=== PATIENT | male | born 1960 | race Caucasian/White ===

== ENCOUNTER 2022-07-30 11:59 | Inpatient (IN) ==
--- NOTE | 2022-07-30 12:24 | ED Triage Note ---
Date of Service July 30, 2022 History of Present Illness This patient was briefly evaluated while in triage. An abbreviated physical exam was performed. This patient is a 62-year-old Male who presents to the ED for evaluation of "well I've got a lot of fluid on my gut." Pt. referred by [facility]. He was experiencing abdominal pain, dyspnea on exertion x2 months. Abdomen is growing, making it harder to breathe. Physical Exam VITALS: Vitals are noted on the nurse's note and reviewed by myself. GENERAL: This is a 62 year old male, in no acute distress, nondiaphoretic, well- developed well-nourished. SKIN: No obvious rashes, edema, erythema HEAD: Normocephalic atraumatic. EYES: Conjunctivae without injection, sclerae without icterus. NECK: No JVD. LUNGS: No retractions or accessory muscle use. MUSCULOSKELETAL: Normal gait. NEURO: Patient was alert and oriented to person place and time. No focal neurological deficits. Initial orders for labs and / or imaging were placed and patient was placed in the waiting area until a bed is available. Please see further documentation for the full ED course.
[2022-07-30 14:34] LABS: Hematocrit (blood only) 36.6 % (42.0-52.0); Hemoglobin 12.1 g/dl (14.0-18.0); Mean Corpuscular Hemoglobin 28.8 pg (25.0-34.0); Mean Corpuscular Hgb Conc 33.1 g/dL (32.0-36.0); Mean Corpuscular Volume 87.1 fL (80.0-100.0); Mean Platelet Volume 9.6 fL (9.4-12.4); Platelet Count 531 K/uL (130-400); RDW Coefficient of Variation 12.9 % (11.5-14.5); RDW Standard Deviation 40.7 fL (36.4-46.3); White Blood Count 22.14 K/ul (4.8-10.8)
[2022-07-30 14:44] LABS: Prothrombin Time 10.9 Seconds (9.0-12.0)
[2022-07-30 14:48] LABS: Albumin Level 3.1 gm/dl (3.4-5.0); Bilirubin,Total 0.6 mg/dl (0.2-1.0); Calcium 8.5 mg/dl (8.6-10.3)
[2022-07-30 14:55] LABS: Albumin Globulin Ratio 0.8 (0.9-2); BUN Creatinine Ratio 27.8 (10-20); Creatinine Clr Calc Pharmacy 67.1 ml/min; Est GFR (African American) 95.2 ml/min; Est GFR (Non-African American) 82.2 ml/min; Globulin 3.8 gm/dl (2.5-4.0); Total Protein 6.9 gm/dl (6.0-8.3)
[2022-07-30 14:57] LABS: Basophils # (auto) 0.02 K/uL (0-0.2); Basophils % (auto) 0.1 %; Immature Granulocytes # (auto) 0.09 K/uL (0.01-0.20); Immature Granulocytes % (auto) 0.4 %; Lymphocytes # (auto) 0.73 K/uL (1.2-3.4); Lymphocytes % (auto) 3.3 %; Monocytes # (auto) 1.35 K/uL (0.11-0.59); Monocytes % (auto) 6.1 %; Neutrophils # (auto) 19.95 K/uL (1.40-6.50); Neutrophils % (auto) 90.1 %
[2022-07-30 14:58] LABS: Troponin I High Sensitivity 31.3 pg/ml (0-20)
--- NOTE | 2022-07-30 15:22 | Electrocardiogram Report ---
Test Reason : Blood Pressure : / mmHG Vent. Rate : 108 BPM Atrial Rate : 108 BPM P-R Int : 162 ms QRS Dur : 092 ms QT Int : 338 ms P-R-T Axes : 042 033 051 degrees QTc Int : 452 ms Sinus tachycardia Cannot rule out Anterior infarct , age undetermined Abnormal ECG No previous ECGs available Confirmed by Rodriguez De La Cruz ([id number]) on 07/30/2022 3:22:39 PM Referred By: Confirmed By:Rodriguez De La Cruz
[2022-07-30] MEDS ORDERED: OPTIRAY 350 100ml IV ONE (15:49)
--- NOTE | 2022-07-30 16:10 | CT Scan Report ---
ABDOMEN AND PELVIS CT WITH IV CONTRAST CT DOSE: 501.04 mGy.cm HISTORY: Acute generalized abdominal pain with soft tissue edema. Abdominal pain, edema TECHNIQUE: Multiaxial CT images of the abdomen and pelvis were performed following the IV administrat ion of 88 cc of Optiray, A dose lowering technique was utilized adhering to the principles of ALARA. COMPARISON STUDY: Chest radiograph of same day FINDINGS: Extensive innumerable pulmonary metastatic lesions throughout the imaged lung valentino measur ing up to approximately 2 cm with intralobular septal thickening suggestive of associated lymphangiti c carcinomatosis. Metastatic borderline enlarged cardiophrenic lymph nodes. The spleen, and adrenal glands are unremarkable. The pancreatic duct measures the upper limits of nor mal at 4 mm. No discrete pancreatic mass identified. There are several scattered hepatic metastasis m easuring up to 3.5 cm. Mild marginal nodularity of the liver may represent cirrhosis versus pseudocir rhosis. Patent portal vein. Unremarkable gallbladder. No hydronephrosis. Subcentimeter hypodense focu s of the interpolar left kidney is too small to characterize. Decompressed urinary bladder with wall thickening. Prostamegaly. Atherosclerosis of the aorta and branch vessels. Pathologic lymphadenopathy is noted within the periportal/pericaval distributions and retroperitoneum. Left aortic index lymph node measures 2.9 x 2.3 cm on image 185. Questioned filling defects within the left external iliac ve in on image 362. Mild adjacent inflammatory stranding. There is moderate fecal retention within the rectum. Mild colonic diverticulosis. Probable serosal im plants of the transverse colon. Moderate colonic fecal retention. There is a 4.2 x 2.0 x 5.0 cm focus of masslike thickening in the cecum and ileocecal valve with circumferential terminal ileal wall thi ckening. Upstream dilated loops of small bowel with air-fluid levels measure up to 4.2 cm. There is a large amount of abdominal pelvic ascites. Moderate peritoneal/omental carcinomatosis. The visualized appendix appears noninflamed. Moderate generalized body wall edema. Unremarkable soft tissues. No ac vidhi fracture or destructive bone lesion identified. IMPRESSION: 1. 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 There is narrowing of the ileocecal valve with result ant upstream small bowel obstruction. 2. Extensive pulmonary metastasis is noted in conjunction with metastatic lymphadenopathy of the ches t and abdomen along with hepatic, omental and peritoneal carcinomatosis. 3. Large volume of abdominal pelvic ascites. 4. Questioned filling defects within the left external iliac vein is likely secondary to mixing artif act. As a precautionary measure, correlation with lower extremity Doppler recommended to exclude a DV T. 5. Additional findings as above. ACT 112: Negative or not required by law. The above report was generated using voice recognition software. It may contain grammatical, syntax o r spelling errors. Electronically signed by: Gurdeep Ventura M.D. 07/30/2022 4:09 PM
--- NOTE | 2022-07-30 16:10 | XRay Report ---
XR chest 1V portable HISTORY: 62 years-old Male Abdominal pain, edema acute chest and abdominal pain COMPARISON: CT abdomen and pelvis of same day. TECHNIQUE: AP view of the chest FINDINGS: Extensive innumerable predominantly subcentimeter nodules throughout all lung valentino. No pneumothorax . Mild blunting of the costophrenic angles suggestive of atelectasis. Mild right hemidiaphragmatic el evation. The bones appear grossly intact. IMPRESSION: Extensive pulmonary metastasis. Please refer to the CT abdomen and pelvis of same day for additional findings. ACT 112: Negative or not required by law. The above report was generated using voice recognition software. It may contain grammatical, syntax o r spelling errors. Electronically signed by: Gurdeep Ventura M.D. 07/30/2022 4:09 PM
[2022-07-30 18:01] LABS: Partial Thromboplastin Ratio 0.9; Partial Thromboplastin Time 25.9 Seconds (21.0-31.0)
[2022-07-30 18:03] LABS: Magnesium 2.1 mg/dl (1.7-2.4)
[2022-07-30 18:08] LABS: Phosphorus 4.1 mg/dl (2.5-4.9)
[2022-07-30] MEDS ORDERED: PIPERACILLIN/TAZOBACTAM 4.5 GM/120 ML BAG IV ONE (18:15)
--- NOTE | 2022-07-30 18:39 | History & Physical Report ---
Date of Service July 30, 2022 Assessment & Plan (1) SBO (small bowel obstruction): Plan: Redd Puckett is a 62-year-old male with no known past medical history and no PCP who presented today referred from urgent care due to abdominal pain and swelling. Found to have metastatic colon cancer with subsequent SBO. SBO Narrowing of the ileocecal valve with resultant upstream small bowel obstruction secondary to soft tissue prominence within the cecum and ileocecal valve suggestive of primary mucosal colonic malignancy Case discussed my attending with general surgery who felt patient is appropriate for this facility at this time General surgery consult placed Patient has NG tube in place continue Maintain strict n.p.o. 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, liver, omentum, peritoneum (see CT results for details) Will consult oncology as patient is interested in discussing possible treatment options given his advanced disease Both myself and attending physician did discuss with the patient that his cancer seems to be very advanced and treatment options may be limited, unlikely to achieve cure Ascites Large volume of abdominopelvic ascites per CT Consider therapeutic paracentesis Filling defet - Filling defects within the left external iliac vein is likely secondary to mixing artifact - Pending Doppler of lower extremities Elevated troponin Likely type II demand DVT prophylaxis: Lovenox 40 mg SQ daily FEN/GI: N.p.o., NG tube in place Dispo: Admit to telemetry CODE STATUS: Full, discussed with patient (2) Colon cancer: (3) Pulmonary metastases: (4) Ascites: History of Present Illness Primary Care Provider: NO PCP Redd Puckett is a 62-year-old male with no known past medical history and no PCP who presented today referred from urgent care due to abdominal pain and swelling. Patient had presented mostly for a gradual buildup of fluid in his abdomen over the past few months. He did report abdominal pain and shortness of breath on exertion. The patient states he never had a regular doctor and had not had any preventative medical care. 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 There is narrowing of the ileocecal valve with resultant upstream small bowel obstruction. Extensive pulmonary metastasis is noted in conjunction with metastatic lymphadenopathy of the chest and abdomen along with hepatic, omental and peritoneal carcinomatosis. Large volume of abdominal pelvic ascites. Questioned filling defects within the left external iliac vein is likely secondary to mixing artifact. As a precautionary measure, correlation with lower extremity Doppler recommended to exclude a DVT. Lab work showed WBC of 12.14, Hgb 12.1, Plt count 531. Sodium level 131, BUN 27 creatinine 0.97, calcium 8.5, AST 53, ALT 48, alk phos 437, troponin 31.3. Procalcitonin 5.39, CEA 70.1. At this time he continues to report abdominal bloating, discomfort, and difficulty taking deep breaths. Can't specify when last BM was but not within past few days. Denies f/c, n/v, CP, palp, HARDING, dizziness. He is understandably concerned/distraught about his cancer diagnosis and is interested in discussing possible treatment options. Allergies Allergy/AdvReac Type Severity Reaction Status Date / Time No Known Allergies Allergy Unverified 07/30/22 19:24 Home Medications Medication Instructions Recorded Confirmed Type naproxen sodium 220 mg tablet 220 mg PO BID PRN Pain 07/30/22 07/30/22 History (Aleve) Past Med/Surg History Social History Smoking Status: Former smoker Feels Safe at Home: Yes Review of Systems Review of Systems: Per HPI Physical Exam Physical Exam: GENERAL: A&Ox3. NAD. HEENT: PERRL, EOMI. Moist mucous membranes. NECK: No JVD. No lymphadenopathy. CHEST/LUNGS: CTAB A/P. No crackles, wheezes, rales, rhonchi. HEART: RRR. No m/g/r. No carotid bruits. ABDOMEN: NT/ND, soft. BS+ x4 EXTREMITIES: No cyanosis, no clubbing, no edema SKIN: Warm and dry. No rashes or lesions. NEUROLOGIC: No FND. Results & Data Results & Data Vital Signs (Past 12 Hours) Vital Signs Temp Pulse Pulse Resp BP BP Pulse Ox 07/30/22 16:38 114 H 07/30/22 16:08 117 H 20 94 07/30/22 16:08 117 H 22 132/87 94 07/30/22 12:22 36.7 C 115 H 22 121/81 97 O2 Del Method 07/30/22 16:38 07/30/22 16:08 Room Air 07/30/22 16:08 Room Air 07/30/22 12:22 Room Air Code Status & VTE Plan VTE Prophylaxis Plan VTE Prophylaxis will be ordered: Yes Supervising Physician Co-Signing Physician Notes I personally saw and examined the patient. I verified all correa points and agree with resident physician Dr Charles PA-C with the following exceptions and/or additions: 62 year old male presents to the ER from [facility] [employer] with gradually worsening abdominal distension for the last 2 months. He has no PCP and no prior colonoscopies. CT concerning for small bowel obstruction at the ileocecal valve due to a mass however he reports no problems with bowel movements, no melena, hematochezia, nausea, vomiting, hematemesis. Also concerning for extensive metastatic spread of disease. I discussed case with surgery (Dr Domingo) on admission. O/E Alert and orientated x3, HS RRR no murmurs, Chest rhonchi b/l, using accessory muscles in mild respiratory distress, Abdo distended with normal BS, generalized mild tenderness without guarding or rebound tenderness A/P Metastatic suspected colon cancer - CEA 70.1, no prior colonoscopy, consult [facility] as likely mass will need to be removed to avoid SBO and can get a tissue sample then. Ascites - should probably be drained prior to surgery to avoid hypotension during surgery and make the surgery easier to perform. US paracentesis ordered with cytology and cultures which can be done in AM. Low suspicion of SBP. Small bowel obstruction - concerning on imaging but not from history, certainly high risk from this though, NG tube placed by general surgery but suspect output will be minimal given his symptoms. NPO, IV fluids. Abnormal CT - possible filling defects in left external iliac vein - will get US venous doppler b/l to further investigate for DVT Elevated high-sensitivity Troponin I - no chest pain or shortness of breath to suggest ACS, will discontinue further labs. Given metastatic cancer, SBO and ascites will cover empirically with IV antibiotics pending ascitic and blood cultures Resident Activity Tracking Resident Involvement: Resident Care Provided Care Provided: Adult Hospital Medicine
--- NOTE | 2022-07-30 20:01 | Surgery Consultation ---
Date of Consultation July 30, 2022 Assessment & Plan (1) SBO (small bowel obstruction): (2) Colon cancer: (3) Pulmonary metastases: (4) Ascites: Plan Patient is being admitted on the hospitalist service. We recommend proceeding as follows: Due to concern for small bowel obstruction would recommend continuing n.p.o. status and maintaining the patient with an NG tube to low continuous suction. Consideration be given to removing this NG tube if patient has improvement of his abdominal exam or improvement of his bowel function There is concern on imaging the patient has an underlying colorectal cancer which by imaging appears may be metastatic. Unfortunately the patient has not had any colonoscopy or tissue diagnosis. The primary service has consulted oncology for further recommendations. Would recommend providing antiemetics if any nausea or vomiting ensue Provide analgesics as needed Provide IV fluid for hydration The primary service has ordered a lower extremity venous Doppler due to concern noted on CT scan for potential DVT. Additional recommendations be forthcoming based on his clinical course as Supervising Physician Co-Signing Physician Notes This case was discussed with the surgical PA. I agree with this plan History of Present Illness Reason for Consultation: Small bowel obstruction with concern for colon cancer History of Present Illness This is a 62-year-old male who presents to the emergency department [facility] secondary to abdominal pressure and generalized abdominal discomfort along with increased abdominal girth. He notes that this has been going on for "a few months.". The patient says that he has never sought medical attention for this issue prior to today. Patient says that he has never undergone a colonoscopy. He has never had abdominal surgery. I asked patient about associated symptoms and he notes a decreased appetite along with an unspecified weight loss. He does report he has been straining to have a bowel movement with constipation issues which is out of the norm for him. He denies any melena or hematochezia. He also denies bright blood per rectum. In addition the patient notes that lately his stools have been decreased caliber. He denies any known family history of colon cancer Since arrival to the hospital the patient has had labs and imaging which I independently reviewed. Chest x-ray showed extensive masses concerning for pulmonary metastases. A CT scan of the abdomen pelvis showed the patient had a soft tissue prominence within the cecum near the ileocecal valve suggestive of a primary colonic malignancy. This causes narrowing of the ileocecal valve which resulted in upstream small bowel obstruction. Pulmonary metastases are noted along with metastatic lymphadenopathy of the chest and abdomen. There is also findings concerning for hepatic and omental as well as peritoneal carcinomatosis. There is a large volume of abdominal pelvic ascites. In addition there is concern the patient has a filling defect within the left iliac vein raising the possibility of a DVT. Labs include a CBC her white blood cell count is elevated 22.1. Hemoglobin and hematocrit 12.1 and 36.6. Platelet count is 531,000. Coagulation studies are normal. Chemistry profile shows sodium is 131 with a normal potassium. BUN has a slight elevation at 27. His creatinine is normal. The patient's magnesium and total bilirubin are normal. There is a slight elevation of the AST at 53. ALT is nonelevated alkaline phosphatase is elevated at 437. Lipase is nonelevated. A CEA level is markedly elevated at 70.1 a COVID test is noted be negative. At the time of my interview patient was resting comfortably in bed. He was in no distress. He has had an NG tube placed and notes that this has provided some alleviation of his abdominal discomfort As noted the patient denies any prior surgeries. He also denies any known medical problems but admits that he does not regularly see any medical providers. 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: No Beliefs That Will Affect Care: None Current Living Situation: Alone Feels Safe at Home: Yes Assistive Devices: None Review of Systems Constitutional: no fever and no chills Eyes: no eye pain Ear, Nose, Mouth, Throat: no ear pain Respiratory: no cough and no dyspnea Cardiovascular: no chest pain Gastrointestinal: as per Subjective / HPI Genitourinary: no dysuria Integumentary: no rash Neurologic: no localized weakness Physical Exam Constitutional: WD/WN, vitals as above Eyes: no conjunctival abnormality ENMT: Ears: no hearing impairment and no external ear abnormality Mouth: no oropharynx abnormality Neck: trachea midline Respiratory: normal respiratory effort; no respiratory distress and no labored breathing Cardiovascular: Rate/Rhythm: regular rate and regular rhythm Gastrointestinal (Abdomen): Abdomen is rotund and markedly distended. Is somewhat tympanic to percussion. There is palpable ascites. There is no rebound tenderness or guarding. There is no pain with palpation Musculoskeletal: No calf tender Skin: no rashes Neurologic: moves all extremities Psychiatric: A+Ox3, euthymic affect Results & Data Vital Signs (Past 12 Hours) Vital Signs Temp Pulse Pulse Resp BP BP Pulse Ox 07/30/22 16:38 114 H 07/30/22 16:08 117 H 20 94 07/30/22 16:08 117 H 22 132/87 94 07/30/22 12:22 36.7 C 115 H 22 121/81 97 O2 Del Method 07/30/22 16:38 07/30/22 16:08 Room Air 07/30/22 16:08 Room Air 07/30/22 12:22 Room Air PG Care Time/CCT Total # of Minutes Spent Total Time Spent with Patient: Total time spent is greater than 50% in coordination of care (as documented) at patient's floor/unit and/or counseling patient: Coding Level of Care Code 04640 IN/OBS CONSULT LVL 5,80M Diagnoses SBO (small bowel obstruction) K56.609 Colon cancer C18.9 Pulmonary metastases C78.00 Ascites R18.8
--- NOTE | 2022-07-30 21:06 | Billing Data ---
Date of Service July 30, 2022 Coding Level of Care Code 05485 INT INP/OBS CARE
[2022-07-30] MEDS ORDERED: ONDANSETRON INJ 2 MG/ML 2 ML VIAL IV PRN (21:10)
[2022-07-30] MEDS ORDERED: ACETAMINOPHEN 1,000 MG/100 ML VIAL IV PRN (21:10)
[2022-07-30] MEDS: ENOXAPARIN INJ 40 MG/0.4 ML SYR SQ SCH (22:08)
[2022-07-30] MEDS: LACTATED RINGER'S 1,000 ML IV SCH (22:09)
--- NOTE | 2022-07-30 23:38 | Ultrasound Report ---
Exam(s): US VENOUS BILATERAL LOWER EXTREMITIES EXAM: US Duplex Bilateral Lower Extremities Veins CLINICAL HISTORY: correlate with CT ?DVT. TECHNIQUE: Real-time duplex ultrasound scan of the bilateral lower extremity veins integrating B-mode two-dimensional vascular structure, Doppler spectral analysis, color flow Doppler imaging and compression. COMPARISON: No prior imaging is available at the time of image interpretation. FINDINGS: Right deep veins: The distal right external iliac vein is patent. No DVT in the right common femoral, femoral, proximal deep femoral or popliteal veins. The veins demonstrate normal color flow, are normally compressible, with normal phasic flow and/or augmentation response. The interrogated calf veins are patent. Right superficial veins: Unremarkable. No thrombus in the saphenofemoral junction. Left deep veins: The distal left external iliac vein is patent. No DVT in the left common femoral, femoral, proximal deep femoral or popliteal veins. The veins demonstrate normal color flow, are normally compressible, with normal phasic flow and/or augmentation response. The interrogated calf veins are patent. Left superficial veins: Unremarkable. No thrombus in the saphenofemoral junction. Soft tissues: No acute findings. No popliteal cyst. IMPRESSION: No evidence for deep vein thrombosis involving the bilateral lower extremities. Electronically signed by: Amado Mancera MD 07/30/22 23:37 PM
--- NOTE | 2022-07-31 00:56 | Emergency Department Note ---
Impression & Plan Pulmonary metastases, SBO (small bowel obstruction), Colon cancer, Abdominal ascites Admit to the [facility] ED Provider Note NAME: ZBIGNIEW COLON AGE: 62 SEX: M ARRIVES VIA: Walk-In INFORMANT: Patient ED PROVIDER(S): Tana Rosales DO CHIEF COMPLAINT: Abdominal pain PLAN: Disposition: Admit to the [facility] Condition: Guarded MEDICAL DECISION MAKING: This is a 62-year-old male patient who went to [facility] today complaining of worsening abdominal pain and distention. Patient was evaluated there and diagnosed with ascites. He was sent here to the emergency department for further evaluation. 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 There is also significant metastatic disease to the lungs. Patient has not followed up with a physician in quite some time. He does smoke. Laboratory studies reveal leukocytosis of 22,000, hemoglobin of 12, platelet count of 531, sodium 131, BUN of 27, and troponin of 31. An NG tube was placed and the case was discussed with general surgery. The pa dandre will be admitted by the [facility]. Triage Nursing notes reviewed and agree with them. Vital Signs: reviewed and remarkable for tachycardia Differential diagnosis: Ascites, cirrhosis, bowel obstruction, primary carcinoma ER treatment provided: Cardiac monitoring Twelve-lead EKG NG tube Supplemental oxygen Diagnostics interpreted by me: ECG: Sinus tachycardia at [address] segment elevation or signs of ischemia Cardiac Monitoring: Sinus tachycardia at 112 Laboratory studies: See below Imaging studies: As per radiology Portable chest x-ray: See report CT scan of the abdomen pelvis: See report HPI: 62/M arrives for evaluation of abdominal pain and distention. Patient has noticed over the past 1 month that his abdomen has increased in size and has become increasingly painful. It is quite difficult for him to take a deep breath. He denies any history of health problems but he does not seen a doctor. He does have a longstanding history of tobacco use. He quit smoking 3 weeks ago because he could not breathe. PAST MEDICAL HISTORY:None PAST SURGICAL HISTORY:None FAMILY HISTORY:See Below SOCIAL HISTORY:Patient quit smoking 3 weeks ago, he does work in [employer], he lives alone as his had in 2019. HOME MEDICATIONS:None ALLERGIES:None VITALS:See Below PHYSICAL EXAMINATION: HEENT: Head - normocephalic and atraumatic. Pupils are equal, round, and reactive to light. Extraocular eye muscles are intact, and sclera are anicteric. Nose - moist nasal mucosa without discharge. Mouth - moist buccal mucosa. Oropharynx is nonerythematous and there is no tonsillar exudate or edema noted. Neck: Supple; no cervical lymphadenopathy noted Heart: Tachycardic rate and regular rhythm. There is a normal S1 and S2 with no murmurs, clicks, or gallops appreciated. Lungs: Clear to auscultation bilaterally with no wheezes, rales, or rhonchi. Abdomen: Extremely distended with hyperactive bowel sounds. The abdomen was nontender. Extremities: No evidence of cyanosis, clubbing, or edema. There are easily pal pable peripheral pulses. Skin: Pale, warm and dry with good turgor and no rashes. ED COURSE: Times/Reassessments: 1630: Patient was evaluated in room A-9. A complete history and physical was performed. An IV lock was initiated and labs are drawn as above. Patient was originally evaluated in triage and had laboratory studies ordered and chest x-ray and CT scan ordered. Patient was placed on supplemental oxygen on my exam as he was hypoxic with conversation. An order was placed for continuous cardiac monitoring. The patient was in a sin us tachycardia at 112 I reviewed the results of the labs and CT scan with the patient. He had an NG tube placed. Discussed the case with general surgery and with the [facility]. Tana Rosales DO Past Med/Surg History Medical History (Updated 08/01/22 @ 10:45 by Mana Ritter DNP) Abdominal pain, generalized Advanced care planning/counseling discussion Cancer related pain Palliative care by specialist Social History Smoking Status: Former smoker Hx Alcohol Use: Yes Hx Substance Use: No Communication Ability: Effective Independent Contractor Required: No Beliefs That Will Affect Care: None Current Living Situation: Alone Feels Safe at Home: Yes Assistive Devices: None Allergies Allergies Allergy/AdvReac Type Severity Reaction Status Date / Time No Known Allergies Allergy Unverified 07/30/22 19:24 Home Meds Home Medications Medication Instructions Recorded Confirmed naproxen sodium 220 mg tablet 220 mg PO BID PRN Pain 07/30/22 07/30/22 (Alejosé miguel) Results & Data (ED) Vital Signs Vital Signs - 24 hr 07/30/22 12:22 07/30/22 16:08 07/30/22 16:08 Temperature 36.7 C Temperature Source Temporal Artery Scan Pulse Rate 115 H 117 H Pulse Rate [Apical] 117 H Pulse Rate from SpO2 Sensor Pulse Rhythm Regular Regular Respiratory Rate 22 22 20 Respiratory Effort / Characteristics Non-Labored Respiratory Depth Normal Normal Blood Pressure 121/81 Blood Pressure [Right Arm] 132/87 Blood Pressure Mean 94 Blood Pressure Mean [Right Arm] 102 Pulse Oximetry 97 94 94 Oxygen Delivery Method Room Air Room Air Room Air Sepsis Recent Fever Within 48 Hours No Sepsis New/Unexplained Change in Mental Status No Sepsis Action Taken by Nursing No Action Required 07/30/22 16:38 07/30/22 17:01 07/30/22 17:30 Temperature Temperature Source Pulse Rate 114 H 115 H 114 H Pulse Rate [Apical] Pulse Rate from SpO2 Sensor 113 H Pulse Rhythm Respiratory Rate 24 23 Respiratory Effort / Characteristics Respiratory Depth Blood Pressure Blood Pressure [Right Arm] Blood Pressure Mean Blood Pressure Mean [Right Arm] Pulse Oximetry 95 Oxygen Delivery Method Sepsis Recent Fever Within 48 Hours Sepsis New/Unexplained Change in Mental Status Sepsis Action Taken by Nursing 07/30/22 18:00 07/30/22 18:30 Temperature Temperature Source Pulse Rate 115 H 116 H Pulse Rate [Apical] Pulse Rate from SpO2 Sensor 115 H 113 H Pulse Rhythm Respiratory Rate 23 21 Respiratory Effort / Characteristics Respiratory Depth Blood Pressure Blood Pressure [Right Arm] Blood Pressure Mean Blood Pressure Mean [Right Arm] Pulse Oximetry 95 96 Oxygen Delivery Method Sepsis Recent Fever Within 48 Hours Sepsis New/Unexplained Change in Mental Status Sepsis Action Taken by Nursing Laboratory Data 07/30/22 14:15 07/30/22 14:15 Lab Results 07/30/22 07/30/22 07/30/22 Range/Units 14:15 14:15 14:15 WBC 22.14 H (4.8-10.8) K/ul RBC 4.20 L (4.70-6.10) M/uL Hgb 12.1 L (14.0-18.0) g/dl Hct 36.6 L (42.0-52.0) % MCV 87.1 (80.0-100.0) fL MCH 28.8 (25.0-34.0) pg MCHC 33.1 (32.0-36.0) g/dL RDW Std Deviation 40.7 (36.4-46.3) fL RDW Coeff of Andrew 12.9 (11.5-14.5) % Plt Count 531 H (130-400) K/uL MPV 9.6 (9.4-12.4) fL Immature Gran % (Auto) 0.4 % Neut % (Auto) 90.1 % Lymph % (Auto) 3.3 % Ferry % (Auto) 6.1 % Eos % (Auto) 0.0 % Baso % (Auto) 0.1 % Neut # (Auto) 19.95 H (1.40-6.50) K/uL Lymph # (Auto) 0.73 L (1.2-3.4) K/uL Ferry # (Auto) 1.35 H (0.11-0.59) K/uL Eos # (Auto) 0.00 (0-0.50) K/uL Baso # (Auto) 0.02 (0-0.2) K/uL Immature Gran # (Auto) 0.09 (0.01-0.20) K/uL PT 10.9 (9.0-12.0) Seconds INR 1.0 (0.9-1.1) APTT (21.0-31.0) Seconds PTT Ratio Sodium 131 L (136-145) mmol/L Potassium 5.0 (3.5-5.1) mmol/L Chloride 98 (98-107) mmol/L Carbon Dioxide 23 (21-32) mmol/L Anion Gap 10 (3-11) BUN 27 H (6-23) mg/dl Creatinine 0.97 (0.6-1.4) mg/dl Est Cr Clr Drug Dosing 67.1 ml/min Est GFR ( Amer) 95.2 ml/min Est GFR (Non-Af Amer) 82.2 ml/min BUN/Creatinine Ratio 27.8 H (10-20) Glucose 100 H (70-99(Fasting)) mg/dl Calcium 8.5 L (8.6-10.3) mg/dl Phosphorus (2.5-4.9) mg/dl Magnesium (1.7-2.4) mg/dl Total Bilirubin 0.6 (0.2-1.0) mg/dl AST 53 H (13-39) U/L ALT 48 (7-52) U/L Alkaline Phosphatase 437 H (34-104) U/L Troponin I High Sens 31.3 H (0-20) pg/ml B-Natriuretic Peptide (0-100) pg/ml Total Protein 6.9 (6.0-8.3) gm/dl Albumin 3.1 L (3.4-5.0) gm/dl Globulin 3.8 (2.5-4.0) gm/dl Albumin/Globulin Ratio 0.8 L (0.9-2) Lipase 15 (11-82) U/L Carcinoembryonic Ag (0-2.5) ng/ml Procalcitonin (0-0.5) ng/ml SARS-CoV-2, RNA, NAAT (NEGATIVE) Staphylococcus sp PCR (NotDetected) Staph aureus (PCR) (NotDetected) mecA/C & MREJ Resist Gene (NotDetected) mecA/C-Methicil Resis Gene (NotDetected) Staph epidermidis (PCR) (NotDetected) Bld Cult ID Panel PCR (NotDetected) 07/30/22 07/30/22 07/30/22 Range/Units 14:15 14:15 14:15 WBC (4.8-10.8) K/ul RBC (4.70-6.10) M/uL Hgb (14.0-18.0) g/dl Hct (42.0-52.0) % MCV (80.0-100.0) fL MCH (25.0-34.0) pg MCHC (32.0-36.0) g/dL RDW Std Deviation (36.4-46.3) fL RDW Coeff of Andrew (11.5-14.5) % Plt Count (130-400) K/uL MPV (9.4-12.4) fL Immature Gran % (Auto) % Neut % (Auto) % Lymph % (Auto) % Ferry % (Auto) % Eos % (Auto) % Baso % (Auto) % Neut # (Auto) (1.40-6.50) K/uL Lymph # (Auto) (1.2-3.4) K/uL Ferry # (Auto) (0.11-0.59) K/uL Eos # (Auto) (0-0.50) K/uL Baso # (Auto) (0-0.2) K/uL Immature Gran # (Auto) (0.01-0.20) K/uL PT (9.0-12.0) Seconds INR (0.9-1.1) APTT (21.0-31.0) Seconds PTT Ratio Sodium (136-145) mmol/L Potassium (3.5-5.1) mmol/L Chloride (98-107) mmol/L Carbon Dioxide (21-32) mmol/L Anion Gap (3-11) BUN (6-23) mg/dl Creatinine (0.6-1.4) mg/dl Est Cr Clr Drug Dosing ml/min Est GFR ( Amer) ml/min Est GFR (Non-Af Amer) ml/min BUN/Creatinine Ratio (10-20) Glucose (70-99(Fasting)) mg/dl Calcium (8.6-10.3) mg/dl Phosphorus 4.1 (2.5-4.9) mg/dl Magnesium 2.1 (1.7-2.4) mg/dl Total Bilirubin (0.2-1.0) mg/dl AST (13-39) U/L ALT (7-52) U/L Alkaline Phosphatase (34-104) U/L Troponin I High Sens (0-20) pg/ml B-Natriuretic Peptide 56 (0-100) pg/ml Total Protein (6.0-8.3) gm/dl Albumin (3.4-5.0) gm/dl Globulin (2.5-4.0) gm/dl Albumin/Globulin Ratio (0.9-2) Lipase (11-82) U/L Carcinoembryonic Ag (0-2.5) ng/ml Procalcitonin 5.39 H (0-0.5) ng/ml SARS-CoV-2, RNA, NAAT (NEGATIVE) Staphylococcus sp PCR (NotDetected) Staph aureus (PCR) (NotDetected) mecA/C & MREJ Resist Gene (NotDetected) mecA/C-Methicil Resis Gene (NotDetected) Staph epidermidis (PCR) (NotDetected) Bld Cult ID Panel PCR (NotDetected) 07/30/22 07/30/22 07/30/22 Range/Units 14:15 16:55 17:20 WBC (4.8-10.8) K/ul RBC (4.70-6.10) M/uL Hgb (14.0-18.0) g/dl Hct (42.0-52.0) % MCV (80.0-100.0) fL MCH (25.0-34.0) pg MCHC (32.0-36.0) g/dL RDW Std Deviation (36.4-46.3) fL RDW Coeff of Andrew (11.5-14.5) % Plt Count (130-400) K/uL MPV (9.4-12.4) fL Immature Gran % (Auto) % Neut % (Auto) % Lymph % (Auto) % Ferry % (Auto) % Eos % (Auto) % Baso % (Auto) % Neut # (Auto) (1.40-6.50) K/uL Lymph # (Auto) (1.2-3.4) K/uL Ferry # (Auto) (0.11-0.59) K/uL Eos # (Auto) (0-0.50) K/uL Baso # (Auto) (0-0.2) K/uL Immature Gran # (Auto) (0.01-0.20) K/uL PT (9.0-12.0) Seconds INR (0.9-1.1) APTT 25.9 (21.0-31.0) Seconds PTT Ratio 0.9 Sodium (136-145) mmol/L Potassium (3.5-5.1) mmol/L Chloride (98-107) mmol/L Carbon Dioxide (21-32) mmol/L Anion Gap (3-11) BUN (6-23) mg/dl Creatinine (0.6-1.4) mg/dl Est Cr Clr Drug Dosing ml/min Est GFR ( Amer) ml/min Est GFR (Non-Af Amer) ml/min BUN/Creatinine Ratio (10-20) Glucose (70-99(Fasting)) mg/dl Calcium (8.6-10.3) mg/dl Phosphorus (2.5-4.9) mg/dl Magnesium (1.7-2.4) mg/dl Total Bilirubin (0.2-1.0) mg/dl AST (13-39) U/L ALT (7-52) U/L Alkaline Phosphatase (34-104) U/L Troponin I High Sens (0-20) pg/ml B-Natriuretic Peptide (0-100) pg/ml Total Protein (6.0-8.3) gm/dl Albumin (3.4-5.0) gm/dl Globulin (2.5-4.0) gm/dl Albumin/Globulin Ratio (0.9-2) Lipase (11-82) U/L Carcinoembryonic Ag 70.1 H (0-2.5) ng/ml Procalcitonin (0-0.5) ng/ml SARS-CoV-2, RNA, NAAT NEGATIVE (NEGATIVE) Staphylococcus sp PCR (NotDetected) Staph aureus (PCR) (NotDetected) mecA/C & MREJ Resist Gene (NotDetected) mecA/C-Methicil Resis Gene (NotDetected) Staph epidermidis (PCR) (NotDetected) Bld Cult ID Panel PCR (NotDetected) 07/30/22 Range/Units 17:25 WBC (4.8-10.8) K/ul RBC (4.70-6.10) M/uL Hgb (14.0-18.0) g/dl Hct (42.0-52.0) % MCV (80.0-100.0) fL MCH (25.0-34.0) pg MCHC (32.0-36.0) g/dL RDW Std Deviation (36.4-46.3) fL RDW Coeff of Andrew (11.5-14.5) % Plt Count (130-400) K/uL MPV (9.4-12.4) fL Immature Gran % (Auto) % Neut % (Auto) % Lymph % (Auto) % Ferry % (Auto) % Eos % (Auto) % Baso % (Auto) % Neut # (Auto) (1.40-6.50) K/uL Lymph # (Auto) (1.2-3.4) K/uL Ferry # (Auto) (0.11-0.59) K/uL Eos # (Auto) (0-0.50) K/uL Baso # (Auto) (0-0.2) K/uL Immature Gran # (Auto) (0.01-0.20) K/uL PT (9.0-12.0) Seconds INR (0.9-1.1) APTT (21.0-31.0) Seconds PTT Ratio Sodium (136-145) mmol/L Potassium (3.5-5.1) mmol/L Chloride (98-107) mmol/L Carbon Dioxide (21-32) mmol/L Anion Gap (3-11) BUN (6-23) mg/dl Creatinine (0.6-1.4) mg/dl Est Cr Clr Drug Dosing ml/min Est GFR ( Amer) ml/min Est GFR (Non-Af Amer) ml/min BUN/Creatinine Ratio (10-20) Glucose (70-99(Fasting)) mg/dl Calcium (8.6-10.3) mg/dl Phosphorus (2.5-4.9) mg/dl Magnesium (1.7-2.4) mg/dl Total Bilirubin (0.2-1.0) mg/dl AST (13-39) U/L ALT (7-52) U/L Alkaline Phosphatase (34-104) U/L Troponin I High Sens (0-20) pg/ml B-Natriuretic Peptide (0-100) pg/ml Total Protein (6.0-8.3) gm/dl Albumin (3.4-5.0) gm/dl Globulin (2.5-4.0) gm/dl Albumin/Globulin Ratio (0.9-2) Lipase (11-82) U/L Carcinoembryonic Ag (0-2.5) ng/ml Procalcitonin (0-0.5) ng/ml SARS-CoV-2, RNA, NAAT (NEGATIVE) Staphylococcus sp PCR DETECTED A (NotDetected) Staph aureus (PCR) DETECTED A (NotDetected) mecA/C & MREJ Resist Gene MRSA Not Detected (NotDetected) mecA/C-Methicil Resis Gene Not Detected (NotDetected) Staph epidermidis (PCR) DETECTED A (NotDetected) Bld Cult ID Panel PCR See PCR Comment (NotDetected) Administered Medications Enoxaparin Sodium (Enoxaparin Inj 40 Mg/0.4 Ml Syr) 40 mg SQ Q24H DWAYNE Stop: 08/29/22 21:29 Last Admin: 07/31/22 21:40 Dose: 40 mg Documented By: Admin: 07/30/22 22:08 Dose: 40 mg Documented By: CRUZ Lactated Ringer's (Lr) 1,000 mls @ 80 mls/hr IV .[id number] [facility] Stop: 08/29/22 21:09 Last Admin: 08/01/22 10:53 Dose: 80 mls/hr Documented By: Infusion: 08/01/22 10:53 Dose: 80 mls/hr Documented By: Admin: 07/31/22 23:14 Dose: 80 mls/hr Documented By: Infusion: 07/31/22 23:07 Dose: 80 mls/hr Documented By: Admin: 07/31/22 10:37 Dose: 80 mls/hr Documented By: Infusion: 07/31/22 10:37 Dose: 80 mls/hr Documented By: Admin: 07/30/22 22:09 Dose: 80 mls/hr Documented By: CRUZ Piperacillin Sod/Tazobactam (Sod 4.5 gm/ Dextrose) 120 mls @ 30 mls/hr IV Q8H [facility]; Protocol Stop: 08/10/22 02:29 Last Admin: 08/01/22 10:52 Dose: 30 mls/hr Documented By: Infusion: 08/01/22 08:08 Dose: 0 mls/hr Documented By: Admin: 08/01/22 03:23 Dose: 30 mls/hr Documented By: Infusion: 07/31/22 21:27 Dose: 0 mls/hr Documented By: Admin: 07/31/22 17:32 Dose: 30 mls/hr Documented By: Infusion: 07/31/22 14:43 Dose: 0 mls/hr Documented By: Admin: 07/31/22 10:37 Dose: 30 mls/hr Documented By: Infusion: 07/31/22 06:22 Dose: 0 mls/hr Documented By: Infusion: 07/31/22 05:58 Dose: 0 mls/hr Documented By: Admin: 07/31/22 03:48 Dose: 30 mls/hr Documented By: MARK Discontinued Medications Piperacillin Sod/Tazobactam Sod (Zosyn) 4.5 gm in 120 mls @ 240 mls/hr IV NOW ONE Stop: 07/30/22 18:44 Last Infusion: 07/30/22 19:04 Dose: 0 mls/hr Documented By: Admin: 07/30/22 18:28 Dose: 240 mls/hr Documented By: CRUZ Ioversol (Optiray 350 100ml) 88 ml IV ONCE ONE Stop: 07/30/22 15:50 Last Admin: 07/30/22 15:50 Dose: 88 ml Documented By: DIEGO Ioversol (Optiray 350 100ml) 86 ml IV ONCE ONE Stop: 08/01/22 10:45 Last Admin: 08/01/22 10:45 Dose: 86 ml Documented By: IVA Imaging Data Radiologist's Impression: Chest X-Ray 07/30/22 12:27 XR chest 1V portable HISTORY: 62 years-old Male Abdominal pain, edema acute chest and abdominal pain COMPARISON: CT abdomen and pelvis of same day. TECHNIQUE: AP view of the chest FINDINGS: Extensive innumerable predominantly subcentimeter nodules throughout all lung valentino. No pneumothorax. Mild blunting of the costophrenic angles suggestive of atelectasis. Mild right hemidiaphragmatic elevation. The bones appear grossly intact. IMPRESSION: Extensive pulmonary metastasis. Please refer to the CT abdomen and pelvis of same day for additional findings. ACT 112: Negative or not required by law. The above report was generated using voice recognition software. It may contain grammatical, syntax or spelling errors. Electronically signed by: Gurdeep Ventura M.D. 07/30/2022 4:09 PM Abdomen/Pelvis CT 07/30/22 12:[address] WITH IV CONTRAST CT DOSE: 501.04 mGy.cm HISTORY: Acute generalized abdominal pain with soft tissue edema. Abdominal pain, edema TECHNIQUE: Multiaxial CT images of the abdomen and pelvis were performed following the IV administration of 88 cc of Optiray, A dose lowering technique was utilized adhering to the principles of ALARA. COMPARISON STUDY: Chest radiograph of same day FINDINGS: Extensive innumerable pulmonary metastatic lesions throughout the imaged lung valentino measuring up to approximately 2 cm with intralobular septal thickening suggestive of associated lymphangitic carcinomatosis. Metastatic borderline enlarged cardiophrenic lymph nodes. The spleen, and adrenal glands are unremarkable. The pancreatic duct measures the upper limits of normal at 4 mm. No discrete pancreatic mass identified. There are several scattered hepatic metastasis measuring up to 3.5 cm. Mild marginal nodularity of the liver may represent cirrhosis versus pseudocirrhosis. Patent portal vein. Unremarkable gallbladder. No hydronephrosis. Subcentimeter hypodense focus of the interpolar left kidney is too small to characterize. Decompressed urinary bladder with wall thickening. Prostamegaly. Atherosclerosis of the aorta and branch vessels. Pathologic lymphadenopathy is noted within the periportal/pericaval distributions and retroperitoneum. Left aortic index lymph node measures 2.9 x 2.3 cm on image 185. Questioned filling defects within the l eft external iliac vein on image 362. Mild adjacent inflammatory stranding. There is moderate fecal retention within the rectum. Mild colonic diverticulosis. Probable serosal implants of the transverse colon. Moderate colonic fecal retention. There is a 4.2 x 2.0 x 5.0 cm focus of masslike thickening in the cecum and ileocecal valve with circumferential terminal ileal wall thickening. Upstream dilated loops of small bowel with air-fluid levels measure up to 4.2 cm. There is a large amount of abdominal pelvic ascites. Moderate peritoneal/omental carcinomatosis. The visualized appendix appears noninflamed. Moderate generalized body wall edema. Unremarkable soft tissues. No acute fracture or destructive bone lesion identified. IMPRESSION: 1. Heterogeneous masslike area of soft tissue prominence within the cecum and ileocecal valve is suggestive of a primary mucosal colonic malignancy. There is narrowing of the ileocecal valve with resultant upstream small bowel obstruction. 2. Extensive pulmonary metastasis is noted in conjunction with metastatic lymphadenopathy of the chest and abdomen along with hepatic, omental and peritoneal carcinomatosis. 3. Large volume of abdominal pelvic ascites. 4. Questioned filling defects within the left external iliac vein is likely secondary to mixing artifact. As a precautionary measure, correlation with lower extremity Doppler recommended to exclude a DVT. 5. Additional findings as above. ACT 112: Negative or not required by law. The above report was generated using voice recognition software. It may contain grammatical, syntax or spelling errors. Electronically signed by: Gurdeep Ventura M.D. 07/30/2022 4:09 PM Venous Doppler Study 07/30/22 17:08 Exam(s): US VENOUS BILATERAL LOWER EXTREMITIES EXAM: US Duplex Bilateral Lower Extremities Veins CLINICAL HISTORY: correlate with CT ?DVT. TECHNIQUE: Real-time duplex ultrasound scan of the bilateral lower extremity veins integrating B-mode two-dimensional vascular structure, Doppler spectral analysis, color flow Doppler imaging and compression. COMPARISON: No prior imaging is available at the time of image interpretation. FINDINGS: Right deep veins: The distal right external iliac vein is patent. No DVT in the right common femoral, femoral, proximal deep femoral or popliteal veins. The veins demonstrate normal color flow, are normally compressible, with normal phasic flow and/or augmentation response. The interrogated calf veins are patent. Right superficial veins: Unremarkable. No thrombus in the saphenofemoral junction. Left deep veins: The distal left external iliac vein is patent. No DVT in the left common femoral, femoral, proximal deep femoral or popliteal veins. The veins demonstrate normal color flow, are normally compressible, with normal phasic flow and/or augmentation response. The interrogated calf veins are patent. Left superficial veins: Unremarkable. No thrombus in the saphenofemoral junction. Soft tissues: No acute findings. No popliteal cyst. IMPRESSION: No evidence for deep vein thrombosis involving the bilateral lower extremities. Electronically signed by: Amado Mancera MD 07/30/22 23:37 PM Discharge Plan Visit Data Chief Complaint: Abdominal Pain Stated Complaint: FLUID IN ABDOMEN ED Provider: Tana Rosales Discharge Problem: Pulmonary metastases, SBO (small bowel obstruction), Colon cancer, Abdominal ascites Patient Disposition: Admitted As Inpatient Discharge Instructions Interventions: ED Discharge Assessment Last Done: 07/30/22 21:11 Pulmonary metastases Qualifiers: Laterality: bilateral Qualified Code(s): C78.01 - Secondary malignant neoplasm of right lung Colon cancer Qualifiers: Colon location: unspecified part of colon Qualified Code(s): C18.9 - Malignant neoplasm of colon, unspecified Abdominal ascites Qualifiers: Ascites type: malignant Qualified Code(s): R18.0 - Malignant ascites
[2022-07-31] MEDS: PIPERACILLIN/TAZOBACTAM 4.5 GM in DEXTROSE 5% 100 ML IV SCH ×3 (03:48→17:32)
[2022-07-31 04:16] LABS: Appearance Urine Clear (Clear); Bacteria Urine Automated Negative (Negative); Bilirubin Urine Negative (Negative); Blood Urine Negative (Negative); Color Urine Dark Yellow; Glucose Urine UA Negative (Negative); Ketones Urine 1+ (Negative); Leukocyte Esterase Urine Negative (Negative); Nitrite Urine Negative (Negative); Protein Urine 1+ (Negative); RBC Urine Automated 0-4 /hpf (0-4); Specific Gravity Urine > 1.045 (1.000-1.030); Urobilinogen Urine Negative (Negative)
[2022-07-31 06:59] LABS: Basophils # (auto) 0.05 K/uL (0-0.2); Basophils % (auto) 0.2 %; Immature Granulocytes # (auto) 0.12 K/uL (0.01-0.20); Immature Granulocytes % (auto) 0.5 %; Lymphocytes # (auto) 0.73 K/uL (1.2-3.4); Lymphocytes % (auto) 3.3 %; Mean Corpuscular Hemoglobin 28.9 pg (25.0-34.0); Mean Corpuscular Hgb Conc 32.4 g/dL (32.0-36.0); Mean Corpuscular Volume 89.5 fL (80.0-100.0); Mean Platelet Volume 9.4 fL (9.4-12.4); Monocytes # (auto) 1.35 K/uL (0.11-0.59); Monocytes % (auto) 6.1 %; Neutrophils # (auto) 19.71 K/uL (1.40-6.50); Neutrophils % (auto) 89.9 %; Platelet Count 456 K/uL (130-400); RDW Coefficient of Variation 12.9 % (11.5-14.5); RDW Standard Deviation 42.2 fL (36.4-46.3); White Blood Count 21.96 K/ul (4.8-10.8)
[2022-07-31 07:55] LABS: Albumin Globulin Ratio 0.9 (0.9-2); Albumin Level 2.8 gm/dl (3.4-5.0); BUN Creatinine Ratio 31.3 (10-20); Bilirubin,Total 0.6 mg/dl (0.2-1.0); Calcium 8.2 mg/dl (8.6-10.3); Creatinine Clr Calc Pharmacy 77.8 ml/min; Est GFR (African American) 92.9 ml/min; Est GFR (Non-African American) 80.2 ml/min; Globulin 3.2 gm/dl (2.5-4.0); Magnesium 2.1 mg/dl (1.7-2.4); Potassium 4.2 mmol/L (3.5-5.1)
--- NOTE | 2022-07-31 08:12 | Oncology Consultation ---
Date of Consultation July 31, 2022 Assessment & Plan (1) Colonic mass: (2) Pulmonary metastases: (3) Lymphadenopathy: (4) Peritoneal carcinomatosis: (5) Ascites: Plan 62-year-old gentleman who presented with bowel obstruction and was found to have likely cecal mass with extensive pulmonary, peritoneal and lymph node metastasis highly suggestive of stage IV colon cancer. -Await results of diagnostic paracentesis. Hopefully have enough malignant cells to perform molecular testing -Consider CT chest to complete staging work-up in anticipation of systemic chemotherapy -Consider diverting ostomy if bowel obstruction does not improve with conservative management. Will defer to surgery on this -Treatment options would depend on final pathology. However, given patient's current performance status he would benefit from palliative care evaluation to discuss goals of care. Thank you for this consult. Oncology will continue following patient while in the hospital. Please feel free to call if you have any further questions History of Present Illness Reason for Consultation: Suspected colon cancer with metastasis Attending Physician: Ingrid Wolf MD History of Present Illness Very pleasant 62-year-old gentleman who was admitted to [facility] after presenting with worsening abdominal distention and abdominal pain. While in the ED, CT abdomen and pelvis was obtained which revealed masslike area of soft tissue prominence within the cecum and ileocecal valve is suggestive of a primary mucosal colonic malignancy, extensive pulmonary metastasis, metastatic lymphadenopathy of the chest and abdomen along with hepatic, omental and peritoneal carcinomatosis and large volume of abdominal pelvic ascites. Labs revealed CEA of 70.1.He underwent diagnostic/therapeutic paracentesis earlier today Endorses shortness of breath with exertion, abdominal distention/pain and weight loss. Denies hematochezia.He states that he has never had a colonoscopy. Denies family history of G.I malignancy Allergies Allergy/AdvReac Type Severity Reaction Status Date / Time No Known Allergies Allergy Unverified 07/30/22 19:24 Home Medications Medication Instructions Recorded Confirmed Type naproxen sodium 220 mg tablet 220 mg PO BID PRN Pain 07/30/22 07/30/22 History (Aleve) Patient History Social History Smoking Status: Former smoker Hx Alcohol Use: Yes Hx Substance Use: No Communication Ability: Effective Donor Services Specialist Required: No Beliefs That Will Affect Care: None Current Living Situation: Alone Feels Safe at Home: Yes Assistive Devices: None Review of Systems Review of Systems: All systems reviewed & are unremarkable except as noted in Subjective Physical Exam Constitutional: WD/WN, vitals as above + ill appearing, + cachectic and + lethargic Eyes: PERRL, conjunctivae normal, anicteric sclerae Cardiovascular: RRR, no murmur, no edema Gastrointestinal (Abdomen): Inspection/Auscultation: + abdomen distended Results & Data Vital Signs (Past 12 Hours) Vital Signs Temp Pulse Pulse Resp BP BP BP 07/31/22 07:41 104 H 07/31/22 07:33 36.2 C L 105 H 18 149/89 H 07/31/22 04:25 105 H 07/31/22 04:00 36.8 C 105 H 14 147/78 H 07/31/22 00:41 110 H 20 127/86 07/31/22 00:15 110 H 07/30/22 23:56 07/30/22 23:56 110 H 24 118/82 07/30/22 23:07 110 H 16 130/93 07/30/22 22:00 108 H 21 07/30/22 22:00 118/92 07/30/22 21:30 109 H 21 07/30/22 21:30 128/91 07/30/22 21:00 103 H 15 07/30/22 21:00 144/89 H 07/30/22 20:30 105 H 15 07/30/22 20:30 139/93 07/30/22 20:12 131/94 07/30/22 20:12 113 H 23 07/30/22 20:38 107 H Pulse Ox Pulse Ox O2 Del Method O2 Del Method 07/31/22 07:41 07/31/22 07:33 88 L Room Air 07/31/22 04:25 07/31/22 04:00 95 Room Air 07/31/22 00:41 93 Room Air 07/31/22 00:15 07/30/22 23:56 96 Room Air 07/30/22 23:56 96 Room Air 07/30/22 23:07 92 Room Air 07/30/22 22:00 92 07/30/22 22:00 07/30/22 21:30 95 07/30/22 21:30 07/30/22 21:00 92 07/30/22 21:00 07/30/22 20:30 95 07/30/22 20:30 07/30/22 20:12 07/30/22 20:12 96 07/30/22 20:38 (2) Pulmonary metastases Laterality: bilateral Qualified Code(s): C78.01 - Secondary malignant neoplasm of right lung; C78.02 - Secondary malignant neoplasm of left lung
[2022-07-31] MEDS: LACTATED RINGER'S 1,000 ML IV SCH ×2 (10:37→23:14)
[2022-07-31 12:34] LABS: Appearance Peritoneal Fluid Cloudy; Lymphocytes, Fluid 12 %; Mono,Macrophage,Mesothelial 83 %; Neutrophils, Fluid 5 %; RBC Peritoneal Fluid Auto < 2000 /uL; WBC Peritoneal Fluid Auto 305 /ul (0-300)
[2022-07-31 12:48] LABS: Troponin I High Sensitivity 28.9 pg/ml (0-20)
[2022-07-31 12:56] LABS: A calco-baum cmplx NotReported Not Detected (NotDetected); Bact fragilis Not Reported Not Detected (NotDetected); C auris Not Reported Not Detected (NotDetected); Calbicans Not Reported Not Detected (NotDetected); Candida glabrata Not Reported Not Detected (NotDetected); Candida krusei Not Reported Not Detected (NotDetected); Cneoformans/gatti Not Reported Not Detected (NotDetected); Cparapsilosis Not Reported Not Detected (NotDetected); Ctropicalis Not Reported Not Detected (NotDetected); E cloacae compx Not Reported Not Detected (NotDetected); Efaecalis Not Reported Not Detected (NotDetected); Efaecium Not Reported Not Detected (NotDetected); Enterobacterales Not Reported Not Detected (NotDetected); Escherichia coli Not Reported Not Detected (NotDetected); H influenzae Not Reported Not Detected (NotDetected); K aerogenes Not Reported Not Detected (NotDetected); Koxytoca Not Reported Not Detected (NotDetected); Kpneumoniae grp Not Reported Not Detected (NotDetected); Lmonocyt Not Reported Not Detected (NotDetected); N meningitidis Not Reported Not Detected (NotDetected); P aeruginosa Not Reported Not Detected (NotDetected); Proteus spp Not Reported Not Detected (NotDetected); Salmonella spp Not Reported Not Detected (NotDetected); Smarcescens Not Reported Not Detected (NotDetected); Staph lugdunensis Not Reported Not Detected (NotDetected); Staph spp. Not Reported DETECTED (NotDetected); Staphaureus Not Reported DETECTED (NotDetected); Staphepi Not Reported DETECTED (NotDetected); Staphylococcus spp. DETECTED (NotDetected); Stenmaltophilia Not Reported Not Detected (NotDetected); Strep agal(GrpB) Not Reported Not Detected (NotDetected); Strep pneum Not Reported Not Detected (NotDetected); Strep pyog (GrpA) Not Reported Not Detected (NotDetected); Strep spp Not Reported Not Detected (NotDetected); mecAC Resistant Gene Not Detected (NotDetected); mecAC+MREJ Resistant Gene MRSA Not Detected (NotDetected)
[2022-07-31 13:08] LABS: Staphylococcus epidermidis DETECTED (NotDetected)
--- NOTE | 2022-07-31 13:44 | Hospitalist Progress Note ---
Date of Service July 31, 2022 Assessment & Plan (1) SBO (small bowel obstruction): Plan: Redd Puckett is a 62-year-old male with no known past medical history and no PCP (has not seen or needed a doctor since childhood) who p/w abdominal pain and swelling. Found to have metastatic colon cancer with subsequent SBO. Narrowing of the ileocecal valve with resultant upstream small bowel obstruction secondary to soft tissue prominence within the cecum and ileocecal valve suggestive of primary mucosal colonic malignancy General surgery consult placed-will discuss plan to see if needs partial colectomy vs diverting ileostomy continue NG tube to LIS Maintain strict n.p.o. continue IV fluids, watch lytes continue Zosyn for now given leukocytosis, elevated procal, and bacteremia as below (which is likely skin contaminant) As needed antiemetics and analgesics -follow CBC, CMP, Magnesium, phos, procal in AM (2) Colon cancer: Plan: Metastatic colon cancer with suspected Secondary malignant neoplasm of liver and lungs, with carcinomatosis CEA elevated at 70 LFTs elevated from liver mets New diagnosis -- patient had never had screening colonoscopy performed Soft tissue prominence within the cecum and ileocecal valve 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, liver, omentum, p eritoneum (see CT results for details) Will consult oncology as patient is interested in discussing possible treatment options given his advanced disease-pending -if going to have surgery, may need port placed concurrently -will repeat BCxs to ensure sterility prior to port placement (3) Pulmonary metastases: Plan: with acute respiratory failure with hypoxia-POx 88% on RA, now requiring 2LNC likely from colon CA monitor for need for O2 (4) Ascites: Plan: 2/2 metastatic disease paracentesis performed Gram stain/cx and cytology pending (5) Demand ischemia of myocardium: Plan: trop mildly elevated at 31 and down to 28 this AM on repeat check ECG with old anterior infarct With LE edema on exam which is likely related to ascites and peritoneal carcinomatosis, however will check ECHO for EF and for WMAs especially as will likely need surgery continue tele monitoring (6) Bacteremia: Plan: 1/4 bottles with Staph epidermidis likely skin contaminant but given leukocytosis and possible need for port as above, will repeat BCxs and continue Zosyn for now (7) Hyponatremia: Plan: Na+ 133 (up from 131 on admission) Likely from dehydration, possible SIADH? Has been on LR IVFs now and is improving no urine studies checked on admission-check Ur Na and Osmol follow BMP (8) Peripheral edema: Plan: likely 2/2 abdominal mets Dopplers venous LEs bilat negative checking ECHO follow Plan DVT proph-Lovenox SQ Dispo-continued stay on tele Admission and Anticipated Discharge Date Admission Date: July 30, 2022 Subjective Pt denies further abd pain at this time. No nausea. NGT is uncomfortable. Tearful about diagnosis of likely metastatic CA. Tele with NSR-ST low 100s Review of Systems Review of Systems: All systems reviewed & are unremarkable except as noted in HPI & below no headaches, no CP, SOB, no urinary issues Physical Exam Constitutional: WD/WN, vitals as above Eyes: + anicteric sclerae Neck: trachea midline, no thyromegaly Respiratory: normal respiratory effort, lungs clear to auscultation Cardiovascular: Rate/Rhythm: regular rate and regular rhythm Heart Sounds: no murmur Extremities: + edema (1+ pitting edema legs bilat) Gastrointestinal (Abdomen): Inspection/Auscultation: + hypoactive bowel sounds; + abdomen abnormal to inspection (NGT in place) and abdomen not distended Percussion/Palpation: abdomen soft; abdomen nontender Musculoskeletal: Extremities: no cyanosis and no clubbing Skin: no rashes, warm and dry Neurologic: moves all extremities and awake; no focal motor deficits Psychiatric: A+Ox3, euthymic affect Results & Data Results & Data Vital Signs (Past 12 Hours) Vital Signs Temp Pulse Pulse Resp BP Pulse Ox O2 Del Method 07/31/22 11:45 36.4 C L 94 H 16 145/90 H 93 Nasal Cannula 07/31/22 10:31 36.4 C L 100 H 18 146/89 H 92 Nasal Cannula 07/31/22 10:01 Nasal Cannula 07/31/22 08:22 18 93 Nasal Cannula 07/31/22 07:41 104 H 07/31/22 07:33 36.2 C L 105 H 18 149/89 H 88 L Room Air 07/31/22 04:25 105 H 07/31/22 04:00 36.8 C 105 H 14 147/78 H 95 Room Air O2 Flow Rate 07/31/22 11:45 2 03/28/23 10:31 2 07/31/22 10:01 2 07/31/22 08:22 2 07/31/22 07:41 07/31/22 07:33 07/31/22 04:25 07/31/22 04:00 Laboratory Results CBC, CMP, CEA, trop reviewed Diagnostic Findings Dopplers LE bilat negative PG Care Time/CCT Total # of Minutes Spent Total Time Spent with Patient: Total time spent is greater than 50% in coordination of care (as documented) at patient's floor/unit and/or counseling patient: Coding Level of Care Code 23982 SUB INP/OBS CARE 3/50MIN Diagnoses SBO (small bowel obstruction) K56.609 Colon cancer C18.9 Colon location: unspecified part of colon Pulmonary metastases C78.01; C78.02 Laterality: bilateral Ascites R18.8 Demand ischemia of myocardium I24.8 Bacteremia R78.81 Hyponatremia E87.1 Peripheral edema R60.9 (2) Colon cancer Colon location: unspecified part of colon Qualified Code(s): C18.9 - Malignant neoplasm of colon, unspecified (3) Pulmonary metastases Laterality: bilateral Qualified Code(s): C78.01 - Secondary malignant neoplasm of right lung; C78.02 - Secondary malignant neoplasm of left lung
--- NOTE | 2022-07-31 14:39 | Ultrasound Report ---
Ultrasound-guided paracentesis INDICATION: Ascites fluid PROCEDURE: Procedure and risks were explained. Informed consent was obtained. A final timeout was com pleted. A pocket of ascites was identified in the left lower quadrant. The left lower quadrant was pr epped and draped in sterile fashion. 1% buffered lidocaine was utilized for skin anesthesia. Utilizing ultrasound guidance, 5 Polish safety centesis catheter was advanced into the pocket of asci rashel. Ultrasound images were obtained. A total of 6 L of cloudy yellow fluid was removed at the time o f the procedure, with 1 L sent to the lab for analysis. The catheter was removed and Band-Aid applied . The patient tolerated the procedure well. IMPRESSION: Ultrasound-guided paracentesis as detailed above. Performed, dictated, and signed by Amado Ghosh PA-C; to be co-signed by Dr. Gurdeep Ventura. Electronically signed by: Gurdeep Ventura M.D. 07/31/2022 3:00 PM
--- NOTE | 2022-07-31 16:02 | XCELERA ---
[id number]
--- NOTE | 2022-07-31 19:29 | Surgery Progress Note ---
Date of Service July 31, 2022 Assessment & Plan (1) Colonic mass: (2) Peritoneal carcinomatosis: (3) SBO (small bowel obstruction): Plan Obstruction due to ileocecal mass. Diffuse thoracic and abdominal mets with evidence of carcinomatosis in the abdomen and in the face of diffuse ascites. Not likely to relieve with conservative management if due to this mass. If this is the case and he remains obstructed, will not be able to prep for a colonoscopy for tissue. This patient may benefit from proximal diversion, will consider loop ileostomy with consideration to obtain tissue for diagnosis during that time. Troponin elevated and patient has had some abnormality on EKG. Recommend cardiac evaluation in preparation for a surgical procedure. Medical Oncology to evaluate and determine if this patient is healthy enough and a candidate for chemotherapy in consideration for port insertion. Admission and Anticipated Discharge Date Admission Date: July 30, 2022 Subjective Patient feels improved today s/p paracentesis where the patient says 6 jugs were filled. He still has some remaining ascites. He denies passing flatus. Says he had a bowel movement this am but did not pass any air. He denies nausea. Physical Exam Constitutional: + frail appearing, cooperative and comfortable; not in distress Appears cachectic, ill appearing, Respiratory: normal respiratory effort; no respiratory distress, no labored breathing and does not use accessory muscles Gastrointestinal (Abdomen): Inspection/Auscultation: + abdomen distended; no abdominal wall ecchymosis and no abdominal edema Percussion/Palpation: abdomen soft and + ascites; abdomen nontender, no guarding and abdomen not rigid Neurologic: moves all extremities and awake; not confused and not obtunded Results & Data Vital Signs (Past 12 Hours) Vital Signs Temp Pulse Pulse Resp BP Pulse Ox O2 Del Method 07/31/22 15:26 104 H 07/31/22 11:45 36.4 C L 94 H 16 145/90 H 93 Nasal Cannula 07/31/22 10:31 36.4 C L 100 H 18 146/89 H 92 Nasal Cannula 07/31/22 10:01 Nasal Cannula 07/31/22 08:22 18 93 Nasal Cannula 07/31/22 07:41 104 H 07/31/22 07:33 36.2 C L 105 H 18 149/89 H 88 L Room Air O2 Flow Rate 07/31/22 15:26 07/31/22 11:45 2 07/31/22 10:31 2 07/31/22 10:01 2 07/31/22 08:22 2 07/31/22 07:41 07/31/22 07:33 PG Care Time/CCT Total # of Minutes Spent Total Time Spent with Patient: Total time spent is greater than 50% in coordination of care (as documented) at patient's floor/unit and/or counseling patient: Coding Level of Care Code 63132 SUB INP/OBS CARE MIN Diagnoses Colonic mass K63.89 Peritoneal carcinomatosis C78.6 SBO (small bowel obstruction) K56.609
[2022-07-31] MEDS: ENOXAPARIN INJ 40 MG/0.4 ML SYR SQ SCH (21:40)
[2022-08-01] MEDS: PIPERACILLIN/TAZOBACTAM 4.5 GM in DEXTROSE 5% 100 ML IV SCH ×3 (03:23→17:59)
[2022-08-01 06:52] LABS: Hematocrit (blood only) 34.1 % (42.0-52.0); Hemoglobin 11.2 g/dl (14.0-18.0); Mean Corpuscular Hemoglobin 29.1 pg (25.0-34.0); Mean Corpuscular Hgb Conc 32.8 g/dL (32.0-36.0); Mean Corpuscular Volume 88.6 fL (80.0-100.0); Mean Platelet Volume 9.6 fL (9.4-12.4); Platelet Count 425 K/uL (130-400); RDW Coefficient of Variation 13.1 % (11.5-14.5); Red Blood Count 3.85 M/uL (4.70-6.10); White Blood Count 20.17 K/ul (4.8-10.8)
[2022-08-01 07:28] LABS: Basophils # (auto) 0.03 K/uL (0-0.2); Basophils % (auto) 0.1 %; Eosinophils # (auto) 0.01 K/uL (0-0.50); Immature Granulocytes # (auto) 0.14 K/uL (0.01-0.20); Immature Granulocytes % (auto) 0.7 %; Lymphocytes # (auto) 0.69 K/uL (1.2-3.4); Lymphocytes % (auto) 3.4 %; Monocytes # (auto) 1.15 K/uL (0.11-0.59); Monocytes % (auto) 5.7 %; Neutrophils # (auto) 18.15 K/uL (1.40-6.50); Neutrophils % (auto) 90.1 %
[2022-08-01 07:30] LABS: Albumin Globulin Ratio 0.9 (0.9-2); Albumin Level 2.5 gm/dl (3.4-5.0); BUN Creatinine Ratio 29.4 (10-20); Bilirubin,Total 0.5 mg/dl (0.2-1.0); Calcium 7.8 mg/dl (8.6-10.3); Creatinine Clr Calc Pharmacy 90.7 ml/min; Est GFR (African American) 106.7 ml/min; Est GFR (Non-African American) 92.1 ml/min; Globulin 2.9 gm/dl (2.5-4.0); Magnesium 2.1 mg/dl (1.7-2.4); Phosphorus 3.3 mg/dl (2.5-4.9); Potassium 3.9 mmol/L (3.5-5.1); Total Protein 5.4 gm/dl (6.0-8.3)
--- NOTE | 2022-08-01 10:27 | Palliative Care Consultation ---
Date of Consultation August 01, 2022 Assessment & Plan (1) Palliative care by specialist: Met with pt/family. Provided overview of Palliative Medicine, a subspecialty that provides specialized medical care for people living with a serious illness by offering a focus on quality of life. We spoke about the strong evidence supporting the initiation of Palliative Care into the management of this patient with advanced met lung cancer; palliative care, when provided alongside oncologic care, leads to improved QOL, fewer depressive symptoms, better prognosis understanding and longer median survival anabell when given the overall poor prognosis and QOL issues at hand. (Taina et al. (2010). Early palliative care for patients with metastatic sjs-kbxrl-scjz lung cancer. [place] J of Med 363(3), 733-742. Doi: [id number].) Palliative Medicine is often conflated with hospice: I advised patient/family that Palliative and hospice can be partners but we are not the same. It is important to understand the difference so that we may be informed, and not afraid. Palliative Medicine works to improve QOL through reduction of symptom burden/more control over their illness, for both the patient and family. Palliative medicine clinicians are board certified, specially-trained and another member of the patient's medical care team. We often provide an extra layer of support because our care is based on the needs of the patient, not the prognosis; as such, it's appropriate at any age/advancing stage of a serious illness and can be provided along with curative treatment. Palliative Medicine clinicians are also trained in advanced communication methodologies, to facilitate complex discussions about advanced illness planning, which are needed to help assure that the treatment choices match the patient's goals, aka delivering Goal Concordant care. Finally, we discussed that hospice is a visiting nurse service that focuses on care delivered at the very end of life for patients with terminal illness, with life expectancy less than 6 month. (2) Advanced care planning/counseling discussion: A face to face advance illness planning conversation was conducted x 60 min with Redd, to review goals and expectations, support shared decision-making, and engage in disease specific advance care planning. This type of advance care planning is sometimes referred to as 'preparedness planning. It is used to review the risks and benefits of offered therapy, elicit and deepen understanding of the underlying illness and therapeutic options, ensure adequate psychosocial support, address existential concerns and coping, and engage in end-of-life planning. Preparedness planning is not meant to replace informed consent discussions. Palliative medicine plays a role in the process of deepening a patients understanding of this specific medical intervention and ensuring this treatment aligns with their goals of care remains a central tenet of the planning conversation. We reviewed that all chronic/progressive disease has a declining trajectory over time where facets of patient self-identity and independence are lost. Every acute event leads to a further decline, resulting- many times, in a new baseline. Advised that the greatest priority is to determine what matters most to pt, then family and to develop a plan of care that is aligned with those priorities. He would like a broader family meeting once we have pathology and shares that he wishes to try chemo if offered and would like to try to live longer. He was dismayed to hear this is not a curable cancer and asked me several times if it was curable. We discussed he has a very advanced cancer and that would not be curable but perhaps cancer directed therapies may help slow it down, but this is largely dependent on what type of cancer this proves to be and what oncology feels are best options. I asked him about his goals at this stage and he shared he has adult dtr in her 40-50s whom he has had zero contact with for decades but he wants to make amends and has been able to obtain her mother's phone number, so he is preparing himself to call her mother [facility] (after work) and see if she would share their daughter's contact info. Redd also shared that his of 15 yr from cancer 3 years ago and he feels his life just "fell apart at the seams after that." He is very tearful and sobbing at times, so I asked field professional to come by [facility] for more support and counseling. Redd lives alone but has 4 siblings whom he feels will be emotional support but otherwise have their own busy lives and work etc so he is worried about how he would have some help at home if needed as well as worries about losing his job/having no income/would this make him homeless etc., - we reviewed that cancer clinic navigators can assist with this as well as home health nursing support. I also advised he contact his HR office to inquire about disability options and he replied that luckily a coworker/friend from work already did this on his behalf and is supposed to visit lev with some HR paperwork. We discussed code status and reviewed CPR survival: Only about 10% of patients who have htk-iu-dbeurnzl sudden cardiac arrest survive to hospital discharge, with many survivors having neurologic impairment. This rate is even lower among patients with serious coexisting conditions, ie chance of survival to hospital discharge for in-hospital CPR in older people is low to moderate (15%) and decreases with age, comorbidities, performance status and frailty: for pts > 70 yo, more than half of the patients who initially survived resuscitation in the hospital before hospital discharge. The pooled survival to discharge after in-hospital CPR was 18% for patients between 70 and 79 years old, 15% for patients between 80 and 89 years old and 11% for patients of 90 years and older. (Selwyn CHIN, Hilario LJ, Patrice F, et al. Trends in short- and long-term survival among yfz-qc-mzjekqql cardiac arrest patients alive at hospital arrival. Circulation 2014;130:6946-2472. AND Liane C, Luz T, Karen R, et al. Performance of clinical risk scores to predict mortality and neurological outcome in cardiac arrest patients. Resuscitation 2019;136:21-29.) He states he does not want to on machines or in any prolonged manner/he watched his suffer with her cancer and was with her until the end of her life. We discussed how this is in alignment with ode status of DNR/DNI aka allow a natural and he was in agreement-code status changed to DNR/DNI. Redd asked what could b done if he annot have chemo or if the caner is "fatal" and so I provided education about the hospice benefit: an interdisciplinary program offered by nurses, nurses aides, social workers, chaplains and a medical secretary receptionist for patients with a terminal condition and a life expectancy of less than 6 months. This is covered by Medicare at 100%/no out of pocket expense to patient and all meds/supplies needed by patient for the reason they are on hospice are paid for/covered by hospice. The goal is assure quality of life of the patient in their home setting (home, correction, inpatient hospice setting) by providing symptoms management, psychosocial and spiritual support. However, they cannot offer 24 hours care and if the family is unable to provide that care, they will have to consider personal care with out of pocket cost vs. correction placement. We discussed the goals of hospice as a patient service and the goals of care; we discussed EOL trajectories and transitions anabell the emotional impact of realizing mortality as a concrete reality from prior abstract considerations. Pt was reassured that no matter where they are along this trajectory, they are not alone - their medical team will remain by their side through their journey. Discussed the pros/cons of accepting help when especially weakened and distressed by pain-which would also help provide relief/decrease caregiver burden/strain. (3) Cancer related pain: He denies pain at this time and feels it has been signif improved with paracentesis. Late addendum: path confirms adeno ca colon (4) Abdominal pain, generalized: (5) Abdominal ascites: s/p paracentesis with total 6 L of cloudy yellow fluid removed, with 1 L sent to the lab for analysis. Ascites type: malignant Qualified Code(s): R18.0 - Malignant ascites (6) SBO (small bowel obstruction): awaiting diverting ileostomy (7) Colonic mass: (8) Pulmonary metastases: Laterality: bilateral Qualified Code(s): C78.01 - Secondary malignant neoplasm of right lung; C78.02 - Secondary malignant neoplasm of left lung Plan +adenoca colon Awaiting diverting ileostomy: suggest a detailed discussion with patient prior to surgery about what an ostomy is, how it needs to be cared for etc. He does not have a clear understanding of this and maybe surgery + wound/ostomy nurse can meet with him so he better comprehends the expected outcomes and management needs. He has a lower than average health literacy. He lives alone, does not have caregiver support and it is very high chance he won't be able to manage an ostomy and living with cancer all on his own . He is resistant to recommendations for placement given the other objectives and goals he has set for himself: getting finances straightened out, amends with dtr etc. Family meeting TBD after further input from oncology/review of options: he will need close cancer nurse navigator following ACP/GOC 60 min face to face discussion separate from clinical consult was done, as noted above, pt is now DNR/DNI I have updated primary team. Thank you for allowing us to participate in the ongoing care of this patient. Please don't hesitate to call or page with any additional concerns. Dr. Mana Ritter DNP Director, Palliative Care History of Present Illness Reason for Consultation: On 08/01/22 @ 08:57 Bobbi Díaz Wrote To PedritoRoselia Cristal Likely metastatic colon cancer. Goals of care Attending Physician: Ingrid Wolf MD History of Present Illness Redd Puckett is a 62yo male who does not have a PCP and does not routinely seek medical care and so he went to [facility] 07/30/22 with c/o worsening abdominal pain and distention, which he states was progressing over the past few months. At [facility], he was diagnosed with ascites and referred to [facility] ED for further evaluation. During ED eval, +significant abdominal distention and CT demonstrated primary ileocecal colon mass causing a bowel obstruction along with evidence of significant metastatic disease to the lungs. Redd is an active everyday smoker. He does not have a PCP. NGT placed This is felt to be a likely metastatic colon cancer, advanced stage. he has neve r had a screening colonoscopy. 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 This will not be a curable cancer. He has an SBO with narrowing of the ileocecal valve with resultant upstream small bowel obstruction secondary to soft tissue prominence within the cecum and ileocecal valve suggestive of primary mucosal colonic malignancy. NGT placed and surgery following, continues on IVF and Zosyn 4.5 g every 8 hours. He was seen by surgery 07/30/22: " Due to concern for small bowel obstruction would recommend continuing n.p.o. status and maintaining the patient with an NG tube to low continuous suction. Consideration be given to removing this NG tube if patient has improvement of his abdominal exam or improvement of his bowel function There is concern on imaging the patient has an underlying colorectal cancer which by imaging appears may be metastatic. Unfortunately the patient has not had any colonoscopy or tissue diagnosis. The primary service has consulted oncology for further recommendations. Would recommend providing antiemetics if any nausea or vomiting ensue Provide analgesics as needed Provide IV fluid for hydration The primary service has ordered a lower extremity venous Doppler due to concern noted on CT scan for potential DVT." in follow up 07/31/22, surgery team noted "Obstruction due to ileocecal mass. Diffuse thoracic and abdominal mets with evidence of carcinomatosis in the abdomen and in the face of diffuse ascites. Not likely to relieve with conservative management if due to this mass. If this is the case and he remains obstructed, will not be able to prep for a colonoscopy for tissue. This patient may benefit from proximal diversion, will consider loop ileostomy with consideration to obtain tissue for diagnosis during that time. Troponin elevated and patient has had some abnormality on EKG." Oncology recommends optimization of current situation then can re evaluate but no immediate plans for chemo/treatment options will depend on final pathology. Oncology recc palliative med consult to assist with cancer related pain and sx mgt as well as reviewing ACP/GOC. Allergies Allergy/AdvReac Type Severity Reaction Status Date / Time No Known Allergies Allergy Unverified 07/30/22 19:24 Home Medications Medication Instructions Recorded Confirmed Type naproxen sodium 220 mg tablet 220 mg PO BID PRN Pain 07/30/22 07/30/22 History (Aleve) Patient History Medical History (Updated 08/01/22 @ 10:45 by Mana Ritter, JEMAL) Abdominal pain, generalized Advanced care planning/counseling discussion Cancer related pain Palliative care by specialist Social History Smoking Status: Former smoker Hx Alcohol Use: Yes Hx Substance Use: No Communication Ability: Effective Access Nurse Required: No Beliefs That Will Affect Care: Spiritual Current Living Situation: Alone Feels Safe at Home: Yes Assistive Devices: None Review of Systems Review of Systems: All systems reviewed & are unremarkable except as noted in Subjective Physical Exam Physical Exam: Frail male, semi reclined in bed, tearful throughout this visit, at times sobbing. Bitemp wasting. PERRLA. EOMIs +NGT with dark brown to light brown drainage lungs diminished, few rhonchi, no stridor CV S1S2, no JVD, no murmur Abd distended, firm, mildly TTP, no guarding Generalized weakness BLE +1 edema/pitting AAOx3 Very tearful, crying, dejected mood Results & Data Vital Signs (Past 12 Hours) Vital Signs Temp Pulse Pulse Resp BP Pulse Ox Pulse Ox 08/01/22 08:40 08/01/22 08:03 100 H 08/01/22 07:14 36.3 C L 86 16 133/84 90 08/01/22 03:52 36.6 C 91 H 18 134/88 93 07/31/22 23:59 97 H 07/31/22 23:43 36.7 C 91 H 18 128/86 94 07/31/22 23:00 96 O2 Del Method O2 Del Method O2 Flow Rate 08/01/22 08:40 Nasal Cannula 2 08/01/22 08:03 08/01/22 07:14 Room Air 08/01/22 03:52 Nasal Cannula 2 07/31/22 23:59 07/31/22 23:43 Nasal Cannula 2 07/31/22 23:00 Room Air Laboratory Results Addendum: Pathology + adenoca colon CEA very high at 70.1 AST 53 / ALT wnl/Alk phos 437 WBC 22.1 COVID negative Diagnostic Findings KUB today: FINDINGS: Multiple dilated gas-filled loops of small bowel again noted consistent with the patient's small bowel obstruction. These measure up to 3.7 cm in diameter. This is similar to the prior study. Nasogastric tube terminates in the proximal stomach with the fenestrated line at the gastroesophageal junction. This should be advanced by approximately 5-10 cm. Pulmonary metastatic disease and ascites again noted. No renal calculi. No ureteral calculi. Calcifications in the deep pelvis likely represent phleboliths. No pneumoperitoneum or pneumatosis. IMPRESSION: 1. Persistent small bowel obstruction pattern. 2. The nasogastric tube should be advanced by approximately 5 to 10 cm. 3. Pulmonary metastatic disease and ascites again noted. Chest CT today: FINDINGS: Thyroid: Normal in size and heterogeneous in attenuation. Thoracic aorta: There is mild atherosclerotic calcification of the thoracic aorta, which is normal in caliber and demonstrates 4-vessel variant arch anatomy. No dissection is seen. There is less than 50% stenosis of the left subclavian artery below the thoracic outlet. Pulmonary vasculature: The pulmonary trunk is normal in caliber. There are no filling defects identified in the central pulmonary vessels to indicate pulmonary embolus. Note that this examination was not protocoled for evaluation of the pulmonary arteries. Heart: The heart is normal in size and without pericardial effusion. Lungs and pleural spaces: There are small pleural effusions with dependent consolidation. There is extensive/diffuse pulmonary metastatic disease. The majority of these nodules are subcentimeter. Conglomerate lesions are seen throughout the lung bases Mediastinum: There is mediastinal lymphadenopathy. A subcarinal node measures 1.5 cm short axis. Radha: There is bulky hilar adenopathy. Hilar lymph nodes measure up to 2 cm in short axis. Axillae: There is no axillary lymphadenopathy. Upper abdomen: An enteric tube is in place and terminates in the stomach. Again seen is evidence of multifocal hepatic metastatic disease. The largest lesion is seen in the left lobe and measures up to 4.8 cm. There is a moderate volume of upper abdominal ascites. There is bulky upper abdominal lymphadenopathy. Gastrohepatic nodes measure up to 1.6 cm. An aortocaval node measures 4.5 x 1.9 cm. Skeletal structures: The skeletal structures appear osteopenic. No lytic or blastic bony lesions are seen. IMPRESSION: 1. There is extensive/diffuse pulmonary metastatic disease. 2. Mediastinal and hilar lymphadenopathy is likely metastatic. 3. Small pleural effusions with dependent consolidation. 4. Again seen is bulky upper abdominal lymphadenopathy and hepatic metastatic disease. This is unchanged from yesterday's abdominal CT. 5. Upper abdominal ascites. 6. Additional findings above. Paracentesis 07/31/22: Utilizing ultrasound guidance, 5 [place] safety centesis catheter was advanced into the pocket of ascites. Ultrasound images were obtained. A total of 6 L of cloudy yellow fluid was removed at the time of the procedure, with 1 L sent to the lab for analysis. The catheter was removed and Band-Aid applied. The patient tolerated the procedure well. CT A/P showing heterogeneous masslike area of soft tissue prominence within the cecum and ileocecal valve is suggestive of a primary mucosal colonic malignancy. There is narrowing of the ileocecal valve with resultant upstream small bowel obstruction. Extensive pulmonary metastasis is noted in conjunction with metastatic lymphadenopathy of the chest and abdomen along with hepatic, omental and peritoneal carcinomatosis. Large volume of abdominal pelvic ascites. Questioned filling defects within the left external iliac vein is likely secondary to mixing artifact. Echo: LVEF 65-70%/WNL, no RWMA, mild concentric LVH, no valve pathology. PG Care Time/CCT Total # of Minutes Spent Total Time Spent: 120 Total Time Spent with Patient: Total time spent is greater than 50% in coordination of care (as documented) at patient's floor/unit and/or counseling patient: I spent 120 minutes overall addressing this very complex case: 20 in medical data review/discussion with referring provider(s) and/or preparation for the visit 45in direct interaction with the patent 60 additional min for face to face Advance Care Planning/Goals of Care discussions as detailed above in note (must be >16min) 15 in subsequent review and synthesis of assessment and plan 15 in communicating with other providers regarding the patient's case: field professional, primary team Prolonged Care Time Prolonged Care Time: Yes Advanced Care Planning 20088 Advanced Care Planning 30 Min [id number] Advanced Care Planning Additional 30 [place] [address] IN/OBS CONSULT LVL 5,80M Patient Type New History Comprehensive Exam Comprehensive Medical Decision Making High Complexity Diagnoses Palliative care by specialist Z51.5 Advanced care planning/counseling discussion Z71.89 Cancer related pain G89.3 Abdominal pain, generalized R10.84 Abdominal ascites R18.0 Ascites type: malignant SBO (small bowel obstruction) K56.609 Colonic mass K63.89 Pulmonary metastases C78.01; C78.02 Laterality: bilateral Additional Codes Advanced Care Planning - 82376 Advanced Care Planning 30 Min: 92202 Advanced Care Planning 30 Min ([id number]) Advanced Care Planning - 93759 Advanced Care Planning Additional 30 Min: 28546 Advanced Care Planning Additional 30 Min ([id number]) Prolonged Care Time - Prolonged Care Time: Yes ([id number])
[2022-08-01] MEDS ORDERED: OPTIRAY 350 100ml IV ONE (10:44)
[2022-08-01] MEDS: LACTATED RINGER'S 1,000 ML IV SCH (10:53)
--- NOTE | 2022-08-01 10:58 | XRay Report ---
KUB HISTORY: Small bowel obstruction. Follow-up. COMPARISON: Abdomen and pelvis CT 07/30/2022. FINDINGS: Multiple dilated gas-filled loops of small bowel again noted consistent with the patient's small bowel obstruction. These measure up to 3.7 cm in diameter. This is similar to the prior study. Nasogastric tube terminates in the proximal stomach with the fenestrated line at the gastroesophageal junction. This should be advanced by approximately 5-10 cm. Pulmonary metastatic disease and ascites again noted. No renal calculi. No ureteral calculi. Calcifications in the deep pelvis likely repres ent phleboliths. No pneumoperitoneum or pneumatosis. IMPRESSION: 1. Persistent small bowel obstruction pattern. 2. The nasogastric tube should be advanced by approximately 5 to 10 cm. 3. Pulmonary metastatic disease and ascites again noted. ACT 112: Negative or not required by law. Electronically signed by: Alex Boland M.D. 08/01/2022 10:57 AM
--- NOTE | 2022-08-01 12:12 | CT Scan Report ---
CT SCAN OF THE CHEST WITH IV CONTRAST CLINICAL HISTORY: Cancer staging. Colonic mass. COMPARISON STUDY: Chest x-ray dated 07/30/2022. Abdominal CT dated 07/30/2022. TECHNIQUE: Following the IV administration of 86 cc of Optiray 350, CT scan of the thorax was perform ed from the thoracic inlet to the upper abdomen. Images are reviewed in the axial, sagittal, and cookie nal planes. IV contrast was administered without complication. A dose lowering technique was utilize d adhering to the principles of ALARA. CT DOSE: 294.44 mGy.cm FINDINGS: Thyroid: Normal in size and heterogeneous in attenuation. Thoracic aorta: There is mild atherosclerotic calcification of the thoracic aorta, which is normal in caliber and demonstrates 4-vessel variant arch anatomy. No dissection is seen. There is less than 50 % stenosis of the left subclavian artery below the thoracic outlet. Pulmonary vasculature: The pulmonary trunk is normal in caliber. There are no filling defects identif ied in the central pulmonary vessels to indicate pulmonary embolus. Note that this examination was no t protocoled for evaluation of the pulmonary arteries. Heart: The heart is normal in size and without pericardial effusion. Lungs and pleural spaces: There are small pleural effusions with dependent consolidation. There is ex tensive/diffuse pulmonary metastatic disease. The majority of these nodules are subcentimeter. Conglo merate lesions are seen throughout the lung bases Mediastinum: There is mediastinal lymphadenopathy. A subcarinal node measures 1.5 cm short axis. Radha: There is bulky hilar adenopathy. Hilar lymph nodes measure up to 2 cm in short axis. Axillae: There is no axillary lymphadenopathy. Upper abdomen: An enteric tube is in place and terminates in the stomach. Again seen is evidence of m ultifocal hepatic metastatic disease. The largest lesion is seen in the left lobe and measures up to 4.8 cm. There is a moderate volume of upper abdominal ascites. There is bulky upper abdominal lymphad enopathy. Gastrohepatic nodes measure up to 1.6 cm. An aortocaval node measures 4.5 x 1.9 cm. Skeletal structures: The skeletal structures appear osteopenic. No lytic or blastic bony lesions are seen. IMPRESSION: 1. There is extensive/diffuse pulmonary metastatic disease. 2. Mediastinal and hilar lymphadenopathy is likely metastatic. 3. Small pleural effusions with dependent consolidation. 4. Again seen is bulky upper abdominal lymphadenopathy and hepatic metastatic disease. This is unchan ged from yesterday's abdominal CT. 5. Upper abdominal ascites. 6. Additional findings above. ACT 112: Negative or not required by law. Electronically signed by: Jeronimo Mandel M.D. 08/01/2022 12:11 PM
--- NOTE | 2022-08-01 16:56 | Hospitalist Progress Note ---
Date of Service August 01, 2022 Assessment & Plan (1) SBO (small bowel obstruction): Plan: Redd Puckett is a 62-year-old male with no known past medical history and no PCP (has not seen or needed a doctor since childhood) who p/w abdominal pain and swelling. Found to have metastatic colon cancer with subsequent SBO. Narrowing of the ileocecal valve with resultant upstream small bowel obstruction secondary to soft tissue prominence within the cecum and ileocecal valve suggestive of primary mucosal colonic malignancy -is passing some flatus and a BM on 08/01 but KUB shows persistent SBO General surgery consult placed-likely plan for diverting ileostomy tomorrow? Will d/w Surgery continue NG tube to LIS Maintain strict n.p.o. continue IV fluids, watch lytes continue Zosyn for now given leukocytosis, elevated procal, and bacteremia as below (which is likely skin contaminant) As needed antiemetics and analgesics -follow CBC, CMP, Magnesium, phos in AM Leukocytosis likely reactive to metastatic disease and less likely from infection (2) Colon cancer: Plan: Metastatic colon cancer with Secondary malignant neoplasm of liver and lungs, with carcinomatosis CEA elevated at 70 LFTs elevated from liver mets CT Chest with extensive metastatic pulm disease New diagnosis -- patient had never had screening colonoscopy performed Soft tissue prominence within the cecum and ileocecal valve 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, liver, omentum, peritoneum (see CT results for details) consult oncology appreciated-plan for port and palliative chemo most likely now that final path available - needs port placed concurrently-does have Staph epi and MSSA in 1/[address] after blood culture negative sandra 48 hrs -follow repeat BCxs to ensure sterility prior to port placement-NGTD -will need ostomy education (3) Pulmonary metastases: Plan: with acute respiratory failure with hypoxia-POx 88% on RA, now requiring 2LNC likely from colon CA monitor for need for O2 (4) Ascites: Plan: 2/2 metastatic disease paracentesis performed and 6L removed on admission Gram stain/cx no growth, cytology with adenocarcinoma of colon (5) Demand ischemia of myocardium: Plan: trop mildly elevated at 31 and down to 28 on repeat check ECG with old anterior infarct With LE edema on exam which is likely related to ascites and peritoneal carcinomatosis, checked ECHO for EF and for WMAs -normal continue tele monitoring-sinus tach (6) Bacteremia: Plan: 1/4 bottles with Staph epidermidis and MSSA likely skin contaminant but given leukocytosis and possible need for port as above, repeat BCxs performed and continue Zosyn for now (7) Hyponatremia: Plan: Na+ 131 on admission and now up to 139 after paracentesis and hydration Ur Na 23 and Ur Osmol 923 consistent with hypovolemia follow BMP continue LR while NPO (8) Peripheral edema: Plan: likely 2/2 abdominal mets Dopplers venous LEs bilat negative ECHO normal follow Plan DVT proph-Lovenox SQ but hold for surgery Dispo-continued stay on tele Admission and Anticipated Discharge Date Admission Date: July 30, 2022 Subjective Pt reports some flatus and had a BM today. No abd pain but still feels bloated. Tearful when discussing final path is colon adenocarcinoma. Discussed care with Palliative and Oncology Tele with ST 100s Physical Exam Constitutional: WD/WN, vitals as above Eyes: + anicteric sclerae Neck: trachea midline, no thyromegaly Respiratory: normal respiratory effort, lungs clear to auscultation Cardiovascular: Rate/Rhythm: regular rate and regular rhythm Heart Sounds: no murmur Extremities: + edema (1+ pitting edema legs bilat) Gastrointestinal (Abdomen): Inspection/Auscultation: + hypoactive bowel sounds; + abdomen abnormal to inspection (NGT in place) and abdomen not dis tended Percussion/Palpation: abdomen soft; abdomen nontender Musculoskeletal: Extremities: no cyanosis and no clubbing Skin: no rashes, warm and dry Neurologic: moves all extremities and awake; no focal motor deficits Psychiatric: Orientation: alert and oriented x 3 Affect: + depressed affect and + tearful affect Results & Data Results & Data Vital Signs (Past 12 Hours) Vital Signs Temp Pulse Pulse Resp BP Pulse Ox O2 Del Method 08/01/22 15:57 103 H 08/01/22 11:33 36.7 C 104 H 16 142/83 H 93 Room Air 08/01/22 08:40 Nasal Cannula 08/01/22 08:03 100 H 08/01/22 07:14 36.3 C L 86 16 133/84 90 Room Air O2 Flow Rate 08/01/22 15:57 08/01/22 11:33 08/01/22 08:40 2 08/01/22 08:03 08/01/22 07:14 Laboratory Results CBC,CMP, Blood cultures reviewed Ascites cytology path reviewed Diagnostic Findings KUB and CT CHest reviewed PG Care Time/CCT Total # of Minutes Spent Total Time Spent with Patient: Total time spent is greater than 50% in coordination of care (as documented) at patient's floor/unit and/or counseling patient: Coding Level of Care Code 88132 SUB INP/OBS CARE 3/50MIN Diagnoses SBO (small bowel obstruction) K56.609 Colon cancer C18.9 Colon location: unspecified part of colon Pulmonary metastases C78.01; C78.02 Laterality: bilateral Ascites R18.8 Demand ischemia of myocardium I24.8 Bacteremia R78.81 Hyponatremia E87.1 Peripheral edema R60.9 (2) Colon cancer Colon location: unspecified part of colon Qualified Code(s): C18.9 - Malignant neoplasm of colon, unspecified (3) Pulmonary metastases Laterality: bilateral Qualified Code(s): C78.01 - Secondary malignant neoplasm of right lung; C78.02 - Secondary malignant neoplasm of left lung
[2022-08-02] MEDS: PIPERACILLIN/TAZOBACTAM 4.5 GM in DEXTROSE 5% 100 ML IV SCH ×3 (01:35→20:15)
[2022-08-02] MEDS ORDERED: Nursing to Pharmacy Communication SCH (01:45)
[2022-08-02] MEDS: LACTATED RINGER'S 1,000 ML IV SCH ×2 (07:51→20:21)
--- NOTE | 2022-08-02 07:55 | XRay Report ---
XR KUB/Abdomen 1 view CLINICAL HISTORY: NG tube placement TECHNIQUE: 1 view of the abdomen was obtained. Comparison: Comparison is made to abdomen radiograph 08/01/2022 FINDINGS: Enteric tube tip and side-port lie below the diaphragm. Nodules are again partially seen. Degenerativ e changes are seen in the visualized skeleton. Multiple gas-distended loops of small bowel are seen c ompatible with obstruction. IMPRESSION: 1. Satisfactory position of enteric tube. 2. Redemonstration of innumerable pulmonary nodules. 3. Redemonstration of small bowel obstruction. ACT 112: Negative or not required by law. Electronically signed by: Robby Fernandez M.D. 08/02/2022 7:53 AM
[2022-08-02 08:01] LABS: Hematocrit (blood only) 35.6 % (42.0-52.0); Hemoglobin 11.5 g/dl (14.0-18.0); Mean Corpuscular Hemoglobin 28.9 pg (25.0-34.0); Mean Corpuscular Hgb Conc 32.3 g/dL (32.0-36.0); Mean Corpuscular Volume 89.4 fL (80.0-100.0); Mean Platelet Volume 9.5 fL (9.4-12.4); Platelet Count 417 K/uL (130-400); RDW Coefficient of Variation 13.2 % (11.5-14.5); RDW Standard Deviation 43.1 fL (36.4-46.3); Red Blood Count 3.98 M/uL (4.70-6.10); White Blood Count 22.12 K/ul (4.8-10.8)
[2022-08-02 08:23] LABS: Albumin Globulin Ratio 0.9 (0.9-2); Albumin Level 2.5 gm/dl (3.4-5.0); Basophils # (auto) 0.04 K/uL (0-0.2); Basophils % (auto) 0.2 %; Bilirubin,Total 0.5 mg/dl (0.2-1.0); Calcium 8.1 mg/dl (8.6-10.3); Creatinine Clr Calc Pharmacy 92.3 ml/min; Est GFR (African American) 108.3 ml/min; Est GFR (Non-African American) 93.5 ml/min; Globulin 2.9 gm/dl (2.5-4.0); Immature Granulocytes # (auto) 0.17 K/uL (0.01-0.20); Immature Granulocytes % (auto) 0.8 %; Lymphocytes # (auto) 0.59 K/uL (1.2-3.4); Lymphocytes % (auto) 2.7 %; Magnesium 2.2 mg/dl (1.7-2.4); Monocytes # (auto) 1.03 K/uL (0.11-0.59); Monocytes % (auto) 4.7 %; Neutrophils # (auto) 20.29 K/uL (1.40-6.50); Neutrophils % (auto) 91.6 %; Phosphorus 3.4 mg/dl (2.5-4.9); Potassium 3.6 mmol/L (3.5-5.1); Total Protein 5.4 gm/dl (6.0-8.3)
--- NOTE | 2022-08-02 09:04 | Anesthesiology Consultation ---
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 Surgery Operation Date: 08/02/22 11:30 Proposed Procedures p Possible Ileostomy - Reese Domingo DO Height/Weight Height: 5 ft 10 in Weight: 71.7 kg Allergies Allergy/AdvReac Type Severity Reaction Status Date / Time No Known Allergies Allergy Unverified 07/30/22 19:24 Medications Home Medications Medication Instructions Recorded Confirmed Last Taken naproxen sodium 220 mg tablet 220 mg PO BID PRN Pain 07/30/22 07/30/22 Unknown (Aleve) Active Medications Generic Name Dose Route Start Last Admin Trade Name Freq PRN Reason Stop Dose Admin Enoxaparin Sodium 40 mg 07/30/22 21:30 07/31/22 21:40 Enoxaparin Inj 40 Mg/0.4 Ml Syr SQ 08/29/22 21:29 40 mg Q24H DWAYNE Administration Lactated Ringer's 1,000 mls @ 80 mls/hr 07/30/22 21:10 08/02/22 07:51 Lr IV 08/29/22 21:09 80 mls/hr .[id number] DWAYNE Administration Piperacillin Sod/Tazobactam 120 mls @ 30 mls/hr 07/31/22 02:30 08/02/22 05:35 Sod 4.5 gm/ Dextrose IV 08/10/22 02:29 Infused Q8H DWAYNE Infusion Protocol Past Medical History Medical History Abdominal pain, generalized Advanced care planning/counseling discussion Cancer related pain Palliative care by specialist Social History Smoking Status: Former smoker Hx Alcohol Use: Yes Hx Substance Use: No Physical Exam Vital Signs Last Vital Signs Temp 97.7 F 08/02/22 08:48 Pulse 91 H 08/02/22 08:48 Resp 18 08/02/22 08:48 BP 119/77 08/02/22 08:48 Pulse Ox 91 08/02/22 08:48 O2 Del Method Nasal Cannula 08/02/22 08:48 O2 Flow Rate 2 08/02/22 03:43 Testing Laboratory Results 08/02/22 07:25 08/02/22 07:25 PT 10.9 Seconds (9.0-12.0) 07/30/22 14:15 INR 1.0 (0.9-1.1) 07/30/22 14:15 APTT 25.9 Seconds (21.0-31.0) 07/30/22 17:20 Urine Color Dark Yellow 07/31/22 00:00 Urine Appearance Clear (Clear) 07/31/22 00:00 Urine pH 5.0 (4.5-7.5) 07/31/22 00:00 Ur Specific [place] > 1.045 (1.000-1.030) H 07/31/22 00:00 Urine Protein 1+ (Negative) H 07/31/22 00:00 Urine Glucose (UA) Negative (Negative) 07/31/22 00:00 Urine Ketones 1+ (Negative) H 07/31/22 00:00 Urine Nitrite Negative (Negative) 07/31/22 00:00 Ur Leukocyte Esterase Negative (Negative) 07/31/22 00:00 Urine WBC (Auto) 1-5 /hpf (0-5) 07/31/22 00:00 Urine RBC (Auto) 0-4 /hpf (0-4) 07/31/22 00:00 U Hyaline Cast (Auto) 5-10 /lpf (0-5) H 07/31/22 00:00 U Epithel Cells (Auto) 10-20 /lpf (0-5) H 07/31/22 00:00 Urine Bacteria (Auto) Negative (Negative) 07/31/22 00:00 07/30/22 17:25 Aerobic Blood Culture - Preliminary Blood Staphylococcus aureus Anaerobic Blood Culture - Preliminary Gram positive cocci clusters 07/30/22 17:25 Aerobic Blood Culture - Preliminary Blood No growth in Aerobic bottle after 48 hours. Anaerobic Blood Culture - Preliminary No growth in Anaerobic bottle after 48 hours. 07/31/22 14:59 Aerobic Blood Culture - Preliminary Blood No growth in Aerobic bottle after 24 hours. Anaerobic Blood Culture - Preliminary No growth in Anaerobic bottle after 24 hours. 07/31/22 14:59 Aerobic Blood Culture - Preliminary Blood No growth in Aerobic bottle after 24 hours. Anaerobic Blood Culture - Preliminary No growth in Anaerobic bottle after 24 hours. 07/31/22 Unknown Gram Stain - Final Peritoneal Fluid Aerobic and Anaerobic Culture - Preliminary No growth to date. Electrocardiogram Date: 07/30/22 Sinus tachycardia, rate 108 bpm Cannot rule out Anterior infarct , age undetermined Abnormal ECG No previous ECGs available Confirmed by Rodriguez De La Cruz ([id number]) on 07/30/2022 3:22:39 PM Chest X-Ray Date: 07/30/22 FINDINGS: Extensive innumerable predominantly subcentimeter nodules throughout all lung valentino. No pneumothorax. Mild blunting of the costophrenic angles suggestive of atelectasis. Mild right hemidiaphragmatic elevation. The bones appear grossly intact. IMPRESSION: Extensive pulmonary metastasis. Please refer to the CT abdomen and pelvis of same day for additional findings. Echocardiogram Date: 07/31/22 LV systolic function is normal No regional wall motion abnormalities noted Mild concentric LVH EF 65-70% No significant valvular pathology
--- NOTE | 2022-08-02 09:39 | Hematology/Oncology Prog Note ---
Date of Service August 02, 2022 Assessment & Plan (1) Colon cancer: (2) Peritoneal carcinomatosis: (3) Pulmonary metastases: (4) Ascites: Plan Pleasant 62-year-old gentleman recently diagnosed with widely metastatic colon cancer. Cytology from recently drained ascitic fluid confirmed metastatic colon cancer. Neotype tumor analysis is pending at this time. He is scheduled for possible ileostomy and Mediport placement today. -I had an extensive discussion today with the patient, his 3 sisters and brother regarding his diagnosis of stage IV colon cancer. Discussed treatment options including IV chemotherapy consisting of FOLFOX in addition to monoclonal antibody depending on neotype molecular analysis. Also discussed option of supportive care. Patient indicated that he would like to receive systemic therapy. He will require Mediport for Chemotherapy which is being placed today. I will schedule him for follow-up at [facility] in about 1 to 2 weeks to start systemic therapy. Admission and Anticipated Discharge Date Admission Date: July 30, 2022 Subjective Denies any new complaints. Scheduled for possible ileostomy and mediport placement today. CT chest obtained yesterday revealed extensive/diffuse pulmonary metastatic disease as well as Mediastinal and hilar lymphadenopathy is likely metastatic. Cytology from ascitic fluid confirmed metastatic colon cancer Results & Data Vital Signs (Past 12 Hours) Vital Signs Temp Pulse Pulse Resp BP Pulse Ox O2 Del Method 08/02/22 08:48 36.5 C 91 H 18 119/77 91 Nasal Cannula 08/02/22 03:43 36.3 C L 106 H 18 131/88 90 Nasal Cannula 08/01/22 22:11 94 H 08/01/22 23:28 36.6 C 99 H 16 124/82 90 Nasal Cannula O2 Flow Rate 08/02/22 08:48 08/02/22 03:43 2 08/01/22 22:11 08/01/22 23:28 2 (1) Colon cancer Colon location: unspecified part of colon Qualified Code(s): C18.9 - Malignant neoplasm of colon, unspecified (3) Pulmonary metastases Laterality: bilateral Qualified Code(s): C78.01 - Secondary malignant neoplasm of right lung; C78.02 - Secondary malignant neoplasm of left lung
--- NOTE | 2022-08-02 13:16 | Communication Note ---
Date of Service: August 02, 2022 Palliative Med Brief Note patient for OR today Oncology met w/pt and family, reviewed path and reccs for possible chemo which will be PS dependent. Patient agreeable for chemo if eligible and would like to pursue a more aggressive plan of care. I was notified by teams that family wanted a meeting with me however they then subsequently met with surgery and oncology and wished to defer meeting me until tomorrow due to mutual time constraints and availability. Pt not seen/no rajanige submitted. Thank you for allowing us to participate in the ongoing care of this patient. Please don't hesitate to call or page with any additional concerns. Dr. Mana Ritter DNP Director, Palliative Care
--- NOTE | 2022-08-02 14:18 | Surgery Progress Note ---
Date of Service August 02, 2022 Assessment & Plan (1) SBO (small bowel obstruction): Plan: Patient seems now with a partial small bowel obstruction as he says he is passing flatus. Plan is for a diverting loop ileostomy today to avoid complete obstruction and give the patient an opportunity to improve his nutrition in anticipation for cancer treatment. Also plan for Medi port insertion today as the patient has had a consultation with medical oncology where they have agreed on CTX. The procedures will be performed by Dr. Ramon and myself. The details of these procedures have been explained to the patient including the risks and benefits. He expressed understanding of this explanation and all of his questions were answered. Consent was obtained. Admission and Anticipated Discharge Date Admission Date: July 30, 2022 Subjective Mr. Puckett was seen this am. He says he continues to pass flatus and had a bowel movement. He denies nausea/vomiting, NGT in place. Physical Exam Constitutional: + ill appearing and + cachectic; + not well nourished, no acute distress and + not appropriately hydrated Respiratory: no respiratory distress, no labored breathing and does not use accessory muscles Auscultation: no wheezes Gastrointestinal (Abdomen): Inspection/Auscultation: + abdomen distended Percussion/Palpation: abdomen soft; abdomen nontender, no guarding and abdomen not rigid NGT with dark tinged fluid. Still draining copious amounts Results & Data Vital Signs (Past 12 Hours) Vital Signs Temp Pulse Resp BP Pulse Ox O2 Del Method O2 Flow Rate 08/02/22 12:21 36.3 C L 105 H 18 117/79 90 Nasal Cannula 2 08/02/22 11:58 Nasal Cannula 2 08/02/22 08:48 36.5 C 91 H 18 119/77 91 Nasal Cannula 08/02/22 03:43 36.3 C L 106 H 18 131/88 90 Nasal Cannula 2 PG Care Time/CCT Total # of Minutes Spent Total Time Spent with Patient: Total time spent is greater than 50% in coordination of care (as documented) at patient's floor/unit and/or counseling patient: Coding Level of Care Code 47724 SUB INP/OBS CARE 2/35MIN Diagnoses SBO (small bowel obstruction) K56.609
--- NOTE | 2022-08-02 14:42 | Hospitalist Progress Note ---
Date of Service August 02, 2022 Assessment & Plan (1) SBO (small bowel obstruction): Plan: Redd Puckett is a 62-year-old male with no known past medical history and no PCP (has not seen or needed a doctor since childhood) who p/w abdominal pain and swelling. Found to have metastatic colon cancer with subsequent SBO. Narrowing of the ileocecal valve with resultant upstream small bowel obstruction secondary to soft tissue prominence within the cecum and ileocecal valve suggestive of primary mucosal colonic malignancy -is passing some flatus and a BM on 08/01 but KUB shows persistent SBO; NGT still with a lot of output General surgery consult placed- plan for diverting ileostomy 08/02 continue NG tube to LIS cont n.p.o. continue IV fluids, watch lytes and replace as needed continue Zosyn for now given leukocytosis, elevated procal, and bacteremia as below (which is likely skin contaminant), but can likely discontinue ZOsyn on 08/03 As needed antiemetics and analgesics -follow CBC, CMP, Magnesium, phos in AM -Leukocytosis likely reactive to metastatic disease and less likely from infection (2) Colon cancer: Plan: Metastatic colon cancer with Secondary malignant neoplasm of liver and lungs, with carcinomatosis CEA elevated at 70 LFTs elevated from liver mets CT Chest with extensive metastatic pulm disease Ascites cytology confirms adenocarcinoma of the colon and there is enough tissue to do the rest of the testing oncology needs New diagnosis -- patient had never had screening colonoscopy performed Soft tissue prominence within the cecum and ileocecal valve 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, liver, omentum, peritoneum (see CT results for details) consult oncology appreciated-plan for port and palliative chemo most likely now that final path available - needs port placed concurrently-does have Staph epi and MSSA in 1/4 BCxs which is a skin contaminant and repeat blood cultures negative over 48 hrs, no fevers or sepsis -will need ostomy education (3) Pulmonary metastases: Plan: with acute respiratory failure with hypoxia-POx 88% on RA, now requiring 2LNC CT CHest with innumerable mets likely from colon CA monitor for need for continued O2 (4) Ascites: Plan: 2/2 metastatic disease paracentesis performed and 6L removed on admission Gram stain/cx no growth, cytology with adenocarcinoma of colon (5) Demand ischemia of myocardium: Plan: trop mildly elevated at 31 and down to 28 on repeat check ECG with old anterior infarct With LE edema on exam which is likely related to ascites and peritoneal carcinomatosis, checked ECHO for EF and for WMAs -normal continue tele monitoring-sinus tach likely reactive to widely metastatic disease (6) Bacteremia: Plan: 1/4 bottles with Staph epidermidis and MSSA likely skin contaminant given 2 different organisms in same bottle, only 1/4 bottles, and repeat BCxs 1 day later are negative. He has no indwelling hardware or valvular disease Remains on ZOsyn for gut coverage given leukocytosis, however most likely can dc abx POD#1 after surgery Not a true bacteremia ok to place port with surgery today (7) Hyponatremia: Plan: Na+ 131 on admission and now up to 142 after paracentesis and hydration Ur Na 23 and Ur Osmol 923 consistent with hypovolemia follow BMP continue LR while NPO (8) Peripheral edema: Plan: likely 2/2 abdominal mets, hypoalbuminemia from cancer Dopplers venous LEs bilat negative ECHO normal follow Plan DVT proph-Lovenox SQ but hold for surgery Dispo-continued stay on tele, likely needs at least 2-3 days for post-op recovery. Pt plans to go home nad will need home health and close f/u with Oncology after discharge Care discussed with Palliative nd Surgery As per Palliative discussion with pt, he was made a DNR, however pt told Surgery he wanted to be a full code--> CODE STATUS CHANGED TO FULL again on 08/02 but there will be a Palliative meeting with pt and his siblings at 1000 on 08/03 Admission and Anticipated Discharge Date Admission Date: July 30, 2022 Subjective Pt denies pain in abdomen. Is awaiting surgery. He told the SUrgeon he wanted "everything done" as far as code status so he was changed back to a full code today before surgery. Tele with NSR and ST rates 90-110s Physical Exam Constitutional: WD/WN, vitals as above Eyes: + anicteric sclerae Neck: trachea midline, no thyromegaly Respiratory: normal respiratory effort, lungs clear to auscultation Cardiovascular: Rate/Rhythm: regular rate and regular rhythm Heart Sounds: no murmur Extremities: + edema (1-2+ pitting edema legs bilat) Gastrointestinal (Abdomen): Inspection/Auscultation: + hypoactive bowel sounds; + abdomen abnormal to inspection (NGT in place) and abdomen not distended Percussion/Palpation: abdomen soft; abdomen nontender Musculoskeletal: Extremities: no cyanosis and no clubbing Skin: no rashes, warm and dry Neurologic: moves all extremities and awake; no focal motor deficits Psychiatric: Orientation: alert and oriented x 3 Affect: + depressed affect Results & Data Results & Data Vital Signs (Past 12 Hours) Vital Signs Temp Pulse Resp BP Pulse Ox O2 Del Method O2 Flow Rate 08/02/22 12:21 36.3 C L 105 H 18 117/79 90 Nasal Cannula 2 08/02/22 11:58 Nasal Cannula 2 08/02/22 08:48 36.5 C 91 H 18 119/77 91 Nasal Cannula 08/02/22 03:43 36.3 C L 106 H 18 131/88 90 Nasal Cannula 2 Laboratory Results CBC,BMP,LFTs, BCxs reviewed PG Care Time/CCT Total # of Minutes Spent Total Time Spent with Patient: Total time spent is greater than 50% in coordination of care (as documented) at patient's floor/unit and/or counseling patient: Coding Level of Care Code 02754 SUB INP/OBS CARE 3/50MIN Diagnoses SBO (small bowel obstruction) K56.609 Colon cancer C18.9 Colon location: unspecified part of colon Pulmonary metastases C78.01; C78.02 Laterality: bilateral Ascites R18.8 Demand ischemia of myocardium I24.8 Bacteremia R78.81 Hyponatremia E87.1 Peripheral edema R60.9 (2) Colon cancer Colon location: unspecified part of colon Qualified Code(s): C18.9 - Malignant neoplasm of colon, unspecified (3) Pulmonary metastases Laterality: bilateral Qualified Code(s): C78.01 - Secondary malignant neoplasm of right lung; C78.02 - Secondary malignant neoplasm of left lung
[2022-08-02] MEDS ORDERED: fentaNYL citrate PF 100 MCG/2 ML VIAL IV PRN (14:59)
[2022-08-02] MEDS ORDERED: ePHEDrine sulfate 50 MG/ML AMP IV PRN (14:59)
[2022-08-02] MEDS ORDERED: ATROPINE SULFATE 0.1 MG/ML 10ML SYR IV PRN (14:59)
[2022-08-02] MEDS ORDERED: HYDROmorphone INJ 1 MG/ML SYRINGE IV PRN (14:59)
[2022-08-02] MEDS ORDERED: ONDANSETRON INJ 2 MG/ML 2 ML VIAL IV PRN (14:59)
[2022-08-02] MEDS ORDERED: LIDOCAINE 1% LOCAL 20 ML VIAL ONE (15:04)
[2022-08-02] MEDS ORDERED: HEPARIN 100 UNIT/ML 5ML FLUSH ONE (15:05)
[2022-08-02] MEDS ORDERED: DEXAMETHASONE SOD INJ 4 MG/ML VIAL ONE (15:16)
[2022-08-02] MEDS ORDERED: MIDAZOLAM HCL 1 MG/ML 2ML VIAL ONE (15:16)
[2022-08-02] MEDS ORDERED: GLYCOPYRROLATE 0.2 MG/ML VIAL ONE (15:16)
[2022-08-02] MEDS ORDERED: PROPOFOL IV EMULSION 10 MG/ML 20 ML VIAL IV ONE (15:16)
[2022-08-02] MEDS ORDERED: fentaNYL citrate PF 100 MCG/2 ML VIAL ONE ×2 (15:16→18:12)
[2022-08-02] MEDS ORDERED: ONDANSETRON INJ 2 MG/ML 2 ML VIAL ONE (15:16)
[2022-08-02] MEDS ORDERED: NEOSTIGMINE METHYLSULFATE 1 MG/ML 10ML VIAL ONE (15:16)
[2022-08-02] MEDS ORDERED: LIDOCAINE 2% MPF LOCAL 5 ML VIAL ONE (15:18)
[2022-08-02] MEDS ORDERED: ROCURONIUM BROMIDE 10 MG/ML 5 ML VIAL IV ONE (15:18)
[2022-08-02] MEDS ORDERED: SUCCINYLCHOLINE CHLORIDE 20 MG/ML 10 ML VIAL IV ONE (15:18)
[2022-08-02] MEDS ORDERED: BUPIVACAINE/EPINEPHRINE 0.5% MPF 1:200,000 30 ML VIAL ONE (15:50)
--- NOTE | 2022-08-02 15:52 | Surgery Consultation ---
Date of Consultation August 02, 2022 Assessment & Plan (1) Peritoneal carcinomatosis: Plan Discussed with the patient port placement including indications and possible complications such as pneumothorax and the patient would like to proceed accordingly The permit was signed History of Present Illness Attending Physician: Ingrid Wolf MD History of Present Illness Abdominal carcinomatosis ascites bowel obstruction recently diagnosed No previous abdominal surgery Not seen by physician for a while Today the patient is to undergo ileostomy to relieve what appears to be obstruction with colonic mass at the ileocecal valve this will be done by Dr. Alexey Guerrero I was asked to place a port in anticipation of chemotherapy Allergies Allergy/AdvReac Type Severity Reaction Status Date / Time No Known Allergies Allergy Unverified 07/30/22 19:24 Home Medications Medication Instructions Recorded Confirmed Type naproxen sodium 220 mg tablet 220 mg PO BID PRN Pain 07/30/22 07/30/22 History (Aleve) Patient History Medical History Abdominal pain, generalized Advanced care planning/counseling discussion Cancer related pain Palliative care by specialist Social History Smoking Status: Former smoker Hx Alcohol Use: Yes Hx Substance Use: No Communication Ability: Effective Clothespin Machine Operator Required: No Beliefs That Will Affect Care: Spiritual Current Living Situation: Alone Feels Safe at Home: Yes Assistive Devices: None Physical Exam Physical Exam: Patient alert coherent NG tube in place No cervical supraclavicular lymphadenopathy but significant wasting noted in the upper thoracic area The abdomen is distended nontender Results & Data Vital Signs (Past 12 Hours) Vital Signs Temp Pulse Resp BP BP Pulse Ox O2 Del Method 08/02/22 14:43 36.8 C 92 H 18 126/83 90 Nasal Cannula 08/02/22 12:21 36.3 C L 105 H 18 117/79 90 Nasal Cannula 08/02/22 11:58 Nasal Cannula 08/02/22 08:48 36.5 C 91 H 18 119/77 91 Nasal Cannula O2 Flow Rate 08/02/22 14:43 4 08/02/22 12:21 2 08/02/22 11:58 2 08/02/22 08:48 PG Care Time/CCT Total # of Minutes Spent Total Time Spent with Patient: Total time spent is greater than 50% in coordination of care (as documented) at patient's floor/unit and/or counseling patient: Coding Level of Care Code 44566 IN/OBS CONSULT LVL 2,35M Diagnoses Peritoneal carcinomatosis C78.6
[2022-08-02] MEDS ORDERED: ALBUMIN HUMAN 5% 12.5 GM/250 ML VIAL IV ONE (16:08)
[2022-08-02] MEDS ORDERED: SUGAMMADEX SODIUM 200 MG/2 ML VIAL IV ONE (18:57)
--- NOTE | 2022-08-02 19:21 | Post Operative Brief Note ---
PG Immediate Post Op with CF Date of Surgery August 02, 2022 Pre & Post Diagnosis Operation Date: 08/02/22 11:30 Pre-Op Diagnosis: Ileocecal mass, Peritoneal carcinomatosis, and small bowel obstruction Post-Op Diagnosis: Ileocecal mass, Peritoneal carcinomatosis, and small bowel obstruction I identified the patient and participated in the time-out.: Yes Procedure Operation Date: 08/02/22 11:30 Actual Procedures p Laparoscopic Loop Ilieostomy(Not Applicable) - Reese Domingo DO s Infusaport Insertion(Left) - Arie Ramon MD, FACS Surgeon Reese Domingo DO Audio Visual Facilities Engineer Dr. Ramon Estimated Blood Loss 10 Findings Consistent with Post-Op Diagnosis carcinomatosis, multiple seeding implants across the small bowel and liver. Obstruction involving small bowel immediate proxinal to the cecum. Copious ascites. Specimens Specimen Description: Culture 1. Urine for culture 2. Peritoneal fluid for culture Drains Wise Catheter
--- NOTE | 2022-08-02 19:46 | Operative Report ---
PG Post Operative Report Pre & Post Diagnosis Operation Date: 08/02/22 11:30 Pre-Op Diagnosis: Ileocecal mass, Peritoneal carcinomatosis, and small bowel obstruction Post-Op Diagnosis: Ileocecal mass, Peritoneal carcinomatosis, and small bowel obstruction I identified the patient and participated in the time-out.: Yes Procedure Operation Date: 08/02/22 11:30 Actual Procedures p Laparoscopic Loop Ilieostomy(Not Applicable) - Reese Domingo DO s Infusaport Insertion(Left) - Arie Ramon MD, FACS Surgeon Dr. Ceferino Ramon Cleaning Laborer Dr. Domingo Estimated Blood Loss 5 Findings Consistent with Post-Op Diagnosis Specimens None Anesthesia Type General Indications Newly diagnosed metastatic cancer Description of Procedure The patient was brought back to the operating room and placed on the operating room table in supine position. The anterior thorax and abdomen were prepped and draped in typical sterile fashion. A time out was conducted. An 18-gauge needle was used to access the left subclavian vein and a guidewire was inserted. The needle was removed. Using fluoroscopy the guidewire positioning was confirmed to be appropriately placed terminating in the inferior vena cava. An incision was made 3 cm inferior to the needle wire insertion site and local anesthetic was injected into the skin. An incision was made wide enough to accept the Medi-Port. Finger dissection was used to create a pocket for the port. Hemostasis was kept throughout this process using cautery. The subcutaneous tissue was dissected using a hemostat superiorly to connect the site for the port pocket to the wire insertion site. Once the wire was identified the wire was fed into the port pocket and wound site. The sheath dilator complex was inserted over the guidewire using Seldinger technique. Fluoroscopy was used to confirm sheath positioning. The sheath and dilator were removed. The catheter was then inserted into the sheath and fluoroscopy was again used to confirm the termination point of the catheter. The catheter was at 25 cm and the port was connected to the catheter and snugly locked in place with a locking cap. The port was inserted into the subcutaneous pocket, aspirated and flushed. The soft and subcutaneous tissues were closed around the port and proximal catheter. The port was aspirated and flushed again. A second layer of deep dermal sutures were placed. The area was cleaned with a saline soaked lap pad and dried. Steri strips were applied to the wound. A post operative CXR will be performed in recovery. I attest to the content of the Intraoperative Record and any orders documented therein. Any exceptions are noted below.
--- NOTE | 2022-08-02 19:54 | XRay Report ---
XR chest 1V portable HISTORY: post op port placement COMPARISON: Chest 07/10/2022. FINDINGS: Interval placement of a left subclavian Port-A-Cath which terminates in the expected locati on of the SVC. Nasogastric tube terminates in the stomach. No pneumothorax. Trace bilateral pleural e ffusions again noted. Extensive pulmonary metastatic disease again noted. IMPRESSION: 1. Interval placement of a left subclavian Port-A-Cath which terminates at the SVC. No pneumothorax. 2. Extensive pulmonary metastatic disease again noted. ACT 112: Negative or not required by law. Electronically signed by: Alex Boland M.D. 08/02/2022 7:52 PM
[2022-08-02] MEDS: MoRPHine SULFATE 4 MG/ML 1 ML CARP\\VIAL IV PRN (20:16)
--- NOTE | 2022-08-02 20:40 | Operative Report ---
PG Post Operative Report Pre & Post Diagnosis Operation Date: 08/02/22 11:30 Pre-Op Diagnosis: Ileocecal mass, Peritoneal carcinomatosis, and small bowel obstruction Post-Op Diagnosis: Ileocecal mass, Peritoneal carcinomatosis, and small bowel obstruction I identified the patient and participated in the time-out.: Yes Procedure Operation Date: 08/02/22 11:30 Actual Procedures p Laparoscopic Loop Ilieostomy(Not Applicable) - Reese Domingo DO s Infusaport Insertion(Left) - Arie Ramon MD, FACS Surgeon Reese Domingo DO Outside Maintenance Worker Dr. Ramon Estimated Blood Loss 10 Findings Consistent with Post-Op Diagnosis Specimens None Description of Procedure The patient was placed on the operating room table in supine position after a timeout was conducted and a left subclavian vein port insertion was performed, attention was turned to the abdomen to perform the loop ileostomy. A small stab incision was made just superficial to the umbilicus. A Veress needle was used to access the intra-abdominal space and CO2 insufflation was initiated to a goal pressure of 15 mmHg. A 5 mm trocar was inserted with direct visualization. Immediately upon visualizing the intra-abdominal space a copious amount of ascites was noted in the right upper quadrant as well as diffuse carcinomatosis covering the dilated small bowel and liver. A large metastatic implant was noted on the anterior surface of the liver. 2 additional 5 mm trocars were inserted at the left lower and left upper quadrant. Graspers were used to mobilize the small bowel. The cecum was identified there was a copious amount of ascites in the paracolic gutter. Ascitic fluid was aspirated and sent for culture. Additional fluid was aspirated to improve visualization. A small band was lysed connected small bowel to the pelvis but this did not appear to be obstructive. Once the cecum was revisualize the small bowel was again mobilized to identify the terminal ileum. The terminal ileum near the cecum was immobile and tethered. This was presumed to be the site of the mass and secondary desmoplastic reaction all causing the obstruction. The bowel was followed proximally and the nearest portion that was readily mobile was secured with a grasper. A circular area of skin was excised at the right lower quadrant and the subcutaneous tissue was dissected to the anterior sheath. A cruciate incision was made and the muscles were spread. The posterior sheath and peritoneum was entered. The portion of the small bowel that was chosen for the ileostomy was grasped with a Edwin clamp, the grasper was released and pulled through this wound. The laparoscope was re-inserted to double check the orientation of the small bowel to the ileostomy site. The bowel was not twisted. The laparoscope and trocars were removed, excess CO2 was evacuated. A bridge was placed and secured with 2-0 silk sutures. The ileostomy was matured in a Bebe fashion using chromic sutures. The small bowel was viable and healthy. The proximal and distal aspects of the ileostomy were digitized. Both directions were patent. An ostomy appliance was applied. The procedure tolerated the procedures well. He was awakened from anesthesia, and transferred to recovery in stable condition. A CXR will be done in recovery for port placement. I attest to the content of the Intraoperative Record and any orders documented therein. Any exceptions are noted below.
--- NOTE | 2022-08-02 20:46 | Anesthesiology Progress Note ---
Date of Service August 02, 2022 Anesthesia Post Procedure Vital Signs Vital Signs: Temp Pulse Pulse Resp BP BP Pulse Ox 08/02/22 19:40 98 H 18 131/92 93 08/02/22 19:30 97 H 18 126/93 93 08/02/22 19:20 101 H 17 138/100 95 08/02/22 19:14 36 C L 104 H 14 152/97 H 92 08/02/22 14:43 36.8 C 92 H 18 126/83 90 08/02/22 12:21 36.3 C L 105 H 18 117/79 90 08/02/22 11:58 08/02/22 08:48 36.5 C 91 H 18 119/77 91 08/02/22 03:43 36.3 C L 106 H 18 131/88 90 08/01/22 22:11 94 H 08/01/22 23:28 36.6 C 99 H 16 124/82 90 O2 Del Method O2 Flow Rate 08/02/22 19:40 Oxymask 5 08/02/22 19:30 Oxymask 8 08/02/22 19:20 Oxymask 10 08/02/22 19:14 Oxymask 10 08/02/22 14:43 Nasal Cannula 4 08/02/22 12:21 Nasal Cannula 2 08/02/22 11:58 Nasal Cannula 2 08/02/22 08:48 Nasal Cannula 08/02/22 03:43 Nasal Cannula 2 08/01/22 22:11 08/01/22 23:28 Nasal Cannula 2 Pain Intensity Abdomen: Pain Intensity: 4 Transfer of Care Handoff Completed per policy Notes Mental Status: alert / awake / arousable and participated in evaluation Patient Amnestic to Procedure: Yes Nausea / Vomiting: adequately controlled Pain: adequately controlled Airway Patency, RR, SpO2: stable & adequate BP & HR: stable & adequate Hydration State: stable & adequate Anesthetic Complications: no major complications apparent
[2022-08-03] MEDS: PIPERACILLIN/TAZOBACTAM 4.5 GM in DEXTROSE 5% 100 ML IV SCH ×3 (03:59→18:15)
[2022-08-03 04:58] LABS: Hematocrit (blood only) 36.3 % (42.0-52.0); Hemoglobin 11.5 g/dl (14.0-18.0); Mean Corpuscular Hemoglobin 29.1 pg (25.0-34.0); Mean Corpuscular Hgb Conc 31.7 g/dL (32.0-36.0); Mean Corpuscular Volume 91.9 fL (80.0-100.0); Mean Platelet Volume 9.7 fL (9.4-12.4); Platelet Count 362 K/uL (130-400); RDW Coefficient of Variation 13.4 % (11.5-14.5); RDW Standard Deviation 44.5 fL (36.4-46.3); Red Blood Count 3.95 M/uL (4.70-6.10); White Blood Count 23.03 K/ul (4.8-10.8)
[2022-08-03 05:12] LABS: Albumin Globulin Ratio 0.9 (0.9-2); Albumin Level 2.4 gm/dl (3.4-5.0); BUN Creatinine Ratio 23.7 (10-20); Bilirubin,Total 0.5 mg/dl (0.2-1.0); Calcium 7.9 mg/dl (8.6-10.3); Est GFR (African American) 95.2 ml/min; Est GFR (Non-African American) 82.2 ml/min; Globulin 2.7 gm/dl (2.5-4.0); Magnesium 2.2 mg/dl (1.7-2.4); Phosphorus 4.1 mg/dl (2.5-4.9); Potassium 3.8 mmol/L (3.5-5.1); Total Protein 5.1 gm/dl (6.0-8.3)
[2022-08-03] MEDS: MoRPHine SULFATE 2 MG/ML CARP IV PRN (05:25)
[2022-08-03 05:29] LABS: Basophils # (auto) 0.03 K/uL (0-0.2); Basophils % (auto) 0.1 %; Echinocytes 1+; Immature Granulocytes # (auto) 0.16 K/uL (0.01-0.20); Immature Granulocytes % (auto) 0.7 %; Lymphocytes # (auto) 0.69 K/uL (1.2-3.4); Monocytes # (auto) 0.92 K/uL (0.11-0.59); Neutrophils # (auto) 21.23 K/uL (1.40-6.50); Neutrophils % (auto) 92.2 %
[2022-08-03] MEDS: LACTATED RINGER'S 1,000 ML IV SCH ×2 (08:24→21:19)
--- NOTE | 2022-08-03 09:03 | Hospitalist Progress Note ---
Date of Service August 03, 2022 Assessment & Plan (1) SBO (small bowel obstruction): Plan: 62-year-old male with no known past medical history and no PCP (has not seen or needed a doctor since childhood) who p/w abdominal pain and swelling and was found to have metastatic colon cancer with subsequent SBO. Narrowing of the ileocecal valve with resultant upstream small bowel obstruction secondary to soft tissue prominence within the cecum and ileocecal valve suggestive of primary mucosal colonic malignancy General surgery consulted: s/p diverting ileostomy 08/02 Cont n.p.o. per surgery, eval daily for ability to tolerate PO intake Continue IV fluids, electrolytes normal no repletion needed today Continue Zosyn for now given leukocytosis, elevated procal, and bacteremia as below (which is likely skin contaminant), but can likely discontinue Zosyn on 08/04 As needed antiemetics and analgesics -Follow CBC, CMP, Magnesium, phos in AM -Leukocytosis likely reactive to metastatic disease and less likely from infection (2) Colon cancer: Plan: Metastatic colon cancer with Secondary malignant neoplasm of liver and lungs, with carcinomatosis CEA elevated at 70 LFTs elevated from liver mets CT Chest with extensive metastatic pulm disease Ascites cytology confirms adenocarcinoma of the colon, with full path pending and Oncology consulted, will see patient again tomorrow Cancer is new diagnosis -- patient had never had screening colonoscopy performed Soft tissue prominence within the cecum and ileocecal valve 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, liver, omentum, peritoneum Consult oncology appreciated-plan for port and palliative chemo most likely now that final path available Did have Staph epi and MSSA in 1/ BCxs which is a skin contaminant and repeat blood cultures negative over 48 hrs, no fevers or sepsis PT and OT when able to eval for dispo planning (3) Pulmonary metastases: Plan: With acute respiratory failure with hypoxia- pulse ox such that patient requiring supplemental O2 up to 5L Oxymask, wean as able CT Chest with innumerable mets from colon cancer, no other acute pathology noted monitor for need for continued O2, and if to return home will need two step (4) Ascites: Plan: 2/2 metastatic disease paracentesis performed and 6L removed on admission, no worsening of abdominal distention today Gram stain/cx no growth (no SBP), cytology with adenocarcinoma of colon (5) Demand ischemia of myocardium: Plan: Trop mildly elevated at 31 and down to 28 on repeat check, and 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 He has no indwelling hardware or valvular disease Remains on Zosyn for gut coverage given leukocytosis, however most likely can dc abx tomorrow (7) Hyponatremia: Plan: Na+ 131 on admission and now up to 146 with IV hydration, continue to monitor Ur Na 23 and Ur Osmol 923 earlier this admission consistent with hypovolemia continue LR while NPO as able with fluid monitoring (8) Peripheral edema: Plan: likely 2/2 abdominal mets, hypoalbuminemia from cancer Dopplers venous LEs bilat negative ECHO normal Plan DVT proph-Discuss with Gen Surg given recent surgeries x2, high risk given metastatic disease and low mobility Dispo-continued stay on tele, likely needs at least 2-3 days for post-op recovery. Pt plans to go home if possible will need home health and close f/u with Oncology after discharge Care discussed with Palliative and Surgery Code Status being considered by patient, discussed that due to his metastatic disease he would have poor prognosis if CPR were needed, and this was also discussed separately by [facility]. Will revisit topic with patient tomorrow Admission and Anticipated Discharge Date Admission Date: July 30, 2022 Subjective Patient without worsening symptoms overnight, no SOB on 5L Oxymask. Denies abd pain, nausea, chest pain. Very fearful about his metastatic cancer diagnosis and having a lot of difficulty with processing the emotions around that diagnosis. Review of Systems Review of Systems: All systems reviewed & are unremarkable except as noted in Subjective Physical Exam Physical Exam: awake/alert, no distress Constitutional: + thin Respiratory: normal respiratory effort, lungs clear to auscultation wearing oxymask 5L, lungs rhonchorous Cardiovascular: RRR, no murmur, no edema Chest (Breasts): Additional Comments: mediport incision healing well no surrounding erythema Gastrointestinal (Abdomen): normal bowel sounds, soft, nontender, no hepatosplenomegaly Inspection/Auscultation: + abdominal surgical incision (c/d/i); abdomen not distended ostomy beefy red, healthy appearing Skin: no rashes, warm and dry Psychiatric: A+Ox3, euthymic affect Results & Data Results & Data Vital Signs (Past 12 Hours) Vital Signs Temp Pulse Pulse Resp BP Pulse Ox Pulse Ox 08/03/22 08:00 36.6 C 99 H 20 107/75 91 08/02/22 22:45 86 08/03/22 03:00 36.4 C L 107 H 18 117/83 91 08/02/22 23:00 92 08/02/22 22:28 36.5 C 90 16 104/82 92 O2 Del Method O2 Del Method O2 Flow Rate O2 Flow Rate 08/03/22 08:00 Oxymask 5 08/02/22 22:45 08/03/22 03:00 Oxymask 4 08/02/22 23:00 Oxymask 5 08/02/22 22:28 Oxymask 4 PG Care Time/CCT Total # of Minutes Spent Total Time Spent with Patient: Total time spent is greater than 50% in coordination of care (as documented) at patient's floor/unit and/or counseling patient: Coding Level of Care Code 48788 SUB INP/OBS CARE 3/50MIN Diagnoses SBO (small bowel obstruction) K56.609 Colon cancer C18.9 Colon location: unspecified part of colon Pulmonary metastases C78.01; C78.02 Laterality: bilateral Ascites R18.8 Demand ischemia of myocardium I24.8 Bacteremia R78.81 Hyponatremia E87.1 Peripheral edema R60.9 (2) Colon cancer Colon location: unspecified part of colon Qualified Code(s): C18.9 - Malignant neoplasm of colon, unspecified (3) Pulmonary metastases Laterality: bilateral Qualified Code(s): C78.01 - Secondary malignant neoplasm of right lung; C78.02 - Secondary malignant neoplasm of left lung
--- NOTE | 2022-08-03 12:44 | Surgery Progress Note ---
I saw and examined this patient with the surgical PA. I agree with the plan. Start protein supplements with meals as well. May advance diet as tolerated. Follow up on cultures from intra-abdominal ascites obtained in the OR. Date of Service August 03, 2022 Assessment & Plan (1) Colonic mass: Plan: POD#1 mediport insertion and diverting loop ileostomy WBC 23 (22), Hbg 11.5 (11.5). On oxymask, HR 90-100s. BP stable On exam patient's abdomen is soft, not overly tender, with ileostomy present with liquid brown/red stool in bag, + gas NGT 370 cc noted in canister Will plan to d/c NGT and start clears today Recommend OOB as tolerates, continue to work on pulmonary toilet (2) SBO (small bowel obstruction): Admission and Anticipated Discharge Date Admission Date: July 30, 2022 Subjective Patient feeling fairly well today. Has not been out of bed much yet, but states his pain has been controlled. Denies nausea/vomiting. Physical Exam Physical Exam: awake/alert, no distress Respiratory: wearing oxymask Chest (Breasts): Additional Comments: mediport incision healing well Gastrointestinal (Abdomen): Inspection/Auscultation: + abdominal surgical incision (c/d/i); abdomen not distended ostomy viable with thin red-brown fluid in bag Results & Data Vital Signs (Past 12 Hours) Vital Signs Temp Pulse Resp BP Pulse Ox O2 Del Method O2 Del Method 08/03/22 12:25 36.6 C 101 H 16 114/75 90 Oxymask 08/03/22 08:00 Oxymask 08/03/22 08:00 Oxymask 08/03/22 08:00 36.6 C 99 H 20 107/75 91 Oxymask 08/03/22 03:00 36.4 C L 107 H 18 117/83 91 Oxymask O2 Flow Rate O2 Flow Rate 08/03/22 12:25 5 08/03/22 08:00 5 08/03/22 08:00 5 08/03/22 08:00 5 08/03/22 03:00 4 PG Care Time/CCT Total # of Minutes Spent Total Time Spent with Patient: Total time spent is greater than 50% in coordination of care (as documented) at patient's floor/unit and/or counseling patient: Coding Level of Care Code 27113 Post Operative Follow-Up Diagnoses Colonic mass K63.89 SBO (small bowel obstruction) K56.609
--- NOTE | 2022-08-03 16:10 | Palliative Care Progress Note ---
Date of Service August 03, 2022 Assessment & Plan (1) Palliative care by specialist: Plan: Met with pt/family. Provided overview of Palliative Medicine, a subspecialty that provides specialized medical care for people living with a serious illness by offering a focus on quality of life. Palliative Medicine is often conflated with hospice: I advised patient/family that Palliative and hospice can be partners but we are not the same. It is important to understand the difference so that we may be informed, and not afraid. Palliative Medicine works to improve QOL through reduction of symptom burden/more control over their illness, for both the patient and family. Palliative medicine clinicians are board certified, specially-trained and another member of the patient's medical care team. We often provide an extra layer of support because our care is based on the needs of the patient, not the prognosis; as such, it's appropriate at any age/advancing stage of a serious illness and can be provided along with curative treatment. Palliative Medicine clinicians are also trained in advanced communication methodologies, to facilitate complex discussions about advanced illness planning, which are needed to help assure that the treatment choices match the patient's goals, aka delivering Goal Concordant care. We also reviewed there is strong evidence supporting the initiation of Palliative Care into the management of this patient with advanced met lung cancer; palliative care, when provided alongside oncologic care, leads to improved QOL, fewer depressive symptoms, better prognosis understanding and longer median survival anabell when given the overall poor prognosis and QOL issues at hand. (Taina et al. (2010). Early palliative care for patients with metastatic yho-rlogh-bszj lung cancer. [place] J of Med 3638), [phone]. Doi: 10.1056/[id number].) (2) Advanced care planning/counseling discussion: Plan: a 60 min face to face ACP discussion was held with pt and family at the bedside separate from the clinical progress visit. We reviewed that advance illness planning conversations are conducted to review goals and expectations, support shared decision-making, and engage in disease specific advance care planning. This type of advance care planning is sometimes referred to as 'preparedness planning. It is used to review the risks and benefits of offered therapy, elicit and deepen understanding of the underlying illness and therapeutic options, ensure adequate psychosocial support, address existential concerns and coping, and engage in end-of-life planning. Preparedness planning is not meant to replace informed consent discussions. Palliative medicine plays a role in the process of deepening a patients understanding of this specific medical intervention and ensuring this treatment aligns with their goals of care remains a central tenet of the planning conversation. At pt request, I provided an overview of his medical issues with attention to the fact that this is a widely metastatic colon cancer and the cytology from recently drained ascitic fluid confirmed metastatic colon cancer. He would like to have chemo therapy and even though he has been told it is not a curable caner by all specialty providers, he continues to hope it will "go away and I'll be ok again." His family is supportive and express willingness to help as much as they can, one sister offered to have pt come live with her and her (they live in a 3 bedroom trailer home near [facility]) so that he would have help with care and not be alone. The family is honest about needing help with transporting him to appointments because they would not be able to commit to this inspector timers due to their work schedules as well as the costs. We reviewed cancer clinic navigators can assist with this issue and pt then expressed concerns about his personal finances, health insurance "getting canceled because I'm not working" and how he does not think he has disability. His friend was not able to bring the HR forms to him Weds due to car issues. His family encouraged him to call HR and have forms mailed to the house so they can bring to pt. Patient states he was able to reach his long lost daughter and they had a conversation. He isn't sure where things will go from here but feels better having made the connection. His family share that they had been out of touch with patient for nearly a decade because he distanced himself from them during his marriage. They note 'no hard feeling, we are here now and we are family.' We revisited code status and spoke about CPR survival: Only about 10% of patients who have cwu-wz-aaklzfna sudden cardiac arrest survive to hospital discharge, with many survivors having neurologic impairment. This rate is even lower among patients with serious coexisting conditions, ie chance of survival to hospital discharge for in-hospital CPR in older people is low to moderate (15%) and decreases with age, comorbidities, performance status and frailty: for pts > 70 yo, more than half of the patients who initially survived resuscitation in the hospital before hospital discharge. The pooled survival to discharge after in-hospital CPR was 18% for patients between 70 and 79 years old, 15% for patients between 80 and 89 years old and 11% for patients of 90 years and older. (Selwyn CHIN, Hilario LJ, Patrice F, et al. Trends in short- and long-term survival among znz-js-egxltusx cardiac arrest patients alive at hospital arrival. Circulation 2014;130:3913-5676. AND Liane C, Luz T, Karne R, et al. Performance of clinical risk scores to predict mortality and neurological outcome in cardiac arrest patients. Resuscitation 2019;136:21-29.) We spoke about how with pt existing issues, smoking related lung disease, declining PS and frailty against the landscape of widely met colon ca, CPR will not offer a meaningful/life improving benefit and he would not recover to a new baseline ABOVE his existing one but rather would be a new, lower baseline if he managed to survive the CPR event. The likelihood is that if he had CPR it would be due to cancer related complications and these are not reversible, fixable or curable issues. When asked "where do you see yourself at the end of your life?" pt replied he wants to be home, with family and friends. He does not want to in hospital or on machines but then he says "but I want to do everything i can to get rid of this cancer, they can do whatever they need to do to get me cured, get me better." Gently advised this is not curable. gently advised a lower baseline would likely lead to a situation where cancer directed options may not be feasible. I encouraged him NOT to make a decision today but to spend some time thinking about all of this information and speak further with, and as, a family. Additional questions re disposition planning, DME supplies and home health support were answered. patient is very focused on starting chemo and did not wish to explore any discussion about what if chemo is not well tolerated or he becomes sicker/develops serious complications. He was able to clearly indicate preference if he is dying or at the end of life/no more can be done, then he wants to be home. (3) Cancer related pain: (4) SBO (small bowel obstruction): Plan: s/p Loop Ilieostomy, on right (5) Colon cancer: (6) Abdominal pain, generalized: (7) Colonic mass: (8) Peritoneal carcinomatosis: (9) Pulmonary metastases: Plan Family discussions/ACP as noted above. No change to pain med I am off 08/06/[address] Major will be covering for urgent needs. Thank you for allowing us to participate in the ongoing care of this patient. Please don't hesitate to call or page with any additional concerns. Dr. Mana Ritter DNP Director, Palliative Care Admission and Anticipated Discharge Date Admission Date: July 30, 2022 Subjective s/p ostomy and new mediport asking when he can eat or drink anxious about cancer treatment, repeatedly asks if it will cure him denies n/v NGT remains some surgical site pain but overall does not ask for pain meds breathing stable: no SOD, cough no fevers, sweats or chills His brother, sister in law and sister are visiting Review of Systems Review of Systems: All systems reviewed & are unremarkable except as noted in Subjective Physical Exam Physical Exam: Frail male, semi reclined in bed, intermittently tearful Bitemp wasting. PERRLA. EOMIs +NGT with dark brown to light brown drainage lungs diminished, few rhonchi, no stridor, +left mediport CV S1S2, no JVD, no murmur Abd distended, + right ostomy, mildly TTP, no guarding Generalized weakness BLE +1 edema/pitting AAOx3 Results & Data Vital Signs (Past 12 Hours) Vital Signs Temp Pulse Resp BP Pulse Ox O2 Del Method O2 Del Method 08/03/22 15:31 36.7 C 94 H 18 115/79 90 Oxymask 08/03/22 12:25 36.6 C 101 H 16 114/75 90 Oxymask 08/03/22 08:00 Oxymask 08/03/22 08:00 Oxymask 08/03/22 08:00 36.6 C 99 H 20 107/75 91 Oxymask O2 Flow Rate O2 Flow Rate 08/03/22 15:31 5 08/03/22 12:25 5 08/03/22 08:00 5 08/03/22 08:00 5 08/03/22 08:00 5 Laboratory Results reviewed Diagnostic Findings reviewed PG Care Time/CCT Total # of Minutes Spent Total Time Spent: 100 Total Time Spent with Patient: Total time spent is greater than 50% in coordination of care (as documented) at patient's floor/unit and/or counseling patient: I spent 100 minutes overall addressing this case: 10 in medical data review/discussion with referring provider(s) and/or preparation for the visit 20 in direct interaction with the patient 60 Advance Care Planning/Goals of Care discussions as detailed above in note (must be >16min) 5 in subsequent review and synthesis of assessment and plan 5 in communicating with other providers regarding the patient's case: [] Prolonged Care Time Prolonged Care Time: Yes Advanced Care Planning 22675 Advanced Care Planning 30 Min [id number] Advanced Care Planning Additional 30 Min C[place] [address] SUB INP/OBS CARE 3/50MIN Patient Type Established History Comprehensive Exam Comprehensive Medical Decision Making High Complexity Diagnoses Palliative care by specialist Z51.5 Advanced care planning/counseling discussion Z71.89 Cancer related pain G89.3 SBO (small bowel obstruction) K56.609 Colon cancer C18.9 Colon location: unspecified part of colon Abdominal pain, generalized R10.84 Colonic mass K63.89 Peritoneal carcinomatosis C78.6 Pulmonary metastases C78.01; C78.02 Laterality: bilateral Additional Codes Advanced Care Planning - 33229 Advanced Care Planning 30 Min: 56862 Advanced Care Planning 30 Min ([id number]) Advanced Care Planning - 62914 Advanced Care Planning Additional 30 Min: 25978 Advanced Care Planning Additional 30 Min ([id number]) Prolonged Care Time - Prolonged Care Time: Yes ([id number]) (5) Colon cancer Colon location: unspecified part of colon Qualified Code(s): C18.9 - Malignant neoplasm of colon, unspecified (9) Pulmonary metastases Laterality: bilateral Qualified Code(s): C78.01 - Secondary malignant neoplasm of right lung; C78.02 - Secondary malignant neoplasm of left lung
[2022-08-03] MEDS: MoRPHine SULFATE 4 MG/ML 1 ML CARP\\VIAL IV PRN (18:15)
[2022-08-04] MEDS: PIPERACILLIN/TAZOBACTAM 4.5 GM in DEXTROSE 5% 100 ML IV SCH ×3 (03:21→18:09)
[2022-08-04 06:33] LABS: Hematocrit (blood only) 33.7 % (42.0-52.0); Hemoglobin 10.8 g/dl (14.0-18.0); Mean Corpuscular Hemoglobin 29.1 pg (25.0-34.0); Mean Corpuscular Volume 90.8 fL (80.0-100.0); Mean Platelet Volume 9.9 fL (9.4-12.4); Platelet Count 336 K/uL (130-400); RDW Coefficient of Variation 13.3 % (11.5-14.5); RDW Standard Deviation 43.6 fL (36.4-46.3); Red Blood Count 3.71 M/uL (4.70-6.10); White Blood Count 24.67 K/ul (4.8-10.8)
[2022-08-04 06:50] LABS: Albumin Globulin Ratio 0.9 (0.9-2); Albumin Level 2.1 gm/dl (3.4-5.0); BUN Creatinine Ratio 24.1 (10-20); Bilirubin,Total 0.6 mg/dl (0.2-1.0); Calcium 7.5 mg/dl (8.6-10.3); Creatinine Clr Calc Pharmacy 92.8 ml/min; Est GFR (African American) 107.8 ml/min; Globulin 2.4 gm/dl (2.5-4.0); Magnesium 2.1 mg/dl (1.7-2.4); Potassium 3.4 mmol/L (3.5-5.1); Total Protein 4.5 gm/dl (6.0-8.3)
--- NOTE | 2022-08-04 07:14 | Hematology/Oncology Prog Note ---
Date of Service August 04, 2022 Assessment & Plan (1) Colon cancer: (2) Lymphadenopathy: (3) Peritoneal carcinomatosis: Plan 62-year-old gentleman with widely metastatic colon cancer for which he is s/p diverting ileostomy and Mediport placement on 08/02/2022. -Would recommend obtaining CTA chest to rule out PE/infection given increasing supplemental O2 requirement, recent surgery and malignancy -Revisited treatment options with patient including supportive care/hospice or systemic therapy with IV FOLFOX possibly in combination with monoclonal antibody depending on EARNESTINE/BRAF mutation analysis. Patient absolutely wants to receive systemic therapy. He has been set up for Outpatient follow-up appointment with me on 08/09/2022. Admission and Anticipated Discharge Date Admission Date: July 30, 2022 Subjective Complains of pain around site of urinary catheter which was removed this morning. Now requiring 6 L/min supplemental O2 Review of Systems Review of Systems: All systems reviewed & are unremarkable except as noted in Subjective Results & Data Vital Signs (Past 12 Hours) Vital Signs Temp Pulse Pulse Resp BP Pulse Ox O2 Del Method 08/04/22 03:46 36.3 C L 94 H 18 118/80 90 Oxymask 08/03/22 22:03 93 H 08/03/22 23:34 36.5 C 95 H 18 128/83 91 Oxymask 08/03/22 21:15 Oxymask 08/03/22 19:50 36.7 C 102 H 20 108/68 91 Oxymask O2 Flow Rate 08/04/22 03:46 6 08/03/22 22:03 08/03/22 23:34 5 08/03/22 21:15 5 08/03/22 19:50 5 (1) Colon cancer Colon location: unspecified part of colon Qualified Code(s): C18.9 - Malignant neoplasm of colon, unspecified
[2022-08-04 07:16] LABS: Basophils # (auto) 0.04 K/uL (0-0.2); Basophils % (auto) 0.2 %; Eosinophils # (auto) 0.04 K/uL (0-0.50); Eosinophils % (auto) 0.2 %; Immature Granulocytes # (auto) 0.19 K/uL (0.01-0.20); Immature Granulocytes % (auto) 0.8 %; Lymphocytes # (auto) 0.81 K/uL (1.2-3.4); Lymphocytes % (auto) 3.3 %; Monocytes # (auto) 0.72 K/uL (0.11-0.59); Monocytes % (auto) 2.9 %; Neutrophils # (auto) 22.87 K/uL (1.40-6.50); Neutrophils % (auto) 92.6 %; RBC Morphology Unremarkable
--- NOTE | 2022-08-04 07:25 | Hospitalist Progress Note ---
Date of Service August 04, 2022 Assessment & Plan (1) SBO (small bowel obstruction): Plan: 62-year-old male with no known past medical history and no PCP (has not seen or needed a doctor since childhood) who p/w abdominal pain and swelling and was found to have metastatic colon cancer with subsequent SBO. Narrowing of the ileocecal valve with resultant upstream small bowel obstruction secondary to soft tissue prominence within the cecum and ileocecal valve suggestive of primary mucosal colonic malignancy General surgery consulted: s/p diverting ileostomy 08/02, healing well Escalate diet as tolerated, currently on full liquids K 3.4, replete with K Riders and start KCl PO supplement. 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 Díaz, appreciate her recs this admission) Did have Staph epi and MSSA in 05/09 BCxs which is a skin contaminant and repeat blood cultures negative over 48 hrs, no fevers or sepsis PT and OT evaluations ordered for dispo planning; patient will be staying with his sister (3) Pulmonary metastases: Plan: With acute respiratory failure with hypoxia- pulse ox such that patient requiring supplemental O2 up to 6L oxymask this AM CT Chest with innumerable mets from colon cancer, CTA Chest 08/04 without evidence of PNA or PE Will need two step to determine oxygen needs prior to return home, if that continues to be plan Suspect given patient did not endorse SOB at SpO2 77% this AM that he has been hypoxic for longer than just this admission at times, but will likely need oxygen on discharge Mets are suspected cause of hypoxia (4) Ascites: Plan: 2/2 metastatic disease paracentesis performed and 6L removed on admission, no worsening of abdominal distention today Gram stain/cx no growth (no SBP), cytology with adenocarcinoma of colon (5) Demand ischemia of myocardium: Plan: Trop mildly elevated at 31 and down to 28 on repeat check, and 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 He has no indwelling hardware or valvular disease Remains on Zosyn for gut coverage given leukocytosis, however most likely can dc abx tomorrow (7) Hyponatremia: Plan: Na+ 131 on admission and now up to 140 with IV hydration, can d/c IV fluids Ur Na 23 and Ur Osmol 923 earlier this admission consistent with hypovolemia (8) Peripheral edema: Plan: likely 2/2 abdominal mets, hypoalbuminemia from cancer Dopplers venous LEs bilat negative ECHO normal Plan DVT proph- Lovenox DVT ppx to begin tomorrow AM Dispo- Tele, continued eval of respiratory status, PT and OT for dispo planning Care discussed with Palliative and Heme/Onc Patient remains FULL CODE at this time Admission and Anticipated Discharge Date Admission Date: July 30, 2022 Subjective Patient without acute events overnight. During my interview patient did not have oxygen on while eating lunch, did not feel SOB however had pulse ox of 77% on room air, quickly improved on 5L Oxymask. Denies increased abdominal discomfort or distention, chest pain. Review of Systems Review of Systems: All systems reviewed & are unremarkable except as noted in Subjective Physical Exam Physical Exam: awake/alert, no distress Constitutional: + thin Respiratory: normal respiratory effort, lungs clear to auscultation wearing oxymask 5L, lungs rhonchorous Cardiovascular: RRR, no murmur, no edema Chest (Breasts): Additional Comments: mediport incision healing well no surrounding erythema Gastrointestinal (Abdomen): normal bowel sounds, soft, nontender, no hepatosplenomegaly Inspection/Auscultation: + abdominal surgical incision (c/d/i); abdomen not distended ostomy beefy red, healthy appearing Skin: no rashes, warm and dry Psychiatric: A+Ox3, euthymic affect Results & Data Results & Data Vital Signs (Past 12 Hours) Vital Signs Temp Pulse Pulse Resp BP Pulse Ox O2 Del Method 08/04/22 03:46 36.3 C L 94 H 18 118/80 90 Oxymask 08/03/22 22:03 93 H 08/03/22 23:34 36.5 C 95 H 18 128/83 91 Oxymask 08/03/22 21:15 Oxymask 08/03/22 19:50 36.7 C 102 H 20 108/68 91 Oxymask O2 Flow Rate 08/04/22 03:46 6 08/03/22 22:03 08/03/22 23:34 5 08/03/22 21:15 5 08/03/22 19:50 5 PG Care Time/CCT Total # of Minutes Spent Total Time Spent with Patient: Total time spent is greater than 50% in coordination of care (as documented) at patient's floor/unit and/or counseling patient: Coding Level of Care Code 45119 SUB INP/OBS CARE 3/50MIN Diagnoses SBO (small bowel obstruction) K56.609 Colon cancer C18.9 Colon location: unspecified part of colon Pulmonary metastases C78.01; C78.02 Laterality: bilateral Ascites R18.8 Demand ischemia of myocardium I24.8 Bacteremia R78.81 Hyponatremia E87.1 Peripheral edema R60.9 (2) Colon cancer Colon location: unspecified part of colon Qualified Code(s): C18.9 - Malignant neoplasm of colon, unspecified (3) Pulmonary metastases Laterality: bilateral Qualified Code(s): C78.01 - Secondary malignant neoplasm of right lung; C78.02 - Secondary malignant neoplasm of left lung
--- NOTE | 2022-08-04 08:23 | Surgery Progress Note ---
Date of Service August 04, 2022 Assessment & Plan (1) Ileostomy in place: Plan: Doing well postoperatively. Ileostomy functioning. Tolerating clears. He would like to try little more so we will advance him to full liquids. Continue to increase activity as tolerated. Admission and Anticipated Discharge Date Admission Date: July 30, 2022 Subjective Patient seen. Feeling well overall. He has no nausea and is tolerating clear liquid diet. Physical Exam Physical Exam: Alert. No acute distress. Ileostomy looks good with good output. Results & Data Vital Signs (Past 12 Hours) Vital Signs Temp Pulse Pulse Resp BP Pulse Ox O2 Del Method 08/04/22 03:46 36.3 C L 94 H 18 118/80 90 Oxymask 08/03/22 22:03 93 H 08/03/22 23:34 36.5 C 95 H 18 128/83 91 Oxymask 08/03/22 21:15 Oxymask O2 Flow Rate 08/04/22 03:46 6 08/03/22 22:03 08/03/22 23:34 5 08/03/22 21:15 5 PG Care Time/CCT Total # of Minutes Spent Total Time Spent with Patient: Total time spent is greater than 50% in coordination of care (as documented) at patient's floor/unit and/or counseling patient: Coding Level of Care Code 84778 Post Operative Follow-Up Diagnoses Ileostomy in place Z93.2
[2022-08-04] MEDS ORDERED: OPTIRAY 320 500ml IV ONE (10:38)
--- NOTE | 2022-08-04 11:22 | CT Scan Report ---
CT angio chest PE protocol CLINICAL HISTORY: PE TECHNIQUE: Multidetector row helical CT of the chest was performed with angiographic protocol. Phillips l and sagittal reformations were obtained. Coronal and sagittal MIPS were obtained from the axial mari a set and were submitted for review. Automated dose lowering techniques and/or adjustment according to patient size were utilized for this exam. CT DOSE: 337.77 mGy.cm Comparison: Comparison is made to CT chest 08/01/[address] abdomen pelvis 07/30/2022 FINDINGS: Lungs and pleura: Innumerable pulmonary nodules are again seen throughout the lungs. Small bilateral pleural effusions are seen with underlying atelectasis. Heart and pericardium: Heart size is normal. No pericardial effusion. Vessels: No evidence of pulmonary embolism. Mediastinum and gisele: Mediastinal and bilateral hilar lymphadenopathy again noted. Chest wall and lower neck: Unremarkable. Abdomen: Unremarkable. Bones: Partially visualized hepatic masses and ascites. Lymphadenopathy is seen in the upper abdomen. IMPRESSION: 1. No pulmonary embolus is seen. 2. Small bilateral pleural effusions with associated atelectasis. 3. Innumerable pulmonary nodules and lymphadenopathy in the mediastinum or gisele. 4. Partially visualized liver masses and ascites along with abdominal lymphadenopathy as seen on candida or CT abdomen pelvis. ACT 112: Negative or not required by law. Electronically signed by: Robby Fernandez M.D. 08/04/2022 11:20 AM
[2022-08-04] MEDS: LACTATED RINGER'S 1,000 ML IV SCH (13:02)
[2022-08-04] MEDS ORDERED: POLYETHYLENE (MIRALAX) 17 GM PACK PO PRN (21:38)
[2022-08-04] MEDS: POTASSIUM CHLORIDE / WTR 10 MEQ/100 ML PLCT IV SCH (22:55)
[2022-08-05] MEDS: POTASSIUM CHLORIDE / WTR 10 MEQ/100 ML PLCT IV SCH ×3 (00:11→02:22)
[2022-08-05 06:11] LABS: Hematocrit (blood only) 32.8 % (42.0-52.0); Hemoglobin 10.7 g/dl (14.0-18.0); Mean Corpuscular Hemoglobin 29.1 pg (25.0-34.0); Mean Corpuscular Hgb Conc 32.6 g/dL (32.0-36.0); Mean Corpuscular Volume 89.1 fL (80.0-100.0); Mean Platelet Volume 10.1 fL (9.4-12.4); Platelet Count 295 K/uL (130-400); RDW Coefficient of Variation 12.8 % (11.5-14.5); RDW Standard Deviation 41.4 fL (36.4-46.3); Red Blood Count 3.68 M/uL (4.70-6.10); White Blood Count 23.87 K/ul (4.8-10.8)
[2022-08-05 06:17] LABS: Albumin Globulin Ratio 0.8 (0.9-2); Albumin Level 2.1 gm/dl (3.4-5.0); BUN Creatinine Ratio 22.9 (10-20); Bilirubin,Total 0.4 mg/dl (0.2-1.0); Calcium 7.3 mg/dl (8.6-10.3); Creatinine Clr Calc Pharmacy 110.1 ml/min; Est GFR (African American) 115.6 ml/min; Est GFR (Non-African American) 99.7 ml/min; Globulin 2.5 gm/dl (2.5-4.0); Magnesium 1.9 mg/dl (1.7-2.4); Potassium 3.7 mmol/L (3.5-5.1); Total Protein 4.6 gm/dl (6.0-8.3)
[2022-08-05 06:43] LABS: Basophils # (auto) 0.03 K/uL (0-0.2); Basophils % (auto) 0.1 %; Eosinophils # (auto) 0.05 K/uL (0-0.50); Eosinophils % (auto) 0.2 %; Immature Granulocytes # (auto) 0.19 K/uL (0.01-0.20); Immature Granulocytes % (auto) 0.8 %; Lymphocytes # (auto) 0.94 K/uL (1.2-3.4); Lymphocytes % (auto) 3.9 %; Monocytes # (auto) 0.79 K/uL (0.11-0.59); Monocytes % (auto) 3.3 %; Neutrophils # (auto) 21.87 K/uL (1.40-6.50); Neutrophils % (auto) 91.7 %
--- NOTE | 2022-08-05 08:41 | Hospitalist Progress Note ---
Date of Service August 05, 2022 Assessment & Plan (1) SBO (small bowel obstruction): Plan: 62-year-old male with no known past medical history and no PCP (has not seen or needed a doctor since childhood) who p/w abdominal pain and swelling and was found to have metastatic colon cancer with subsequent SBO. Narrowing of the ileocecal valve with resultant upstream small bowel obstruction secondary to soft tissue prominence within the cecum and ileocecal valve suggestive of primary mucosal colonic malignancy General surgery consulted: s/p diverting ileostomy 08/02, healing well and will need outpatient follow-up Escalated to low fiber diet today, tolerating well so far K 3.7, continue KCl elixir Zosyn discontinued 08/04 as no clear source of localizable infection, WBC count elevation suspected reactive stress response from metastatic cancer As needed antiemetics and analgesics (2) Colon cancer: Plan: Metastatic colon cancer with secondary malignant neoplasm of liver and lungs, with carcinomatosis CEA elevated at 70 LFTs elevated from liver mets CT Chest with extensive metastatic pulm disease Soft tissue prominence within the cecum and ileocecal valve 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 Díaz, appreciate her recs this admission) Did have Staph epi and MSSA in 05/09 BCxs which is a skin contaminant and repeat blood cultures negative over 48 hrs, no fevers or sepsis PT and OT evaluations ordered for dispo planning, and did fairly well today requiring 6 L with ambulation; patient will be staying with his sister (3) Pulmonary metastases: Plan: With acute respiratory failure with hypoxia-tolerating 5 L at rest well CT Chest with innumerable mets from colon cancer, CTA Chest 08/04 without evidence of PNA or PE Mets are suspected cause of hypoxia, multifactorial with suspected underlying undiagnosed COPD given for decades smoking history, patient quit 1 week ago and does not intend to resume smoking We will start ICS/LABA/LAMA while admitted, to continue on discharge with follow-up pulmonary function testing Two-step tomorrow morning (4) Ascites: Plan: 2/2 metastatic disease paracentesis performed and 6L removed on admission, no worsening of abdominal distention today, continue serial exams Gram stain/cx no growth (no SBP), cytology with adenocarcinoma of colon (5) Demand ischemia of myocardium: Plan: Trop mildly elevated at 31 and down to 28 on repeat check, and ECG with old anterior infarct With LE edema on exam which is likely related to ascites and peritoneal carcinomatosis, checked ECHO normal EF, no WMA continue tele monitoring-sinus tach at times is likely reactive to widely metastatic disease (6) Bacteremia: Plan: 1/4 bottles with Staph epidermidis and MSSA Skin contaminant given 2 different organisms in same bottle, only 1/4 bottles, and repeat BCxs 1 day later are negative. He has no indwelling hardware or valvular disease Remains on Zosyn for gut coverage given leukocytosis, however most likely can dc abx tomorrow (7) Hyponatremia: Plan: Na+ 131 on admission and now up to 140 with IV hydration, can d/c IV fluids Ur Na 23 and Ur Osmol 923 earlier this admission consistent with hypovolemia (8) Peripheral edema: Plan: likely 2/2 abdominal mets, hypoalbuminemia from cancer Dopplers venous LEs bilat negative ECHO normal Plan DVT proph - Lovenox Discussed care plan with patient's sister, who patient will be staying with on discharge Patient remains FULL CODE at this time Admission and Anticipated Discharge Date Admission Date: July 30, 2022 Subjective No acute events overnight. Feeling well with regard to his breathing. Does not feel that his abdomen is more distended or tense today. Tolerated breakfast without issues. Review of Systems Review of Systems: All systems reviewed & are unremarkable except as noted in Subjective Physical Exam Physical Exam: awake/alert, no distress Constitutional: + thin Respiratory: normal respiratory effort, lungs clear to auscultation wearing oxymask 5L, lungs clear to auscultation Cardiovascular: RRR, no murmur, no edema Chest (Breasts): Additional Comments: mediport incision healing well no surrounding erythema Gastrointestinal (Abdomen): normal bowel sounds, soft, nontender, no hepatosplenomegaly Inspection/Auscultation: + abdomen distended (Mild) and + abdominal surgical incision (c/d/i) ostomy beefy red, healthy appearing Skin: no rashes, warm and dry Psychiatric: A+Ox3, euthymic affect Results & Data Results & Data Vital Signs (Past 12 Hours) Vital Signs Temp Pulse Pulse Resp BP Pulse Ox O2 Del Method 08/05/22 07:27 36.4 C L 90 19 104/74 92 Oxymask 08/05/22 02:45 36.6 C 82 18 116/76 90 Oxymask 08/04/22 23:07 87 08/04/22 23:04 36.5 C 87 18 104/70 90 Oxymask O2 Flow Rate 08/05/22 07:27 5 08/05/22 02:45 5 08/04/22 23:07 08/04/22 23:04 5 PG Care Time/CCT Total # of Minutes Spent Total Time Spent with Patient: Total time spent is greater than 50% in coordination of care (as documented) at patient's floor/unit and/or counseling patient: Coding Level of Care Code 34780 SUB INP/OBS CARE 3/50MIN Diagnoses SBO (small bowel obstruction) K56.609 Colon cancer C18.9 Colon location: unspecified part of colon Pulmonary metastases C78.01; C78.02 Laterality: bilateral Ascites R18.8 Demand ischemia of myocardium I24.8 Bacteremia R78.81 Hyponatremia E87.1 Peripheral edema R60.9 (2) Colon cancer Colon location: unspecified part of colon Qualified Code(s): C18.9 - Malignant neoplasm of colon, unspecified (3) Pulmonary metastases Laterality: bilateral Qualified Code(s): C78.01 - Secondary malignant neoplasm of right lung; C78.02 - Secondary malignant neoplasm of left lung
[2022-08-05] MEDS: ENOXAPARIN INJ 40 MG/0.4 ML SYR SQ SCH (08:52)
[2022-08-05] MEDS ORDERED: POTASSIUM CHLORIDE CRTAB 20 MEQ TABCR PO SCH (09:00)
--- NOTE | 2022-08-05 10:09 | Surgery Progress Note ---
Date of Service August 05, 2022 Assessment & Plan (1) Ileostomy in place: Plan: Continues to improve. We will advance him to a low residue diet. No acute postoperative issues. Admission and Anticipated Discharge Date Admission Date: July 30, 2022 Subjective Patient seen. Feeling okay. Is tolerating full liquid diet without difficulty. No nausea. Physical Exam Physical Exam: Alert. No acute distress Abdomen soft nontender. He has had good stool put out of his ileostomy all weekend Results & Data Vital Signs (Past 12 Hours) Vital Signs Temp Pulse Pulse Resp BP Pulse Ox O2 Del Method 08/05/22 07:27 36.4 C L 90 19 104/74 92 Oxymask 08/05/22 02:45 36.6 C 82 18 116/76 90 Oxymask 08/04/22 23:07 87 08/04/22 23:04 36.5 C 87 18 104/70 90 Oxymask O2 Flow Rate 08/05/22 07:27 5 08/05/22 02:45 5 08/04/22 23:07 08/04/22 23:04 5 PG Care Time/CCT Total # of Minutes Spent Total Time Spent with Patient: Total time spent is greater than 50% in coordination of care (as documented) at patient's floor/unit and/or counseling patient: Coding Level of Care Code 70291 Post Operative Follow-Up Diagnoses Ileostomy in place Z93.2
[2022-08-05] MEDS ORDERED: ALBUT/IPRATROP 3MG/0.5MG NEB 3 ML VIAL INH PRN (15:29)
[2022-08-05] MEDS: UMECLIDINIUM/VILANTEROL 62.5/25MCG 7 PUFFS/INHALER INH SCH (16:53)
[2022-08-06 06:45] LABS: Hematocrit (blood only) 32.7 % (42.0-52.0); Hemoglobin 10.6 g/dl (14.0-18.0); Mean Corpuscular Hgb Conc 32.4 g/dL (32.0-36.0); Mean Corpuscular Volume 89.3 fL (80.0-100.0); Mean Platelet Volume 10.4 fL (9.4-12.4); Platelet Count 284 K/uL (130-400); RDW Coefficient of Variation 13.1 % (11.5-14.5); RDW Standard Deviation 42.8 fL (36.4-46.3); Red Blood Count 3.66 M/uL (4.70-6.10); White Blood Count 22.31 K/ul (4.8-10.8)
[2022-08-06 06:57] LABS: Albumin Globulin Ratio 0.9 (0.9-2); Albumin Level 2.2 gm/dl (3.4-5.0); Bilirubin,Total 0.4 mg/dl (0.2-1.0); Calcium 7.3 mg/dl (8.6-10.3); Creatinine Clr Calc Pharmacy 128.4 ml/min; Est GFR (African American) 123.2 ml/min; Est GFR (Non-African American) 106.3 ml/min; Globulin 2.5 gm/dl (2.5-4.0); Magnesium 1.8 mg/dl (1.7-2.4); Potassium 3.4 mmol/L (3.5-5.1); Total Protein 4.7 gm/dl (6.0-8.3)
[2022-08-06 07:20] LABS: Basophils # (auto) 0.03 K/uL (0-0.2); Basophils % (auto) 0.1 %; Eosinophils # (auto) 0.03 K/uL (0-0.50); Eosinophils % (auto) 0.1 %; Immature Granulocytes # (auto) 0.19 K/uL (0.01-0.20); Immature Granulocytes % (auto) 0.9 %; Lymphocytes # (auto) 0.73 K/uL (1.2-3.4); Lymphocytes % (auto) 3.3 %; Monocytes # (auto) 0.88 K/uL (0.11-0.59); Monocytes % (auto) 3.9 %; Neutrophils # (auto) 20.45 K/uL (1.40-6.50); Neutrophils % (auto) 91.7 %
[2022-08-06] MEDS: UMECLIDINIUM/VILANTEROL 62.5/25MCG 7 PUFFS/INHALER INH SCH (08:23)
[2022-08-06] MEDS: ENOXAPARIN INJ 40 MG/0.4 ML SYR SQ SCH (08:23)
[2022-08-06] MEDS: FLUTICASONE FUROATE 200MCG 14 PUFFS/INHALER INH SCH (08:23)
[2022-08-06] MEDS: POTASSIUM CHLORIDE 20 MEQ/15 ML UDC PO SCH (08:35)
[2022-08-06] MEDS ORDERED: UMECLIDINIUM/VILANTEROL 62.5/25MCG 7 PUFFS/INHALER INH SCH (09:00)
[2022-08-06] MEDS ORDERED: POTASSIUM CHLORIDE 20 MEQ/15 ML UDC PO SCH (09:00)
--- NOTE | 2022-08-06 10:05 | Hospitalist Progress Note ---
Date of Service August 06, 2022 Assessment & Plan (1) SBO (small bowel obstruction): Plan: 62-year-old male with no known past medical history and no PCP (has not seen a doctor since childhood) who p/w abdominal pain and swelling and was found to have metastatic colon cancer with subsequent SBO. Narrowing of the ileocecal valve with resultant upstream small bowel obstruction secondary to soft tissue prominence within the cecum and ileocecal valve suggestive of primary mucosal colonic malignancy General surgery consulted: s/p diverting ileostomy 08/02, healing well and will need outpatient follow-up (2 weeks post-op) Tolerating low fiber diet without issues K 3.4, continue KCl elixir Zosyn discontinued 08/04, WBC count elevation could be stress response from cancer however with MSSA + BCx for now need to assume true positive and treat As needed antiemetics and analgesics CM assisting with several needs including need for PCP, oxygen on discharge, IV Abx, and possibly facility discharge if unable to return home due to care needs (2) Colon cancer: Plan: Metastatic colon cancer with secondary malignant neoplasm of liver and lungs, with carcinomatosis CEA elevated at 70 LFTs elevated from liver mets CT Chest with extensive metastatic pulm disease Soft tissue prominence within the cecum and ileocecal valve 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 Díaz, appreciate her recs this admission) PT and OT evaluations ordered for dispo planning, and did fairly well requiring 2LNC with rest and activity today (3) Pulmonary metastases: Plan: With acute respiratory failure with hypoxia - tolerating supplemental oxygen CT Chest with innumerable mets from colon cancer, CTA Chest 08/04 without evidence of PNA or PE Mets are suspected cause of hypoxia, multifactorial with suspected underlying undiagnosed COPD given for decades smoking history, patient quit 1 week ago and does not intend to resume smoking Continue ICS/LABA/LAMA while admitted, to continue on discharge with follow-up pulmonary function testing Two-step prior to discharge if returning home (4) MSSA bacteremia: Plan: 07/30 05/09 BCx with Staph epidermidis and MSSA, vaguely possible it could be a contaminant, but I am concerned at this point given ongoing leukocytosis and had port placed for future chemo, that this is likely a true infection Fortunately repeat BCx 07/31 negative, will repeat again today 08/06 before starting cefazolin Echo on 07/31 without vegetation, continue to monitor, may need to repeat Patient is likely a poor candidate for home Abx, low health literacy, may require facility if requires IV Abx on discharge (5) Ascites: Plan: 2/2 metastatic disease Paracentesis performed and 6L removed on admission, no worsening of abdominal distention today, continue serial exams Gram stain/cx no growth (no SBP), cytology with adenocarcinoma of colon (6) Demand ischemia of myocardium: Plan: Trop mildly elevated at 31 and down to 28 on repeat check, and ECG with old anterior infarct With LE edema on exam which is likely related to ascites and peritoneal carcinomatosis, checked ECHO normal EF, no WMA Continue tele monitoring (7) Hyponatremia: Plan: Mild, Na 133 today, lowest was 131, with noted hypoalbuminemia, does not appear dry, no longer receiving IVF or IV diuresis Continue to monitor (8) Peripheral edema: Plan: Likely 2/2 abdominal mets, hypoalbuminemia from cancer Dopplers venous LEs bilat negative ECHO normal ROXI jacobs Plan DVT proph - Lovenox Discussed care plan with patient's sister, who patient will be staying with on discharge if he returns home Patient remains FULL CODE at this time Admission and Anticipated Discharge Date Admission Date: July 30, 2022 Subjective Patient without any acute events overnight, did walk with respiratory today and required 2 L continuous. No reports of fevers. No reports of worsening abdominal distention. Review of Systems Review of Systems: All systems reviewed & are unremarkable except as noted in Subjective Physical Exam Physical Exam: awake/alert, no distress Constitutional: + thin Respiratory: normal respiratory effort, lungs clear to auscultation wearing Oxymask 4L, lungs clear to auscultation Cardiovascular: RRR, no murmur, no edema Chest (Breasts): Additional Comments: mediport incision healing well no surrounding erythema Gastrointestinal (Abdomen): normal bowel sounds, soft, nontender, no hepatosplenomegaly Inspection/Auscultation: + abdomen distended (Mild) and + abdominal surgical incision (c/d/i) ostomy beefy red, healthy appearing Skin: no rashes, warm and dry Psychiatric: A+Ox3, euthymic affect Results & Data Results & Data Vital Signs (Past 12 Hours) Vital Signs Temp Pulse Pulse Pulse Pulse Pulse Pulse 08/06/22 09:19 102 H 120 H 117 H 107 H 08/06/22 07:26 36.4 C L 89 08/06/22 01:14 36.6 C 84 08/05/22 23:23 85 Resp Resp Resp Resp Resp BP Pulse Ox 08/06/22 09:19 22 26 H 22 22 08/06/22 07:26 20 104/73 93 08/06/22 01:14 18 112/71 90 08/05/22 23:23 Pulse Ox Pulse Ox Pulse Ox Pulse Ox O2 Del Method O2 Flow Rate O2 Flow Rate 08/06/22 09:19 90 90 91 86 L 2 08/06/22 07:26 Oxymask 5 08/06/22 01:14 Oxymask 5 08/05/22 23:23 O2 Flow Rate O2 Flow Rate 08/06/22 09:19 2 2 08/06/22 07:26 08/06/22 01:14 08/05/22 23:23 PG Care Time/CCT Total # of Minutes Spent Total Time Spent with Patient: Total time spent is greater than 50% in coordination of care (as documented) at patient's floor/unit and/or counseling patient: Coding Level of Care Code 86638 SUB INP/OBS CARE 3/50MIN Diagnoses SBO (small bowel obstruction) K56.609 Colon cancer C18.9 Colon location: unspecified part of colon Pulmonary metastases C78.01; C78.02 Laterality: bilateral MSSA bacteremia R78.81; B95.61 Ascites R18.8 Demand ischemia of myocardium I24.8 Hyponatremia E87.1 Peripheral edema R60.9 (2) Colon cancer Colon location: unspecified part of colon Qualified Code(s): C18.9 - Malignant neoplasm of colon, unspecified (3) Pulmonary metastases Laterality: bilateral Qualified Code(s): C78.01 - Secondary malignant neoplasm of right lung; C78.02 - Secondary malignant neoplasm of left lung
[2022-08-06] MEDS: ceFAZolin 2000MG 2,000 MG/15 ML SYR IV SCH ×2 (10:57→18:10)
--- NOTE | 2022-08-06 11:47 | Infectious Disease Consult ---
Date of Consultation August 06, 2022 Assessment & Plan (1) Colon cancer: 1.MSSA bacteremia 2. Leukocytosis 3. New diagnosis of Stage IV colon cancer 62 yo M without significant PMH was admitted to [facility] with abdominal distention and abdominal pain, found to have metastatic colon cancer. Infectious diseases consulted for bacteremia and ongoing leukocytosis. Patient was admitted on 07/30. He was found to have leukocytosis of 22, creatinine normal, alkphos 437, CEA 70, PCT 5.39. Blood cultures 07/30 grew MSSA and CoNS not lugdenensis. CT abdomen and pelvis showed masslike area of soft tissue prominence within the cecum and ileocecal valve is suggestive of a primary mucosal colonic malignancy, extensive pulmonary metastasis, metastatic lymphadenopathy of the chest and abdomen along with hepatic, omental and peritoneal carcinomatosis and large volume of abdominal pelvic ascites. He underwent paracentesis on 07/31 which revealed colonic metastatic adenocarcinoma . he was initially placed on IV zosyn. 2DE negative for vegetation on 07/30. Zosyn was discontinued on 08/04. Patient continues to have leukocytosis. ID consulted today for MSSA and leukocytosis evaluation (2) MSSA bacteremia: Plan -Repeat blood cultures today -Start Cefazolin 2G IV TID -I suspect we need to repeat 2DEcho -Leukocytosis could be secondary to malignancy however cannot rule out infectious cause at this time. I spoke Primary regarding my recommendations Thank you ID will follow Pallavi Bustos MD Infectious Diseases Consultation Information This patient recommendation is based on a telemedicine consult request which was completed asynchronously through chart review and information provided by the primary physician. The patient was not seen or examined today. The evaluation is consultative in nature and all patient care and treatment decisions can either be accepted or rejected by the patient's primary hospital-based treating physician using their own independent medical judgment for their patient. [employer]er contact information: Please call [facility] Call Center . (Phone Number For Physician Use Only) Time Spent Reviewing Chart: 31+ minutes History of Present Illness Reason for Consultation: MSSA bacteremia, leukocytosis Requesting Physician: Yenifer Mena DO Attending Physician: Yenifer Mena DO History of Present Illness 62 yo M without significant PMH was admitted to [facility] with abdominal distention and abdominal pain, found to have metastatic colon cancer. Infectious diseases consulted for bacteremia and ongoing leukocytosis. Patient was admitted on 07/30. He was found to have leukocytosis of 22, creatinine normal, alkphos 437, CEA 70, PCT 5.39. Blood cultures 07/30 grew MSSA and CoNS not lugdenensis. CT abdomen and pelvis showed masslike area of soft tissue prominence within the cecum and ileocecal valve is suggestive of a primary mucosal colonic malignancy, extensive pulmonary metastasis, metastatic lymphadenopathy of the chest and abdomen along with hepatic, omental and peritoneal carcinomatosis and large volume of abdominal pelvic ascites. He underwent paracentesis on 07/31 which revealed colonic metastatic adenocarcinoma . he was initially placed on IV zosyn. 2DE negative for vegetation on 07/30. Zosyn was discontinued on 08/04. Patient continues to have leukocytosis. ID consulted today for MSSA and leukocytosis evaluation Allergies Allergy/AdvReac Type Severity Reaction Status Date / Time No Known Allergies Allergy Unverified 07/30/22 19:24 Home Medications Medication Instructions Recorded Confirmed Type naproxen sodium 220 mg tablet 220 mg PO BID PRN Pain 07/30/22 07/30/22 History (Aleve) Patient History Medical History Abdominal pain, generalized Advanced care planning/counseling discussion Cancer related pain Palliative care by specialist Surgical History Ileostomy in place (08/02/22) p Laparoscopic Loop Ilieostomy(Not Applicable) - Reese Domingo DO s Infusaport Insertion(Left) - Arie Ramon MD, FACS Port-A-Cath in place (08/02/22) p Laparoscopic Loop Ilieostomy(Not Applicable) - Reese Domingo DO s Infusaport Insertion(Left) - Arie Ramon MD, FACS Social History Smoking Status: Former smoker Hx Alcohol Use: Yes Hx Substance Use: No Communication Ability: Effective Head Of Precision Targeting Required: No Beliefs That Will Affect Care: Spiritual Current Living Situation: Alone Feels Safe at Home: Yes Assistive Devices: None Results & Data Vital Signs (Past 12 Hours) Vital Signs Temp Pulse Pulse Pulse Pulse Pulse Resp 08/06/22 11:24 36.7 C 100 H 18 08/06/22 11:20 36.4 C L 111 H 19 08/06/22 08:00 08/06/22 09:19 102 H 120 H 117 H 107 H 08/06/22 07:26 36.4 C L 89 20 08/06/22 01:14 36.6 C 84 18 Resp Resp Resp Resp BP BP Pulse Ox 08/06/22 11:24 146/84 H 93 08/06/22 11:20 96/65 L 92 08/06/22 08:00 08/06/22 09:19 22 26 H 22 22 08/06/22 07:26 104/73 93 08/06/22 01:14 112/71 90 Pulse Ox Pulse Ox Pulse Ox Pulse Ox O2 Del Method O2 Flow Rate O2 Flow Rate 08/06/22 11:24 Nasal Cannula 4 08/06/22 11:20 Oxymask 2 08/06/22 08:00 Oxymask 4 08/06/22 09:19 90 90 91 86 L 2 08/06/22 07:26 Oxymask 5 08/06/22 01:14 Oxymask 5 O2 Flow Rate O2 Flow Rate 08/06/22 11:24 08/06/22 11:20 08/06/22 08:00 08/06/22 09:19 2 2 08/06/22 07:26 08/06/22 01:14 Laboratory Results Laboratory Results - last 48 hr 08/05/22 08/05/22 08/06/22 05:33 05:33 05:23 WBC 23.87 H 22.31 H RBC 3.68 L 3.66 L Hgb 10.7 L 10.6 L Hct 32.8 L 32.7 L MCV 89.1 89.3 MCH 29.1 29.0 MCHC 32.6 32.4 RDW Std Deviation 41.4 42.8 RDW Coeff of Andrew 12.8 13.1 Plt Count 295 284 MPV 10.1 10.4 Immature Gran % (Auto) 0.8 0.9 Neut % (Auto) 91.7 91.7 Lymph % (Auto) 3.9 3.3 Barbour % (Auto) 3.3 3.9 Eos % (Auto) 0.2 0.1 Baso % (Auto) 0.1 0.1 Neut # (Auto) 21.87 H 20.45 H Lymph # (Auto) 0.94 L 0.73 L Barbour # (Auto) 0.79 H 0.88 H Eos # (Auto) 0.05 0.03 Baso # (Auto) 0.03 0.03 Immature Gran # (Auto) 0.19 0.19 Sodium 134 L Potassium 3.7 Chloride 94 L Carbon Dioxide 36 H Anion Gap 4 BUN 16 Creatinine 0.70 Est Cr Clr Drug Dosing 110.1 Est GFR ( Amer) 115.6 Est GFR (Non-Af Amer) 99.7 BUN/Creatinine Ratio 22.9 H Glucose 128 H Calcium 7.3 L Magnesium 1.9 Total Bilirubin 0.4 AST 40 H ALT 25 Alkaline Phosphatase 245 H Total Protein 4.6 L Albumin 2.1 L Globulin 2.5 Albumin/Globulin Ratio 0.8 L 08/06/22 05:23 WBC RBC Hgb Hct MCV MCH MCHC RDW Std Deviation RDW Coeff of Andrew Plt Count MPV Immature Gran % (Auto) Neut % (Auto) Lymph % (Auto) Barbour % (Auto) Eos % (Auto) Baso % (Auto) Neut # (Auto) Lymph # (Auto) Barbour # (Auto) Eos # (Auto) Baso # (Auto) Immature Gran # (Auto) Sodium 133 L Potassium 3.4 L Chloride 95 L Carbon Dioxide 34 H Anion Gap 4 BUN 15 Creatinine 0.60 Est Cr Clr Drug Dosing 128.4 Est GFR ( Amer) 123.2 Est GFR (Non-Af Amer) 106.3 BUN/Creatinine Ratio 25.0 H Glucose 112 H Calcium 7.3 L Magnesium 1.8 Total Bilirubin 0.4 AST 47 H ALT 27 Alkaline Phosphatase 259 H Total Protein 4.7 L Albumin 2.2 L Globulin 2.5 Albumin/Globulin Ratio 0.9 Microbiology 08/02/22 17:57 Peritoneal Fluid Gram Stain - Final 08/02/22 17:57 Peritoneal Fluid Aerobic and Anaerobic Culture - Preliminary No growth to date. 07/31/22 14:59 Blood Aerobic Blood Culture - Final No growth in Aerobic bottle after 5 days. 07/31/22 14:59 Blood Anaerobic Blood Culture - Final No growth in Anaerobic bottle after 5 days. 07/31/22 14:59 Blood Aerobic Blood Culture - Final No growth in Aerobic bottle after 5 days. 07/31/22 14:59 Blood Anaerobic Blood Culture - Final No growth in Anaerobic bottle after 5 days. 07/31/22 Unknown Peritoneal Fluid Gram Stain - Final 07/31/22 Unknown Peritoneal Fluid Aerobic and Anaerobic Culture - Final No growth 07/30/22 17:25 Blood Aerobic Blood Culture - Final No growth in Aerobic bottle after 5 days. 07/30/22 17:25 Blood Anaerobic Blood Culture - Final No growth in Anaerobic bottle after 5 days. 08/02/22 17:00 Urine,Indwelling Cath Urine Culture - Final No growth - less than 1,000 colonies/mL. 07/30/22 17:25 Blood Aerobic Blood Culture - Final Staphylococcus aureus Coag neg staph not lugdunensis 07/30/22 17:25 Blood Anaerobic Blood Culture - Final Staphylococcus aureus Coag neg staph not lugdunensis Medications Administered Current Inpatient Medications Acetaminophen (Acetaminophen 325 Mg Tab) 650 mg PO Q4H PRN PRN Reason: Pain or Fever Stop: 09/03/22 21:37 Albuterol (Albut/Ipratrop 3mg/0.5mg Neb 3 Ml Vial) 3 ml INH Q6R PRN PRN Reason: SOB/wheezing Stop: 09/04/22 18:59 Enoxaparin Sodium (Enoxaparin Inj 40 Mg/0.4 Ml Syr) 40 mg SQ QAM [facility] Stop: 09/04/22 08:59 Last Admin: 08/06/22 08:23 Dose: 40 mg Fluticasone Furoate (Fluticasone Furoate 200mcg 14 Puffs/Inhaler) 1 puffs INH DAILY [facility] Stop: 09/05/22 08:59 Last Admin: 08/06/22 08:23 Dose: 1 puffs Cefazolin Sodium (Ancef 2000mg) 2,000 mg in 15 mls @ 3.75 mls/min IV Q8H [facility] Stop: 08/20/22 10:14 Last Admin: 08/06/22 10:57 Dose: 3.75 mls/min Morphine Sulfate (Morphine Sulfate 4 Mg/Ml 1 Ml Carp\Vial) 4 mg IV Q3H PRN PRN Reason: Pain (7,8,9,10) Stop: 08/13/22 21:09 Last Admin: 08/03/22 18:15 Dose: 4 mg Morphine Sulfate (Morphine Sulfate 2 Mg/Ml Carp) 2 mg IV Q3H PRN PRN Reason: Pain (4,5,6) & Pre PT Stop: 08/13/22 21:09 Last Admin: 08/03/22 05:25 Dose: 2 mg Ondansetron HCl (Ondansetron Inj 2 Mg/Ml 2 Ml Vial) 4 mg IV Q6H PRN PRN Reason: Nausea Stop: 08/29/22 21:09 Polyethylene Glycol (Polyethylene (Miralax) 17 Gm Pack) 17 gm PO DAILY PRN PRN Reason: Constipation Stop: 09/03/22 21:37 Potassium Chloride (Potassium Chloride 20 Meq/15 Ml Udc) 40 meq PO QAM [facility] Stop: 09/05/22 08:59 Last Admin: 08/06/22 08:35 Dose: 40 meq Umeclidinium/Vilanterol (Umeclidinium/Vilanterol 62.5/25mcg 7 Puffs/Inhaler) 1 puffs INH DAILY [facility] Stop: 09/04/22 16:14 Last Admin: 08/06/22 08:23 Dose: 1 puffs (1) Colon cancer Colon location: unspecified part of colon Qualified Code(s): C18.9 - Malignant neoplasm of colon, unspecified
--- NOTE | 2022-08-06 13:01 | Surgery Progress Note ---
This was discussed with the PA. I agree with the plan. Date of Service August 06, 2022 Assessment & Plan (1) Ileostomy in place: Plan: Patient s/p mediport placement and diverting loop ileostomy no abdominal complaints. all incisions c/d/i without evidence of infection he is tolerating a low fiber diet. ostomy is viable and functioning well WBC 22 which remains elevated...ID has been consulted and recommending obtain blood cultures. Pt afebrile continue low fiber diet. when medically stable for discharge f/u in clinic with Dr. Domingo in 2 weeks Admission and Anticipated Discharge Date Admission Date: July 30, 2022 Subjective Patient reports feeling fairly well overall. Tolerating a diet, no abdominal pain/n/v. Ileostomy functioning. Tells me he is walking the halls. Physical Exam Physical Exam: awake/alert, no distress Respiratory: on 4L supplemental O2 Chest (Breasts): Additional Comments: mediport incision c/d/i without signs of infection Gastrointestinal (Abdomen): Inspection/Auscultation: + abdomen distended (softly distended, unchanged) and + abdominal surgical incision (c/d/i with skin glue, no signs of infection) ostomy viable and functioning well Results & Data Vital Signs (Past 12 Hours) Vital Signs Temp Pulse Pulse Pulse Pulse Pulse Resp 08/06/22 11:24 36.7 C 100 H 18 08/06/22 11:20 36.4 C L 111 H 19 08/06/22 08:00 08/06/22 09:19 102 H 120 H 117 H 107 H 08/06/22 07:26 36.4 C L 89 20 08/06/22 01:14 36.6 C 84 18 Resp Resp Resp Resp BP BP Pulse Ox 08/06/22 11:24 146/84 H 93 08/06/22 11:20 96/65 L 92 08/06/22 08:00 08/06/22 09:19 22 26 H 22 22 08/06/22 07:26 104/73 93 08/06/22 01:14 112/71 90 Pulse Ox Pulse Ox Pulse Ox Pulse Ox O2 Del Method O2 Flow Rate O2 Flow Rate 08/06/22 11:24 Nasal Cannula 4 08/06/22 11:20 Oxymask 2 08/06/22 08:00 Oxymask 4 08/06/22 09:19 90 90 91 86 L 2 08/06/22 07:26 Oxymask 5 08/06/22 01:14 Oxymask 5 O2 Flow Rate O2 Flow Rate 08/06/22 11:24 08/06/22 11:20 08/06/22 08:00 08/06/22 09:19 2 2 08/06/22 07:26 08/06/22 01:14 PG Care Time/CCT Total # of Minutes Spent Total Time Spent with Patient: Total time spent is greater than 50% in coordination of care (as documented) at patient's floor/unit and/or counseling patient: Coding Level of Care Code 56018 Post Operative Follow-Up Diagnoses Ileostomy in place Z93.2
[2022-08-07] MEDS: ceFAZolin 2000MG 2,000 MG/15 ML SYR IV SCH ×3 (01:15→18:14)
[2022-08-07] MEDS: ACETAMINOPHEN 325 MG TAB PO PRN ×2 (04:16→21:04)
[2022-08-07 06:22] LABS: Hematocrit (blood only) 32.2 % (42.0-52.0); Hemoglobin 10.6 g/dl (14.0-18.0); Mean Corpuscular Hgb Conc 32.9 g/dL (32.0-36.0); Mean Corpuscular Volume 88.2 fL (80.0-100.0); Mean Platelet Volume 10.3 fL (9.4-12.4); Platelet Count 278 K/uL (130-400); RDW Coefficient of Variation 13.3 % (11.5-14.5); RDW Standard Deviation 42.7 fL (36.4-46.3); Red Blood Count 3.65 M/uL (4.70-6.10); White Blood Count 23.86 K/ul (4.8-10.8)
[2022-08-07 06:38] LABS: Albumin Globulin Ratio 0.8 (0.9-2); Albumin Level 2.3 gm/dl (3.4-5.0); BUN Creatinine Ratio 30.5 (10-20); Bilirubin,Total 0.3 mg/dl (0.2-1.0); Calcium 7.5 mg/dl (8.6-10.3); Creatinine Clr Calc Pharmacy 130.6 ml/min; Globulin 2.8 gm/dl (2.5-4.0); Magnesium 1.9 mg/dl (1.7-2.4); Potassium 3.9 mmol/L (3.5-5.1); Total Protein 5.1 gm/dl (6.0-8.3)
[2022-08-07 06:53] LABS: Basophils # (auto) 0.03 K/uL (0-0.2); Basophils % (auto) 0.1 %; Immature Granulocytes # (auto) 0.17 K/uL (0.01-0.20); Immature Granulocytes % (auto) 0.7 %; Lymphocytes # (auto) 0.65 K/uL (1.2-3.4); Lymphocytes % (auto) 2.7 %; Monocytes % (auto) 4.6 %; Neutrophils # (auto) 21.91 K/uL (1.40-6.50); Neutrophils % (auto) 91.9 %
--- NOTE | 2022-08-07 08:10 | Hospitalist Progress Note ---
Date of Service August 07, 2022 Assessment & Plan (1) SBO (small bowel obstruction): Plan: 62-year-old male with no known past medical history and no PCP (has not seen a doctor since childhood) who p/w abdominal pain and swelling and was found to have metastatic colon cancer with subsequent SBO. Narrowing of the ileocecal valve with resultant upstream small bowel obstruction secondary to soft tissue prominence within the cecum and ileocecal valve suggestive of primary mucosal colonic malignancy General surgery consulted: s/p diverting ileostomy 08/02, healing well and will need outpatient follow-up (2 weeks post-op) Tolerating low fiber diet without issues K 3.9, continue KCl elixir Zosyn discontinued 08/04, WBC count elevation could be stress response from cancer however with MSSA + BCx for now need to assume true positive and treat with cefazolin As needed antiemetics and analgesics CM assisting with several needs including need for PCP, oxygen on discharge, IV Abx, and lastly anticipate need for skilled rehab for IV antibiotics and therapy (2) Colon cancer: Plan: Metastatic colon cancer with secondary malignant neoplasm of liver and lungs, with carcinomatosis CEA elevated at 70 LFTs elevated from liver mets CT Chest with extensive metastatic pulm disease Soft tissue prominence within the cecum and ileocecal valve 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 Díaz, appreciate her recs this admission) PT and OT evaluations ordered for dispo planning, and did fairly well requiring 2LNC with rest and activity today (3) Pulmonary metastases: Plan: With acute respiratory failure with hypoxia - tolerating supplemental oxygen CT Chest with innumerable mets from colon cancer, CTA Chest 08/04 without evidence of PNA or PE Mets are suspected cause of hypoxia, multifactorial with suspected underlying undiagnosed COPD given for decades smoking history, patient quit 1 week ago and does not intend to resume smoking Continue ICS/LABA/LAMA while admitted, to continue on discharge with follow-up pulmonary function testing Two-step prior to discharge if returning home (4) MSSA bacteremia: Plan: 07/30 BCx with Staph epidermidis and MSSA, vaguely possible it could be a contaminant, but I am concerned at this point given ongoing leukocytosis and had port placed for future chemo, that this is likely a true infection Fortunately repeat BCx 07/31 negative, BCx 08/06 no growth to date Echo on 07/31 without vegetation, repeat 08/07 also no vegetation, may need JULIANE cardiology consulted Infectious disease consulted and appreciate recommendations, anticipate 4 weeks of IV antibiotics as long as no other source of infection is determined that wou ld change to this care plan Case management to assist given patient's low health literacy, multiple antibiotic infusions daily, lives alone, no primary care provider (5) Ascites: Plan: 2/2 metastatic disease Paracentesis performed and 6L removed on admission, abdomen does appear more distended today and CTAP with large volume ascites, repeat paracentesis possibly tomorrow if able to arrange this Peritoneal fluid analysis on admission with elevated WBCs, Gram stain no growth, cytology positive for adenocarcinoma. Will repeat peritoneal differential and Gram stain given ongoing leukocytosis (6) Leukocytosis: Plan: Most suspicious that WBC count elevation is due to malignancy, however also treating for MSSA bacteremia as described above, may need JULIANE, and repeat CBC AP today with some nonspecific enteritis but no other findings Repeat peritoneal fluid analysis to be performed as described above (7) Demand ischemia of myocardium: Plan: Trop mildly elevated at 31 and down to 28 on repeat check, and ECG with old anterior infarct With LE edema on exam which is likely related to ascites and peritoneal carcinomatosis, checked ECHO normal EF, no WMA Continue tele monitoring (8) Hyponatremia: Plan: Mild, Na 133 today, lowest was 131, with noted hypoalbuminemia, does not appear dry, no longer receiving IVF or IV diuresis Continue to monitor (9) Peripheral edema: Plan: Likely 2/2 abdominal mets, hypoalbuminemia from cancer Dopplers venous LEs bilat negative ECHO without evidence of systolic or diastolic dysfunction ROXI jacobs Plan DVT proph -hold Lovenox for impending paracentesis, resume following Patient remains FULL CODE at this time Admission and Anticipated Discharge Date Admission Date: July 30, 2022 Subjective Patient without any acute events overnight, no shortness of breath on oxy mask, no complaints of chest pain or abdominal pain. No nausea or vomiting. Review of Systems Review of Systems: All systems reviewed & are unremarkable except as noted in Subjective Physical Exam Physical Exam: awake/alert, no distress Constitutional: + thin Respiratory: normal respiratory effort, lungs clear to auscultation wearing Oxymask 3L, lungs clear to auscultation Cardiovascular: RRR, no murmur, no edema Chest (Breasts): Additional Comments: mediport incision healing well no surrounding erythema Gastrointestinal (Abdomen): normal bowel sounds, soft, nontender, no hepatosplenomegaly Inspection/Auscultation: + abdomen distended (Moderate) and + abdominal surgical incision (c/d/i) ostomy beefy red, healthy appearing Skin: no rashes, warm and dry Psychiatric: A+Ox3, euthymic affect Results & Data Results & Data Vital Signs (Past 12 Hours) Vital Signs Temp Pulse Resp BP Pulse Ox O2 Del Method O2 Flow Rate 08/07/22 08:02 36.2 C L 71 18 117/73 91 Oxymask 4 08/07/22 03:00 36.5 C 101 H 21 103/73 93 Oxymask 4 08/06/22 22:00 36.6 C 16 102/71 90 Oxymask 2 08/06/22 21:00 Oxymask 2 PG Care Time/CCT Total # of Minutes Spent Total Time Spent with Patient: Total time spent is greater than 50% in coordination of care (as documented) at patient's floor/unit and/or counseling patient: Coding Level of Care Code 05714 SUB INP/OBS CARE 3/50MIN Diagnoses SBO (small bowel obstruction) K56.609 Colon cancer C18.9 Colon location: unspecified part of colon Pulmonary metastases C78.01; C78.02 Laterality: bilateral MSSA bacteremia R78.81; B95.61 Ascites R18.8 Leukocytosis D72.829 Demand ischemia of myocardium I24.8 Hyponatremia E87.1 Peripheral edema R60.9 (2) Colon cancer Colon location: unspecified part of colon Qualified Code(s): C18.9 - Malignant neoplasm of colon, unspecified (3) Pulmonary metastases Laterality: bilateral Qualified Code(s): C78.01 - Secondary malignant neoplasm of right lung; C78.02 - Secondary malignant neoplasm of left lung
[2022-08-07] MEDS: UMECLIDINIUM/VILANTEROL 62.5/25MCG 7 PUFFS/INHALER INH SCH (08:16)
[2022-08-07] MEDS: ENOXAPARIN INJ 40 MG/0.4 ML SYR SQ SCH (08:16)
[2022-08-07] MEDS: FLUTICASONE FUROATE 200MCG 14 PUFFS/INHALER INH SCH (08:16)
[2022-08-07] MEDS: POTASSIUM CHLORIDE 20 MEQ/15 ML UDC PO SCH (08:17)
--- NOTE | 2022-08-07 08:29 | Surgery Progress Note ---
Patient was seen with the surgical PA. Blood cultures are now revealing no growth. Agree with the plan. Date of Service August 07, 2022 Assessment & Plan (1) Ileostomy in place: Plan: Patient s/p mediport placement and diverting loop ileostomy no abdominal complaints. all incisions c/d/i without evidence of infection he is tolerating a low fiber diet. ostomy is viable and functioning well WBC 23 which remains elevated...ID has been consulted and recommending obtain blood cultures, they remain pending continue low fiber diet. when medically stable for discharge f/u in clinic with Dr. Domingo in 2 weeks Admission and Anticipated Discharge Date Admission Date: July 30, 2022 Subjective Patient feeling well. Offers no complaints. Tolerating a diet. No nausea/vomiting. + stool from ostomy Physical Exam Physical Exam: awake/alert, no distress Gastrointestinal (Abdomen): Inspection/Auscultation: + abdomen distended (softly distended, unchanged) Percussion/Palpation: abdomen soft; abdomen nontender ostomy viable and functioning Results & Data Vital Signs (Past 12 Hours) Vital Signs Temp Pulse Resp BP Pulse Ox O2 Del Method O2 Flow Rate 08/07/22 08:02 36.2 C L 71 18 117/73 91 Oxymask 4 08/07/22 03:00 36.5 C 101 H 21 103/73 93 Oxymask 4 08/06/22 22:00 36.6 C 16 102/71 90 Oxymask 2 08/06/22 21:00 Oxymask 2 PG Care Time/CCT Total # of Minutes Spent Total Time Spent with Patient: Total time spent is greater than 50% in coordination of care (as documented) at patient's floor/unit and/or counseling patient: Coding Level of Care Code 19155 Post Operative Follow-Up Diagnoses Ileostomy in place Z93.2
[2022-08-07] MEDS ORDERED: POTASSIUM CHLORIDE CRTAB 20 MEQ TABCR PO SCH (09:00)
[2022-08-07] MEDS: POTASSIUM CHLORIDE 10 MEQ TABCR PO SCH (09:12)
--- NOTE | 2022-08-07 14:33 | XCELERA ---
[id number] \\[id number]
[2022-08-07] MEDS ORDERED: OPTIRAY 350 100ml IV ONE (15:13)
--- NOTE | 2022-08-07 16:14 | CT Scan Report ---
ABDOMEN AND PELVIS CT WITH IV CONTRAST CT DOSE: 674.38 mGycm HISTORY: Acute generalized abdominal pain with leukocytosis reported malignancy ongoing leukocytosis malignancy eval for ?absess TECHNIQUE: Multiaxial CT images of the abdomen and pelvis were performed following the IV administrat ion of 85 cc of Optiray, A dose lowering technique was utilized adhering to the principles of ALARA. COMPARISON STUDY: CTA chest of same day, chest radiograph 08/02/2022, CT abdomen and pelvis 07/30/2022 FINDINGS: Extensive innumerable pulmonary metastatic lesions throughout the imaged lung valentino measur ing up to approximately 2 cm with intralobular septal thickening suggestive of associated lymphangiti c carcinomatosis. Development of small pleural effusions with mild dependent bibasilar consolidation. . Metastatic borderline enlarged cardiophrenic lymph nodes. The spleen, and adrenal glands are unremarkable. The pancreatic duct measures the upper limits of nor mal at 4 mm. No discrete pancreatic mass identified. There are several scattered hepatic metastasis m easuring up to approximately 4.6 cm, stable from prior. mild marginal nodularity of the liver may rep resent cirrhosis versus pseudocirrhosis. Patent portal vein. Unremarkable gallbladder. No hydronephro sis. Subcentimeter hypodense focus of the interpolar left kidney is too small to characterize. Decomp ressed urinary bladder with wall thickening. Prostamegaly. Atherosclerosis of the aorta and branch ve ssels. Pathologic lymphadenopathy is again noted within the periportal/pericaval distributions and re troperitoneum. Left aortic index lymph node measures 2.9 x 2.2 cm on image 260, stable. There is moderate fecal retention within the rectum. Mild colonic diverticulosis. Probable serosal im plants of the transverse colon. Moderate colonic fecal retention. There is a 4.2 x 2.0 x 5.0 cm focus of masslike thickening in the cecum and ileocecal valve with circumferential terminal ileal wall thi ckening. No bowel obstruction. Several loops of small bowel to lower demonstrate circumferential wall thickening within the abdomen and pelvis. Interval postoperative changes of right lower quadrant ile ostomy. There is a large amount of abdominal pelvic ascites. Moderate peritoneal/omental carcinomatos is. The visualized appendix appears noninflamed. Moderate generalized body wall edema. Unremarkable s oft tissues. No acute fracture or destructive bone lesion identified. IMPRESSION: 1. Interval right lower quadrant ileostomy with resolution of the previously noted small bowel obstru ction. 2. Mass within the cecum/ileocecal valve is again noted suggestive of primary colonic malignancy. 3. Extensive pulmonary metastasis is with metastatic lymphadenopathy of the chest and abdomen along w ith hepatic, omental and peritoneal carcinomatosis has not significantly changed compared to the stud y dated 07/30/2022. 4. Large volume of abdominal pelvic ascites. 5. Small pleural effusions with mild dependent bibasilar consolidation . 6. Several loops of small bowel demonstrate circumferential wall thickening . Correlate clinically to exclude a nonspecific enteritis. 7. Additional findings as above. ACT 112: Negative or not required by law. The above report was generated using voice recognition software. It may contain grammatical, syntax o r spelling errors. Electronically signed by: Gurdeep Ventura M.D. 08/07/2022 4:12 PM
--- NOTE | 2022-08-07 18:04 | Infectious Disease Progress Nt ---
Date of Service August 07, 2022 Assessment & Plan (1) Colon cancer: Plan: 1.MSSA bacteremia 2. Leukocytosis 3. New diagnosis of Stage IV colon cancer 62 yo M without significant PMH was admitted to [facility] with abdominal distention and abdominal pain, found to have metastatic colon cancer. Infectious diseases consulted for bacteremia and ongoing leukocytosis. Patient was admitted on 07/30. He was found to have leukocytosis of 22, creatinine normal, alkphos 437, CEA 70, PCT 5.39. Blood cultures 07/30 grew MSSA and CoNS not lugdenensis. CT abdomen and pelvis showed masslike area of soft tissue prominence within the cecum and ileocecal valve is suggestive of a pr imary mucosal colonic malignancy, extensive pulmonary metastasis, metastatic lymphadenopathy of the chest and abdomen along with hepatic, omental and peritoneal carcinomatosis and large volume of abdominal pelvic ascites. He underwent paracentesis on 07/31 which revealed colonic metastatic adenocarcinoma . he was initially placed on IV zosyn. 2DE negative for vegetation on 07/30. Zosyn was discontinued on 08/04. Cefazolin started on 08/06. Patient continues to have leukocytosis. ID consulted today for MSSA and leukocytosis evaluation Patient cleared his blood cultures on 07/31 but Abx stopped on 08/04. His port was placed on 08/02. It is very unlikely the bacteria seeded the port however given he was off antibiotics 48 hours it would not be impossible. I suspect his elevated WBC is d/t malignancy but would recommend CT AP and JULIANE to ensure this is not the bacteremia, especially since he is going to start chemotherapy on 08/09 per his report. (2) MSSA bacteremia: Plan -Repeat blood cultures from 08/06 -Start Cefazolin 2G IV TID -Leukocytosis could be secondary to malignancy however cannot rule out infectious cause at this time rec JULIANE and repeat CT AP -If JULIANE is negative and no infection found would recommend treatment x 4 weeks total from first negative blood culture, with repeat blood cultures in 3-5 days after to ensure no seeding of bacteremia. He may proceed to chemotherapy from ID standpoint. I spoke Primary regarding my recommendations Thank you ID will follow Pallavi Bustos MD Infectious Diseases Admission and Anticipated Discharge Date Admission Date: July 30, 2022 Subjective Subsequent visit was provided via telemedicine using two-way real-time interactive telecommunication between the patient and the telemedicine provider. For the duration of the visit, the provider was performing the assessment from a different facility than the patient. This includesuse of bluetooth stethoscope forauscultationperformed by the telepresenter that the telemedicine provider can hear if described in the physical exam. Flasher Adjuster contact information: Please call [facility] . (Phone Number For Physician Use Only) After establishing a telemedicine visit, patient was: Patient was verified with two unique identifiers, Patient/authorized rep acknowledged consent and understanding and Gave permission to continue telehealth session Time Spent with Patient: Subsequent => 35 min Patient has no complaints No back pain, fevers, abdominal pain Port L chest Physical Exam Physical Exam: NAD L Chest port c/d/i Results & Data Vital Signs (Past 12 Hours) Vital Signs Temp Pulse Resp BP Pulse Ox O2 Del Method O2 Flow Rate 08/07/22 15:42 36.8 C 108 H 18 103/73 91 Oxymask 3 08/07/22 12:03 36.4 C L 66 20 101/69 98 Oxymask 4 08/07/22 08:00 Nasal Cannula, Oxymask 4 08/07/22 08:02 36.2 C L 71 18 117/73 91 Oxymask 4 Laboratory Results Laboratory Results - last 48 hr 08/06/22 08/06/22 08/07/22 05:23 05:23 05:40 WBC 22.31 H 23.86 H RBC 3.66 L 3.65 L Hgb 10.6 L 10.6 L Hct 32.7 L 32.2 L MCV 89.3 88.2 MCH 29.0 29.0 MCHC 32.4 32.9 RDW Std Deviation 42.8 42.7 RDW Coeff of Andrew 13.1 13.3 Plt Count 284 278 MPV 10.4 10.3 Immature Gran % (Auto) 0.9 0.7 Neut % (Auto) 91.7 91.9 Lymph % (Auto) 3.3 2.7 Sac % (Auto) 3.9 4.6 Eos % (Auto) 0.1 0.0 Baso % (Auto) 0.1 0.1 Neut # (Auto) 20.45 H 21.91 H Lymph # (Auto) 0.73 L 0.65 L Sac # (Auto) 0.88 H 1.10 H Eos # (Auto) 0.03 0.00 Baso # (Auto) 0.03 0.03 Immature Gran # (Auto) 0.19 0.17 Sodium 133 L Potassium 3.4 L Chloride 95 L Carbon Dioxide 34 H Anion Gap 4 BUN 15 Creatinine 0.60 Est Cr Clr Drug Dosing 128.4 Est GFR ( Amer) 123.2 Est GFR (Non-Af Amer) 106.3 BUN/Creatinine Ratio 25.0 H Glucose 112 H Calcium 7.3 L Magnesium 1.8 Total Bilirubin 0.4 AST 47 H ALT 27 Alkaline Phosphatase 259 H Total Protein 4.7 L Albumin 2.2 L Globulin 2.5 Albumin/Globulin Ratio 0.9 08/07/22 05:40 WBC RBC Hgb Hct MCV MCH MCHC RDW Std Deviation RDW Coeff of Andrew Plt Count MPV Immature Gran % (Auto) Neut % (Auto) Lymph % (Auto) Sac % (Auto) Eos % (Auto) Baso % (Auto) Neut # (Auto) Lymph # (Auto) Sac # (Auto) Eos # (Auto) Baso # (Auto) Immature Gran # (Auto) Sodium 133 L Potassium 3.9 Chloride 97 L Carbon Dioxide 31 Anion Gap 5 BUN 18 Creatinine 0.59 L Est Cr Clr Drug Dosing 130.6 Est GFR ( Amer) 124.0 Est GFR (Non-Af Amer) 107.0 BUN/Creatinine Ratio 30.5 H Glucose 114 H Calcium 7.5 L Magnesium 1.9 Total Bilirubin 0.3 AST 50 H ALT 25 Alkaline Phosphatase 236 H Total Protein 5.1 L Albumin 2.3 L Globulin 2.8 Albumin/Globulin Ratio 0.8 L Microbiology 08/06/22 10:51 Blood Aerobic Blood Culture - Preliminary No growth in Aerobic bottle after 24 hours. 08/06/22 10:51 Blood Anaerobic Blood Culture - Preliminary No growth in Anaerobic bottle after 24 hours. 08/06/22 10:43 Blood Aerobic Blood Culture - Preliminary No growth in Aerobic bottle after 24 hours. 08/06/22 10:43 Blood Anaerobic Blood Culture - Preliminary No growth in Anaerobic bottle after 24 hours. 08/02/22 17:57 Peritoneal Fluid Gram Stain - Final 08/02/22 17:57 Peritoneal Fluid Aerobic and Anaerobic Culture - Final No growth 07/31/22 14:59 Blood Aerobic Blood Culture - Final No growth in Aerobic bottle after 5 days. 07/31/22 14:59 Blood Anaerobic Blood Culture - Final No growth in Anaerobic bottle after 5 days. 07/31/22 14:59 Blood Aerobic Blood Culture - Final No growth in Aerobic bottle after 5 days. 07/31/22 14:59 Blood Anaerobic Blood Culture - Final No growth in Anaerobic bottle after 5 days. 07/31/22 Unknown Peritoneal Fluid Gram Stain - Final 07/31/22 Unknown Peritoneal Fluid Aerobic and Anaerobic Culture - Final No growth 07/30/22 17:25 Blood Aerobic Blood Culture - Final No growth in Aerobic bottle after 5 days. 07/30/22 17:25 Blood Anaerobic Blood Culture - Final No growth in Anaerobic bottle after 5 days. 08/02/22 17:00 Urine,Indwelling Cath Urine Culture - Final No growth - less than 1,000 colonies/mL. 07/30/22 17:25 Blood Aerobic Blood Culture - Final Staphylococcus aureus Coag neg staph not lugdunensis 07/30/22 17:25 Blood Anaerobic Blood Culture - Final Staphylococcus aureus Coag neg staph not lugdunensis (1) Colon cancer Colon location: unspecified part of colon Qualified Code(s): C18.9 - Malignant neoplasm of colon, unspecified
[2022-08-08] MEDS: ceFAZolin 2000MG 2,000 MG/15 ML SYR IV SCH ×3 (02:30→18:16)
[2022-08-08 06:36] LABS: Hematocrit (blood only) 33.3 % (42.0-52.0); Hemoglobin 10.7 g/dl (14.0-18.0); Mean Corpuscular Hemoglobin 28.9 pg (25.0-34.0); Mean Corpuscular Hgb Conc 32.1 g/dL (32.0-36.0); Mean Platelet Volume 10.4 fL (9.4-12.4); Platelet Count 297 K/uL (130-400); RDW Coefficient of Variation 13.6 % (11.5-14.5); RDW Standard Deviation 44.1 fL (36.4-46.3)
[2022-08-08 06:49] LABS: Albumin Globulin Ratio 0.8 (0.9-2); Albumin Level 2.3 gm/dl (3.4-5.0); BUN Creatinine Ratio 25.4 (10-20); Bilirubin,Total 0.3 mg/dl (0.2-1.0); Calcium 7.6 mg/dl (8.6-10.3); Creatinine Clr Calc Pharmacy 122.3 ml/min; Est GFR (African American) 120.7 ml/min; Est GFR (Non-African American) 104.1 ml/min; Globulin 2.9 gm/dl (2.5-4.0); Potassium 4.1 mmol/L (3.5-5.1); Total Protein 5.2 gm/dl (6.0-8.3)
[2022-08-08 07:04] LABS: Basophils # (auto) 0.03 K/uL (0-0.2); Basophils % (auto) 0.1 %; Eosinophils # (auto) 0.05 K/uL (0-0.50); Eosinophils % (auto) 0.2 %; Immature Granulocytes # (auto) 0.18 K/uL (0.01-0.20); Immature Granulocytes % (auto) 0.8 %; Lymphocytes # (auto) 0.65 K/uL (1.2-3.4); Lymphocytes % (auto) 2.9 %; Monocytes # (auto) 1.22 K/uL (0.11-0.59); Monocytes % (auto) 5.4 %; Neutrophils # (auto) 20.37 K/uL (1.40-6.50); Neutrophils % (auto) 90.6 %
--- NOTE | 2022-08-08 07:07 | Hospitalist Progress Note ---
Date of Service August 08, 2022 Assessment & Plan (1) MSSA bacteremia: Plan: 07/30 05/09 BCx with Staph epidermidis and MSSA; I am concerned at this point given ongoing leukocytosis and had port placed for future chemo, that this is likely a true infection Fortunately repeat BCx 07/31 negative, BCx 08/06 no growth to date JULIANE on 08/08 without evidence of vegetation Infectious disease consulted and appreciate recommendations, anticipate 4 weeks of IV antibiotics as long as no other source of infection is determined that would change to this care plan, prescription provided to case management, will need ultrasound-guided IV prior to discharge Case management to assist given patient's low health literacy, multiple antibiotic infusions daily, lives alone, no primary care provider; plan for discharge to rehab facility once medically stable and bed available (2) SBO (small bowel obstruction): Plan: Narrowing of the ileocecal valve with resultant upstream small bowel obstruction secondary to soft tissue prominence within the cecum and ileocecal valve suggestive of primary mucosal colonic malignancy General surgery consulted: s/p diverting ileostomy 08/02, healing well and will need outpatient follow-up (2 weeks post-op) Tolerating low fiber diet without issues Continue KCl elixir for hypokalemia As needed antiemetics and analgesics (3) Colon cancer: Plan: Patient has not seen a doctor in his adult life, needs PCP, case management assisting Soft tissue prominence within the cecum and ileocecal valve 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, liver, omentum, peritoneum Cancer is new diagnosis -- patient had never had screening colonoscopy performed Metastatic colon cancer with secondary malignant neoplasm of liver and lungs, with carcinomatosis CEA elevated at 70 LFTs elevated from liver mets CT Chest with extensive metastatic pulm disease Ascites cytology confirms adenocarcinoma of the colon, with full path pending and Oncology consulted, to initiate treatment once antibiotics have completed for MSSA bacteremia Consult oncology appreciated- port placed by surgery this admission for palliative chemo when able PT and OT evaluations ongoing for dispo planning (4) Pulmonary metastases: Plan: With acute respiratory failure with hypoxia - tolerating supplemental oxygen CT Chest with innumerable mets from colon cancer, CTA Chest 08/04 without evidence of PNA or PE Mets are suspected cause of hypoxia, multifactorial with suspected underlying undiagnosed COPD given for decades smoking history, patient quit 1 week ago and does not intend to resume smoking Continue ICS/LABA/LAMA while admitted, to continue on discharge with follow-up pulmonary function testing Two-step prior to discharge if returning home, however more likely will go to rehab on discharge (5) Ascites: Plan: 2/2 metastatic disease Paracentesis performed and 6L removed on admission, repeat paracentesis 08/09 for large volume ascites on repeat CTAP Peritoneal fluid analysis on admission with elevated WBCs, Gram stain no growth, cytology positive for adenocarcinoma. Will repeat peritoneal differential and Gram stain given ongoing leukocytosis (6) Leukocytosis: Plan: Continues to have elevated WBC count, 22.50 on 08/08 Most suspicious that WBC count elevation is due to malignancy, however also treating for MSSA bacteremia as described above Repeat peritoneal fluid analysis to be performed as described above (7) Demand ischemia of myocardium: Plan: Trop mildly elevated at 31 and down to 28 on repeat check, and ECG with old anterior infarct With LE edema on exam which is likely related to ascites and peritoneal carcinomatosis, checked ECHO normal EF, no WMA Continue tele monitoring (8) Hyponatremia: Plan: Continue to monitor, sodium on 08/08 of 136 (9) Peripheral edema: Plan: Likely 2/2 abdominal mets, hypoalbuminemia from cancer Dopplers venous LEs bilat negative ECHO without evidence of systolic or diastolic dysfunction ROXI jacobs Plan DVT proph -hold Lovenox for impending paracentesis, resume following Patient remains FULL CODE at this time Admission and Anticipated Discharge Date Admission Date: July 30, 2022 Subjective Patient without any acute events overnight. Has had some secretions since having his JULIANE, no complaints of shortness of breath. Review of Systems Review of Systems: All systems reviewed & are unremarkable except as noted in Subjective Physical Exam Physical Exam: awake/alert, no distress Constitutional: + thin Respiratory: normal respiratory effort, lungs clear to auscultation wearing Oxymask 3L, lungs clear to auscultation Cardiovascular: RRR, no murmur, no edema Chest (Breasts): Additional Comments: mediport incision healing well no surrounding erythema Gastrointestinal (Abdomen): normal bowel sounds, soft, nontender, no hepatosplenomegaly Inspection/Auscultation: + abdomen distended (Moderate) and + abdominal surgical incision (c/d/i) ostomy beefy red, healthy appearing Fluid wave from ascites Skin: no rashes, warm and dry Psychiatric: A+Ox3, euthymic affect Results & Data Results & Data Vital Signs (Past 12 Hours) Vital Signs Temp Pulse Resp BP BP Pulse Ox Pulse Ox 08/08/22 00:00 98 08/08/22 00:00 36.4 C L 89 20 110/73 90 08/07/22 20:00 08/07/22 19:31 36.7 C 99 H 20 112/67 91 O2 Del Method O2 Del Method O2 Flow Rate O2 Flow Rate 08/08/22 00:00 Nasal Cannula 2 08/08/22 00:00 Oxymask 4 08/07/22 20:00 Nasal Cannula 2 08/07/22 19:31 Oxymask PG Care Time/CCT Total # of Minutes Spent Total Time Spent with Patient: Total time spent is greater than 50% in coordination of care (as documented) at patient's floor/unit and/or counseling patient: Coding Level of Care Code 99033 SUB INP/OBS CARE 3/50MIN Diagnoses MSSA bacteremia R78.81; B95.61 SBO (small bowel obstruction) K56.609 Colon cancer C18.9 Colon location: unspecified part of colon Pulmonary metastases C78.01; C78.02 Laterality: bilateral Ascites R18.8 Leukocytosis D72.829 Demand ischemia of myocardium I24.8 Hyponatremia E87.1 Peripheral edema R60.9 (3) Colon cancer Colon location: unspecified part of colon Qualified Code(s): C18.9 - Malignant neoplasm of colon, unspecified (4) Pulmonary metastases Laterality: bilateral Qualified Code(s): C78.01 - Secondary malignant neoplasm of right lung; C78.02 - Secondary malignant neoplasm of left lung
[2022-08-08] MEDS ORDERED: BENZOCAINE/TETRACAIN/BUTAM 50 APPLN/5 GM CAN EXT ONE (07:09)
--- NOTE | 2022-08-08 07:11 | Anesthesiology Consultation ---
Date of Service August 08, 2022 Assessment & Plan (1) Encounter for pre-operative examination: Chart Review Chart Review: Acceptable Risk for Surgery and Patient NOT seen in Pre Admission Testing Consults Requested none History Surgery Operation Date: 08/02/22 11:30 Proposed Procedures p Possible Ileostomy - DO america Iazguirre Infusaport Insertion - Arie Ramon MD, FACS Operation Date: 08/08/22 07:30 Proposed Procedures p Transesophageal Echo - Moisés Grant MD Height/Weight Height: 5 ft 10 in Weight: 83.2 kg Allergies Allergy/AdvReac Type Severity Reaction Status Date / Time No Known Allergies Allergy Unverified 07/30/22 19:24 Medications Home Medications Medication Instructions Recorded Confirmed Last Taken naproxen sodium 220 mg tablet 220 mg PO BID PRN Pain 07/30/22 07/30/22 Unknown (Aleve) Active Medications Generic Name Dose Route Start Last Admin Trade Name Freq PRN Reason Stop Dose Admin Acetaminophen 650 mg 08/04/22 21:38 08/07/22 21:04 Acetaminophen 325 Mg Tab PO 09/03/22 21:37 650 mg Q4H PRN Administration Pain or Fever Enoxaparin Sodium 40 mg 08/05/22 09:00 08/07/22 08:16 Enoxaparin Inj 40 Mg/0.4 Ml Syr SQ 09/04/22 08:59 40 mg QAM DWAYNE Administration Fluticasone Furoate 1 puffs 08/06/22 09:00 08/07/22 08:16 Fluticasone Furoate 200mcg 14 Puffs/Inhaler INH 09/05/22 08:59 1 puffs DAILY DWAYNE Administration Cefazolin Sodium 2,000 mg in 15 mls @ 3.75 mls/min 08/06/22 10:15 08/08/22 02:30 Ancef 2000mg IV 08/20/22 10:14 3.75 mls/min Q8H DWAYNE Administration Morphine Sulfate 4 mg 07/30/22 21:10 08/03/22 18:15 Morphine Sulfate 4 Mg/Ml 1 Ml Carp\Vial IV 08/13/22 21:09 4 mg Q3H PRN Administration Pain (7,8,9,10) Morphine Sulfate 2 mg 07/30/22 21:10 08/03/22 05:25 Morphine Sulfate 2 Mg/Ml Carp IV 08/13/22 21:09 2 mg Q3H PRN Administration Pain (4,5,6) & Pre PT Potassium Chloride 40 meq 08/07/22 09:00 08/07/22 09:12 Potassium Chloride 10 Meq Tabcr PO 09/06/22 08:59 40 meq DAILY DWAYNE Administration Umeclidinium/Vilanterol 1 puffs 08/05/22 16:15 08/07/22 08:16 Umeclidinium/Vilanterol 62.5/25mcg 7 Puffs/Inhaler INH 09/04/22 16:14 1 puffs DAILY DWAYNE Administration NPO Date Last Intake of Fluids: 07/26/22 Time Last Intake of Fluids: 00:00 Date Last Intake of Solids: 07/26/22 Time Last Intake of Solids: 00:00 Past Medical History Medical History (Updated 08/08/22 @ 07:11 by Gibran Warner MD) Abdominal pain, generalized Advanced care planning/counseling discussion Ascites Cancer related pain Palliative care by specialist Exercise / Class Metabolic Activity III < 4 Walking/Shop/Light housework Past Surgical History Surgical History Ileostomy in place (08/02/22) p Laparoscopic Loop Ilieostomy(Not Applicable) - Reese Domingo DO s Infusaport Insertion(Left) - Arie Ramon MD, FACS Port-A-Cath in place (08/02/22) p Laparoscopic Loop Ilieostomy(Not Applicable) - DO america Izaguirre Infusaport Insertion(Left) - Arie Ramon MD, FACS Past Anesthesia History No Hx of Anesthesia Complications and No Family Hx of Anesthesia Complications History of PONV No Hx of PONV and No Hx of Motion Sickness Social History Smoking Status: Former smoker Hx Alcohol Use: Yes Hx Substance Use: No Physical Exam Vital Signs Last Vital Signs Temp 36.4 C L 08/08/22 00:00 Pulse 89 08/08/22 00:00 Resp 20 08/08/22 00:00 BP 110/73 08/08/22 00:00 Pulse Ox 98 08/08/22 00:00 O2 Del Method Nasal Cannula 08/08/22 00:00 O2 Flow Rate 2 04/05/23 00:00 Testing Laboratory Results 08/08/22 05:58 08/08/22 05:58 PT 10.9 Seconds (9.0-12.0) 07/30/22 14:15 INR 1.0 (0.9-1.1) 07/30/22 14:15 APTT 25.9 Seconds (21.0-31.0) 07/30/22 17:20 Urine Color Dark Yellow 07/31/22 00:00 Urine Appearance Clear (Clear) 07/31/22 00:00 Urine pH 5.0 (4.5-7.5) 07/31/22 00:00 Ur Specific [place] > 1.045 (1.000-1.030) H 07/31/22 00:00 Urine Protein 1+ (Negative) H 07/31/22 00:00 Urine Glucose (UA) Negative (Negative) 07/31/22 00:00 Urine Ketones 1+ (Negative) H 07/31/22 00:00 Urine Nitrite Negative (Negative) 07/31/22 00:00 Ur Leukocyte Esterase Negative (Negative) 07/31/22 00:00 Urine WBC (Auto) 1-5 /hpf (0-5) 07/31/22 00:00 Urine RBC (Auto) 0-4 /hpf (0-4) 07/31/22 00:00 U Hyaline Cast (Auto) 5-10 /lpf (0-5) H 07/31/22 00:00 U Epithel Cells (Auto) 10-20 /lpf (0-5) H 07/31/22 00:00 Urine Bacteria (Auto) Negative (Negative) 07/31/22 00:00 08/06/22 10:51 Aerobic Blood Culture - Preliminary Blood No growth in Aerobic bottle after 24 hours. Anaerobic Blood Culture - Preliminary No growth in Anaerobic bottle after 24 hours. 08/06/22 10:43 Aerobic Blood Culture - Preliminary Blood No growth in Aerobic bottle after 24 hours. Anaerobic Blood Culture - Preliminary No growth in Anaerobic bottle after 24 hours. 08/02/22 17:57 Gram Stain - Final Peritoneal Fluid Aerobic and Anaerobic Culture - Final No growth 07/31/22 14:59 Aerobic Blood Culture - Final Blood No growth in Aerobic bottle after 5 days. Anaerobic Blood Culture - Final No growth in Anaerobic bottle after 5 days. 07/31/22 14:59 Aerobic Blood Culture - Final Blood No growth in Aerobic bottle after 5 days. Anaerobic Blood Culture - Final No growth in Anaerobic bottle after 5 days. 07/31/22 Unknown Gram Stain - Final Peritoneal Fluid Aerobic and Anaerobic Culture - Final No growth 07/30/22 17:25 Aerobic Blood Culture - Final Blood No growth in Aerobic bottle after 5 days. Anaerobic Blood Culture - Final No growth in Anaerobic bottle after 5 days. 08/02/22 17:00 Urine Culture - Final Urine,Indwelling Cath No growth - less than 1,000 colonies/mL. 07/30/22 17:25 Aerobic Blood Culture - Final Blood Staphylococcus aureus Coag neg staph not lugdunensis Anaerobic Blood Culture - Final Staphylococcus aureus Coag neg staph not lugdunensis Electrocardiogram Date: 07/30/22 Sinus tachycardia, rate 108 bpm Cannot rule out Anterior infarct , age undetermined Abnormal ECG No previous ECGs available Confirmed by Rodriguez De La Cruz ([id number]) on 07/30/2022 3:22:39 PM Chest X-Ray Date: 07/30/22 FINDINGS: Extensive innumerable predominantly subcentimeter nodules throughout all lung valentino. No pneumothorax. Mild blunting of the costophrenic angles suggestive of atelectasis. Mild right hemidiaphragmatic elevation. The bones appear grossly intact. IMPRESSION: Extensive pulmonary metastasis. Please refer to the CT abdomen and pelvis of same day for additional findings. Echocardiogram Date: 07/31/22 LV systolic function is normal No regional wall motion abnormalities noted Mild concentric LVH EF 65-70% No significant valvular pathology
[2022-08-08] MEDS ORDERED: ONDANSETRON INJ 2 MG/ML 2 ML VIAL ONE (08:05)
[2022-08-08] MEDS ORDERED: LIDOCAINE 2% MPF LOCAL 5 ML VIAL ONE (08:05)
[2022-08-08] MEDS ORDERED: PROPOFOL IV EMULSION 10 MG/ML 20 ML VIAL IV ONE (08:05)
--- NOTE | 2022-08-08 08:12 | Anesthesiology Progress Note ---
Date of Service August 08, 2022 Anesthesia Post Procedure Vital Signs Vital Signs: Temp Pulse Pulse Resp BP BP Pulse Ox 08/08/22 07:55 108 H 22 107/78 89 L 08/08/22 07:00 97 H 18 120/79 5 L 08/08/22 00:00 08/08/22 00:00 36.4 C L 89 20 110/73 90 08/07/22 20:00 08/07/22 19:31 36.7 C 99 H 20 112/67 91 08/07/22 15:42 36.8 C 108 H 18 103/73 91 08/07/22 12:03 36.4 C L 66 20 101/69 98 Pulse Ox O2 Del Method O2 Del Method O2 Flow Rate O2 Flow Rate 08/08/22 07:55 Oxymask 11 08/08/22 07:00 Oxymask 5 08/08/22 00:00 98 Nasal Cannula 2 08/08/22 00:00 Oxymask 4 08/07/22 20:00 Nasal Cannula 2 08/07/22 19:31 Oxymask 08/07/22 15:42 Oxymask 3 08/07/22 12:03 Oxymask 4 Pain Intensity Abdomen: Pain Intensity: 5 Transfer of Care Handoff Completed per policy Notes Mental Status: alert / awake / arousable and participated in evaluation Patient Amnestic to Procedure: Yes Nausea / Vomiting: adequately controlled Pain: adequately controlled Airway Patency, RR, SpO2: see Notes below BP & HR: stable & adequate Hydration State: stable & adequate Anesthetic Complications: no major complications apparent and Pt Satisfied with anesthetic care Notes: pt with increased oxygen requirement prior to procedure. will maintain on fm oxygen
--- NOTE | 2022-08-08 08:12 | Cardiology Consultation ---
Date of Consultation August 08, 2022 Assessment & Plan (1) MSSA bacteremia: After discussion of risks and benefits, patient underwent transesophageal echocardiogram which showed no evidence of valvular vegetation. All 4 valves were examined, port-a-cath tip was not visualized. Trace tricuspid regurgitation, no other valvular findings. History of Present Illness Reason for Consultation: eval for JULIANE need, MSSA bacteremia per ID recs Requesting Physician: Yenifer Mena DO Attending Physician: Yenifer Mena DO History of Present Illness 62-year-old man with no prior medical history who was admitted 07/30/2022 with abdominal pain and swelling found to have extensive metastatic colon cancer, blood cultures subsequently grew MSSA and CoNS not lugdenensis and was referred for transesophageal echocardiogram. Discussed in detail risks and benefits of transesophageal echocardiogram last evening, main benefit is to help exclude subacute bacterial endocarditis and thereby impact duration of antibiotic therapy; risks include damage to teeth, oropharynx, esophagus, risk of aspiration pneumonia, as well as the conscious sedation risks (managed by anesthesiology). Patient was in agreement and did undergo uneventful transesophageal echocardiogram this morning. Allergies Allergy/AdvReac Type Severity Reaction Status Date / Time No Known Allergies Allergy Unverified 07/30/22 19:24 Home Medications Medication Instructions Recorded Confirmed Type naproxen sodium 220 mg tablet 220 mg PO BID PRN Pain 07/30/22 07/30/22 History (Aleve) Patient History Medical History Abdominal pain, generalized Advanced care planning/counseling discussion Ascites Cancer related pain Palliative care by specialist Surgical History Ileostomy in place (08/02/22) p Laparoscopic Loop Ilieostomy(Not Applicable) - Reese Domingo DO s Infusaport Insertion(Left) - Arie Ramon MD, FACS Port-A-Cath in place (08/02/22) p Laparoscopic Loop Ilieostomy(Not Applicable) - Reese Domingo DO s Infusaport Insertion(Left) - Arie Ramon MD, FACS Social History Smoking Status: Former smoker Hx Alcohol Use: Yes Hx Substance Use: No Communication Ability: Effective Research And Development Director Required: No Beliefs That Will Affect Care: Spiritual Current Living Situation: Alone Feels Safe at Home: Yes Assistive Devices: None Physical Exam Physical Exam: No distress. Normotensive. Pulse 98 bpm and regular. Skin: no ecchymoses or generalized lesions. HEENT: unremarkable. Neck: no JVD or carotid bruits. Lungs: Moderately decreased breath sounds with diffuse rhonchi and scattered crackles. No accessory muscle use. Cardiac: Faint heart tones, regular rhythm, no murmur or gallop. Abdomen: Ascites. Extremities: no edema, pulses intact. Neurologic: normal affect and conversation, nonfocal. Results & Data Vital Signs (Past 12 Hours) Vital Signs Temp Pulse Pulse Resp BP BP Pulse Ox 08/08/22 07:00 97 H 18 120/79 5 L 08/08/22 00:00 08/08/22 00:00 97.5 F L 89 20 110/73 90 Pulse Ox O2 Del Method O2 Del Method O2 Flow Rate O2 Flow Rate 08/08/22 07:00 Oxymask 5 08/08/22 00:00 98 Nasal Cannula 2 08/08/22 00:00 Oxymask 4 Laboratory Results Normal electrolytes, BUN 16, creatinine 0.63. Diagnostic Findings Transthoracic echocardiogram 07/23/2022 showed EF 60-65% with normal wall motion, mildly dilated right ventricle, mild aortic root dilation (3.9 cm), mild tricuspid regurgitation. Transthoracic echocardiogram from 07/23/2022 showed normal LV systolic function with normal wall motion, no significant valvular pathology. PG Care Time/CCT Total # of Minutes Spent Total Time Spent with Patient: Total time spent is greater than 50% in coordination of care (as documented) at patient's floor/unit and/or counseling patient: Coding Level of Care Code 42850 IN/OBS CONSULT LVL 2,35M Diagnoses MSSA bacteremia R78.81; B95.61
--- NOTE | 2022-08-08 08:27 | XCELERA ---
[id number]
[2022-08-08] MEDS: UMECLIDINIUM/VILANTEROL 62.5/25MCG 7 PUFFS/INHALER INH SCH (09:51)
[2022-08-08] MEDS: FLUTICASONE FUROATE 200MCG 14 PUFFS/INHALER INH SCH (09:51)
--- NOTE | 2022-08-08 10:45 | Surgery Progress Note ---
Date of Service August 08, 2022 Assessment & Plan (1) Leukocytosis: (2) Ileostomy in place: (3) Ascites, malignant: Plan Patient is afebrile, leukocytosis remains. Patient continues to tolerate solid oral intake without nausea and the ileostomy continues to function well. Continue diet. Per medicine: Patient had a JULIANE today to rule out cardiac valvular vegetations as a source of leukocytosis Oxygen requirements increasing, plan is for paracentesis today to remove some ascites in hopes to improve this Will continue to follow. Admission and Anticipated Discharge Date Admission Date: July 30, 2022 Subjective Patient seen this am. O2 requirements increasing. Patient is unable to admit whether or not he feels more SOB or more abdominal distention. Just returning from JULIANE. Physical Exam Constitutional: WD/WN, vitals as above Respiratory: + uses accessory muscles; + abnormal respiratory effort, no respiratory distress and no labored breathing Chest (Breasts): Additional Comments: Port site at the left upper, anterior chest does not appear to be infected. The skin is not erythematous and there is no swelling, no drainage from the incision. Gastrointestinal (Abdomen): Inspection/Auscultation: + abdomen distended; + abdomen abnormal to inspection Percussion/Palpation: abdomen soft; no guarding Ileostomy is healthy and functioning. There is no leakage around the ostomy appliance. No ascites leaking from the laparoscopic incisions. The surgical incisions are all intact, without evidence for infection at any of the surgical sites. Results & Data Vital Signs (Past 12 Hours) Vital Signs Temp Pulse Pulse Resp BP BP Pulse Ox 08/08/22 09:01 104 H 22 110/78 92 08/08/22 08:45 101 H 22 102/68 90 08/08/22 08:30 101 H 22 114/78 90 08/08/22 08:16 103 H 22 112/89 90 08/08/22 07:55 108 H 22 107/78 89 L 08/08/22 07:00 97 H 18 120/79 5 L 08/08/22 00:00 08/08/22 00:00 36.4 C L 89 20 110/73 90 Pulse Ox O2 Del Method O2 Del Method O2 Flow Rate O2 Flow Rate 08/08/22 09:01 Oxymask 7 08/08/22 08:45 Oxymask 9 08/08/22 08:30 Oxymask 9 08/08/22 08:16 Oxymask 11 08/08/22 07:55 Oxymask 11 08/08/22 07:00 Oxymask 5 08/08/22 00:00 98 Nasal Cannula 2 08/08/22 00:00 Oxymask 4 PG Care Time/CCT Total # of Minutes Spent Total Time Spent with Patient: Total time spent is greater than 50% in coordination of care (as documented) at patient's floor/unit and/or counseling patient: Coding Level of Care Code 34324 SUB INP/OBS CARE 125MIN Diagnoses Leukocytosis D72.[address] Z93.2 Ascites, malignant R18.0
[2022-08-08] MEDS: POTASSIUM CHLORIDE 10 MEQ TABCR PO SCH (11:52)
--- NOTE | 2022-08-08 14:19 | Infectious Disease Progress Nt ---
Date of Service August 08, 2022 Assessment & Plan (1) Colon cancer: Plan: 1.MSSA bacteremia 2. Leukocytosis 3. New diagnosis of Stage IV colon cancer 62 yo M without significant PMH was admitted to [facility] with abdominal distention and abdominal pain, found to have metastatic colon cancer. Infectious diseases consulted for bacteremia and ongoing leukocytosis. Patient was admitted on 07/30. He was found to have leukocytosis of 22, creatinine normal, alkphos 437, CEA 70, PCT 5.39. Blood cultures 07/30 grew MSSA and CoNS not lugdenensis. CT abdomen and pelvis showed masslike area of soft tissue prominence within the cecum and ileocecal valve is suggestive of a pr imary mucosal colonic malignancy, extensive pulmonary metastasis, metastatic lymphadenopathy of the chest and abdomen along with hepatic, omental and peritoneal carcinomatosis and large volume of abdominal pelvic ascites. He underwent paracentesis on 07/31 which revealed colonic metastatic adenocarcinoma . he was initially placed on IV zosyn. 2DE negative for vegetation on 07/30. Zosyn was discontinued on 08/04. Cefazolin started on 08/06. Patient continues to have leukocytosis. ID consulted today for MSSA and leukocytosis evaluation Patient cleared his blood cultures on 07/31 but Abx stopped on 08/04. His port was placed on 08/02. It is very unlikely the bacteria seeded the port however given he was off antibiotics 48 hours it would not be impossible. I suspect his elevated WBC irepeat CT AP no infectious etiology and JULIANE is negative, (2) MSSA bacteremia: Plan -Repeat blood cultures from 08/06 are NGTD -CW Cefazolin 2G IV TID -Leukocytosis likely secondary is malignancy most likely but monitor closely -Since JULIANE is negative, would recommend treatment x 4 weeks total from first negative blood culture 07/31 through 08/28/22, with weekly CBCD and CMP to monitor and with repeat blood cultures in 3-5 days after completion of antibiotics to ensure no seeding of bacteremia. - He may proceed to chemotherapy from ID standpoint. I spoke Primary regarding my recommendations Pallavi Bustos MD Infectious Diseases Admission and Anticipated Discharge Date Admission Date: July 30, 2022 Subjective This patient recommendation is based on a telemedicine consult request which was completed asynchronously through chart review and information provided by the primary physician. The patient was not seen or examined today. The evaluation is consultative in nature and all patient care and treatment decisions can either be accepted or rejected by the patient's primary hospital-based treating physician using their own independent medical judgment for their patient. Time Spent Reviewing Chart: 21 - 30 minutes [address] AP no abscess or obvious infection, c/w malignancy Results & Data Vital Signs (Past 12 Hours) Vital Signs Temp Pulse Pulse Resp BP BP Pulse Ox 08/08/22 11:37 36.5 C 104 H 18 108/74 93 08/08/22 09:01 104 H 22 110/78 92 08/08/22 08:45 101 H 22 102/68 90 08/08/22 08:30 101 H 22 114/78 90 08/08/22 08:16 103 H 22 112/89 90 08/08/22 07:55 108 H 22 107/78 89 L 08/08/22 07:00 97 H 18 120/79 5 L O2 Del Method O2 Flow Rate 08/08/22 11:37 Oxymask 7 08/08/22 09:01 Oxymask 7 08/08/22 08:45 Oxymask 9 08/08/22 08:30 Oxymask 9 08/08/22 08:16 Oxymask 11 08/08/22 07:55 Oxymask 11 08/08/22 07:00 Oxymask 5 Laboratory Results Laboratory Results - last 48 hr 08/07/22 08/07/22 08/08/22 05:40 05:40 05:58 WBC 23.86 H 22.50 H RBC 3.65 L 3.70 L Hgb 10.6 L 10.7 L Hct 32.2 L 33.3 L MCV 88.2 90.0 MCH 29.0 28.9 MCHC 32.9 32.1 RDW Std Deviation 42.7 44.1 RDW Coeff of Andrew 13.3 13.6 Plt Count 278 297 MPV 10.3 10.4 Immature Gran % (Auto) 0.7 0.8 Neut % (Auto) 91.9 90.6 Lymph % (Auto) 2.7 2.9 [place] % (Auto) 4.6 5.4 Eos % (Auto) 0.0 0.2 Baso % (Auto) 0.1 0.1 Neut # (Auto) 21.91 H 20.37 H Lymph # (Auto) 0.65 L 0.65 L [place] # (Auto) 1.10 H 1.22 H Eos # (Auto) 0.00 0.05 Baso # (Auto) 0.03 0.03 Immature Gran # (Auto) 0.17 0.18 Sodium 133 L Potassium 3.9 Chloride 97 L Carbon Dioxide 31 Anion Gap 5 BUN 18 Creatinine 0.59 L Est Cr Clr Drug Dosing 130.6 Est GFR ( Amer) 124.0 Est GFR (Non-Af Amer) 107.0 BUN/Creatinine Ratio 30.5 H Glucose 114 H Calcium 7.5 L Magnesium 1.9 Total Bilirubin 0.3 AST 50 H ALT 25 Alkaline Phosphatase 236 H Total Protein 5.1 L Albumin 2.3 L Globulin 2.8 Albumin/Globulin Ratio 0.8 L 08/08/22 05:58 WBC RBC Hgb Hct MCV MCH MCHC RDW Std Deviation RDW Coeff of Andrew Plt Count MPV Immature Gran % (Auto) Neut % (Auto) Lymph % (Auto) [place] % (Auto) Eos % (Auto) Baso % (Auto) Neut # (Auto) Lymph # (Auto) [place] # (Auto) Eos # (Auto) Baso # (Auto) Immature Gran # (Auto) Sodium 136 Potassium 4.1 Chloride 101 Carbon Dioxide 30 Anion Gap 5 BUN 16 Creatinine 0.63 Est Cr Clr Drug Dosing 122.3 Est GFR ( Amer) 120.7 Est GFR (Non-Af Amer) 104.1 BUN/Creatinine Ratio 25.4 H Glucose 106 H Calcium 7.6 L Magnesium Total Bilirubin 0.3 AST 51 H ALT 23 Alkaline Phosphatase 295 H Total Protein 5.2 L Albumin 2.3 L Globulin 2.9 Albumin/Globulin Ratio 0.8 L Diagnostic Findings Abdomen/Pelvis CT 08/07/22 14:[address] WITH IV CONTRAST CT DOSE: 674.38 mGycm HISTORY: Acute generalized abdominal pain with leukocytosis reported malignancy ongoing leukocytosis malignancy eval for ?absess TECHNIQUE: Multiaxial CT images of the abdomen and pelvis were performed follo wing the IV administration of 85 cc of Optiray, A dose lowering technique was utilized adhering to the principles of ALARA. COMPARISON STUDY: CTA chest of same day, chest radiograph 08/02/2022, CT abdomen and pelvis 07/30/2022 FINDINGS: Extensive innumerable pulmonary metastatic lesions throughout the imaged lung valentino measuring up to approximately 2 cm with intralobular septal thickening suggestive of associated lymphangitic carcinomatosis. Development of small pleural effusions with mild dependent bibasilar consolidation.. Metastatic borderline enlarged cardiophrenic lymph nodes. The spleen, and adrenal glands are unremarkable. The pancreatic duct measures the upper limits of normal at 4 mm. No discrete pancreatic mass identified. There are several scattered hepatic metastasis measuring up to approximately 4.6 cm, stable from prior. mild marginal nodularity of the liver may represent cirrhosis versus pseudocirrhosis. Patent portal vein. Unremarkable gallbladder. No hydronephrosis. Subcentimeter hypodense focus of the interpolar left kidney is too small to characterize. Decompressed urinary bladder with wall thickening. Prostamegaly. Atherosclerosis of the aorta and branch vessels. Pathologic lymphadenopathy is again noted within the periportal/pericaval distributions and retroperitoneum. Left aortic index lymph node measures 2.9 x 2.2 cm on image 260, stable. There is moderate fecal retention within the rectum. Mild colonic diverticulosis. Probable serosal implants of the transverse colon. Moderate colonic fecal retention. There is a 4.2 x 2.0 x 5.0 cm focus of masslike thickening in the cecum and ileocecal valve with circumferential terminal ileal wall thickening. No bowel obstruction. Several loops of small bowel to lower demonstrate circumferential wall thickening within the abdomen and pelvis. Interval postoperative changes of right lower quadrant ileostomy. There is a large amount of abdominal pelvic ascites. Moderate peritoneal/omental carcinomatosis. The visualized appendix appears noninflamed. Moderate generalized body wall edema. Unremarkable soft tissues. No acute fracture or destructive bone lesion identified. IMPRESSION: 1. Interval right lower quadrant ileostomy with resolution of the previously noted small bowel obstruction. 2. Mass within the cecum/ileocecal valve is again noted suggestive of primary colonic malignancy. 3. Extensive pulmonary metastasis is with metastatic lymphadenopathy of the chest and abdomen along with hepatic, omental and peritoneal carcinomatosis has not significantly changed compared to the study dated 07/30/2022. 4. Large volume of abdominal pelvic ascites. 5. Small pleural effusions with mild dependent bibasilar consolidation . 6. Several loops of small bowel demonstrate circumferential wall thickening . Correlate clinically to exclude a nonspecific enteritis. 7. Additional findings as above. ACT 112: Negative or not required by law. The above report was generated using voice recognition software. It may contain grammatical, syntax or spelling errors. Electronically signed by: Gurdeep Ventura M.D. 08/07/2022 4:12 PM Medications Administered Current Inpatient Medications Acetaminophen (Acetaminophen 325 Mg Tab) 650 mg PO Q4H PRN PRN Reason: Pain or Fever Stop: 09/03/22 21:37 Last Admin: 08/07/22 21:04 Dose: 650 mg Albuterol (Albut/Ipratrop 3mg/0.5mg Neb 3 Ml Vial) 3 ml INH Q6R PRN PRN Reason: SOB/wheezing Stop: 09/04/22 18:59 Enoxaparin Sodium (Enoxaparin Inj 40 Mg/0.4 Ml Syr) 40 mg SQ QAM DWAYNE Stop: 09/04/22 08:59 Last Admin: 08/07/22 08:16 Dose: 40 mg Fluticasone Furoate (Fluticasone Furoate 200mcg 14 Puffs/Inhaler) 1 puffs INH DAILY DWAYNE Stop: 09/05/22 08:59 Last Admin: 08/08/22 09:51 Dose: 1 puffs Heparin Sodium (Porcine) (Heparin 100 Unit/Ml 5ml Flush) 5 ml FLUSH PRN PRN PRN Reason: Flush Stop: 09/05/22 23:47 Cefazolin Sodium (Ancef 2000mg) 2,000 mg in 15 mls @ 3.75 mls/min IV Q8H DWAYNE Stop: 08/20/22 10:14 Last Admin: 08/08/22 11:52 Dose: 3.75 mls/min Morphine Sulfate (Morphine Sulfate 4 Mg/Ml 1 Ml Carp\Vial) 4 mg IV Q3H PRN PRN Reason: Pain (7,8,9,10) Stop: 08/13/22 21:09 Last Admin: 08/03/22 18:15 Dose: 4 mg Morphine Sulfate (Morphine Sulfate 2 Mg/Ml Carp) 2 mg IV Q3H PRN PRN Reason: Pain (4,5,6) & Pre PT Stop: 08/13/22 21:09 Last Admin: 08/03/22 05:25 Dose: 2 mg Ondansetron HCl (Ondansetron Inj 2 Mg/Ml 2 Ml Vial) 4 mg IV Q6H PRN PRN Reason: Nausea Stop: 08/29/22 21:09 Polyethylene Glycol (Polyethylene (Miralax) 17 Gm Pack) 17 gm PO DAILY PRN PRN Reason: Constipation Stop: 09/03/22 21:37 Potassium Chloride (Potassium Chloride 10 Meq Tabcr) 40 meq PO DAILY DWAYNE Stop: 09/06/22 08:59 Last Admin: 08/08/22 11:52 Dose: 40 meq Umeclidinium/Vilanterol (Umeclidinium/Vilanterol 62.5/25mcg 7 Puffs/Inhaler) 1 puffs INH DAILY DWAYNE Stop: 09/04/22 16:14 Last Admin: 08/08/22 09:51 Dose: 1 puffs (1) Colon cancer Colon location: unspecified part of colon Qualified Code(s): C18.9 - Malignant neoplasm of colon, unspecified
[2022-08-09] MEDS: ceFAZolin 2000MG 2,000 MG/15 ML SYR IV SCH ×3 (02:23→18:35)
[2022-08-09 06:29] LABS: Basophils # (auto) 0.02 K/uL (0-0.2); Basophils % (auto) 0.1 %; Eosinophils # (auto) 0.01 K/uL (0-0.50); Eosinophils % (auto) 0.1 %; Hematocrit (blood only) 32.8 % (42.0-52.0); Hemoglobin 10.5 g/dl (14.0-18.0); Immature Granulocytes # (auto) 0.46 K/uL (0.01-0.20); Immature Granulocytes % (auto) 2.6 %; Lymphocytes # (auto) 0.73 K/uL (1.2-3.4); Lymphocytes % (auto) 4.1 %; Mean Corpuscular Hemoglobin 28.6 pg (25.0-34.0); Mean Corpuscular Volume 89.4 fL (80.0-100.0); Mean Platelet Volume 10.4 fL (9.4-12.4); Monocytes # (auto) 1.31 K/uL (0.11-0.59); Monocytes % (auto) 7.3 %; Neutrophils # (auto) 15.38 K/uL (1.40-6.50); Neutrophils % (auto) 85.8 %; Platelet Count 313 K/uL (130-400); RDW Coefficient of Variation 13.9 % (11.5-14.5); RDW Standard Deviation 43.8 fL (36.4-46.3); Red Blood Count 3.67 M/uL (4.70-6.10); White Blood Count 17.91 K/ul (4.8-10.8)
[2022-08-09 06:48] LABS: Albumin Globulin Ratio 0.8 (0.9-2); Albumin Level 2.3 gm/dl (3.4-5.0); BUN Creatinine Ratio 24.3 (10-20); Bilirubin,Total 0.4 mg/dl (0.2-1.0); Calcium 7.7 mg/dl (8.6-10.3); Creatinine Clr Calc Pharmacy 110.1 ml/min; Est GFR (African American) 115.6 ml/min; Est GFR (Non-African American) 99.7 ml/min; Magnesium 1.9 mg/dl (1.7-2.4); Potassium 4.4 mmol/L (3.5-5.1); Total Protein 5.3 gm/dl (6.0-8.3)
--- NOTE | 2022-08-09 08:02 | Surgery Progress Note ---
Patient seen this am. Continues to do well from a surgical standpoint. Will F/U results of paracentesis. Date of Service August 09, 2022 Assessment & Plan (1) Ileostomy in place: Plan: Patient s/p mediport placement and diverting loop ileostomy for stage 4 colon ca no abdominal complaints. all incisions c/d/i without evidence of infection he is tolerating a low fiber diet. ostomy is viable and functioning well he is scheduled to undergo paracentesis today, will see if this improves breathing and O2 sats WBC 17.. ID provided antibiotic recommendations. Recent blood cx ngtd and JULIANE yesterday negative for vegetations continue low fiber diet. when medically stable for discharge f/u in clinic with Dr. Domingo in 2 weeks Admission and Anticipated Discharge Date Admission Date: July 30, 2022 Subjective Patient somewhat tearful about still being here. Has been NPO for paracentesis today, however otherwise has been tolerating a diet. Denies abdominal pain/n/v. Ostomy functioning. Physical Exam Physical Exam: awake/alert Respiratory: on 4L oxymask Gastrointestinal (Abdomen): Inspection/Auscultation: + abdomen distended (softly distended) Percussion/Palpation: abdomen soft; abdomen nontender + ostomy viable and functioning with stool in bag Results & Data Vital Signs (Past 12 Hours) Vital Signs Temp Pulse Pulse Resp BP BP Pulse Ox 08/09/22 02:31 36.4 C L 89 16 124/80 91 08/09/22 00:00 08/08/22 23:11 36.5 C 83 20 100/64 93 08/08/22 22:34 93 H Pulse Ox O2 Del Method O2 Del Method O2 Flow Rate O2 Flow Rate 08/09/22 02:31 Oxymask 4 08/09/22 00:00 93 Oxymask 4 08/08/22 23:11 Oxymask 4 08/08/22 22:34 PG Care Time/CCT Total # of Minutes Spent Total Time Spent with Patient: Total time spent is greater than 50% in coordination of care (as documented) at patient's floor/unit and/or counseling patient: Coding Level of Care Code 43651 Post Operative Follow-Up Diagnoses Ileostomy in place Z93.2
[2022-08-09] MEDS: POTASSIUM CHLORIDE 10 MEQ TABCR PO SCH (08:41)
[2022-08-09] MEDS: UMECLIDINIUM/VILANTEROL 62.5/25MCG 7 PUFFS/INHALER INH SCH (08:41)
[2022-08-09] MEDS: FLUTICASONE FUROATE 200MCG 14 PUFFS/INHALER INH SCH (08:41)
--- NOTE | 2022-08-09 14:49 | Ultrasound Report ---
Ultrasound-guided paracentesis INDICATION: Ascites PROCEDURE: Procedure and risks were explained. Informed consent was obtained. A final timeout was com pleted. The left lower quadrant was prepped and draped in sterile fashion. 1% buffered lidocaine was utilized for skin anesthesia. Utilizing ultrasound guidance, a 5 [place] safety centesis catheter was advanced into the pocket of marion riddle. Ultrasound images were obtained. 4.8 L of cloudy yellow ascites fluid was removed, with 1 L se nt to the lab for analysis. The catheter was removed and Band-Aid applied. The patient tolerated the procedure well. Vital signs will be monitored prior to discharge. IMPRESSION: Ultrasound-guided paracentesis as detailed above. Performed, dictated, and signed by Amado Ghohs PA-C; to be co-signed by Dr. Alex Boland. Electronically signed by: Alex Boland M.D. 08/09/2022 2:54 PM
[2022-08-09 16:25] LABS: Appearance Peritoneal Fluid Cloudy; Color Peritoneal Fluid Yellow; RBC Peritoneal Fluid Auto 3000 /uL; WBC Peritoneal Fluid Auto 211 /ul (0-300)
[2022-08-09 17:04] LABS: Lymphocytes, Fluid 52 %; Mono,Macrophage,Mesothelial 33 %; Neutrophils, Fluid 6 %; Other Cells Peritoneal Fluid 9 %
--- NOTE | 2022-08-09 18:04 | Hospitalist Progress Note ---
Date of Service August 09, 2022 Assessment & Plan (1) MSSA bacteremia: Plan: 07/30 05/09 BCx with Staph epidermidis and MSSA; I am concerned at this point given ongoing leukocytosis and had port placed for future chemo, that this is likely a true infection Fortunately repeat BCx 07/31 negative, BCx 08/06 no growth to date JULIANE on 08/08 without evidence of vegetation Infectious disease consulted and appreciate recommendations, anticipate 4 weeks of IV antibiotics as long as no other source of infection is determined that would change to this care plan, prescription provided to case management, will need ultrasound-guided IV prior to discharge Case management to assist given patient's low health literacy, multiple antibiotic infusions daily, lives alone, no primary care provider; plan for discharge to rehab facility once medically stable and bed available (2) SBO (small bowel obstruction): Plan: Narrowing of the ileocecal valve with resultant upstream small bowel obstruction secondary to soft tissue prominence within the cecum and ileocecal valve suggestive of primary mucosal colonic malignancy General surgery consulted: s/p diverting ileostomy 08/02, healing well and will need outpatient follow-up (2 weeks post-op) Tolerating low fiber diet without issues Continue KCl elixir for hypokalemia As needed antiemetics and analgesics (3) Colon cancer: Plan: Patient has not seen a doctor in his adult life, needs PCP, case management assisting Soft tissue prominence within the cecum and ileocecal valve 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, liver, omentum, peritoneum Cancer is new diagnosis -- patient had never had screening colonoscopy performed Metastatic colon cancer with secondary malignant neoplasm of liver and lungs, with carcinomatosis CEA elevated at 70 LFTs elevated from liver mets CT Chest with extensive metastatic pulm disease Ascites cytology confirms adenocarcinoma of the colon, with full path pending and Oncology consulted, to initiate treatment once antibiotics have completed for MSSA bacteremia Consult oncology appreciated- port placed by surgery this admission for palliative chemo when able PT and OT evaluations ongoing for dispo planning (4) Pulmonary metastases: Plan: With acute respiratory failure with hypoxia - tolerating supplemental oxygen CT Chest with innumerable mets from colon cancer, CTA Chest 08/04 without evidence of PNA or PE Mets are suspected cause of hypoxia, multifactorial with suspected underlying undiagnosed COPD given for decades smoking history, patient quit 1 week ago and does not intend to resume smoking Continue ICS/LABA/LAMA while admitted, to continue on discharge with follow-up pulmonary function testing Two-step prior to discharge if returning home, however more likely will go to rehab on discharge (5) Ascites: Plan: 2/2 metastatic disease Paracentesis performed and 6L removed on admission, repeat paracentesis today 08/09 for large volume ascites on repeat CTAP Peritoneal fluid analysis on admission with elevated WBCs, Gram stain no growth, cytology positive for adenocarcinoma. 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 Review of Systems Review of Systems: All systems reviewed & are unremarkable except as noted in Subjective Physical Exam Physical Exam: General: Awake, conversant. Cachectic with bitemporal and intercostal muscle wasting Heart: S1, S2/regular rate and rhythm, no murmur rubs or gallops Lungs: Diminished breath sounds bilaterally. Normal effort Abdomen: Soft/nontender/distended with ascites. Extremities: No clubbing/cyanosis. 2+ pitting bilateral edema Behavior: Appropriate, cooperative Results & Data Results & Data Vital Signs (Past 12 Hours) Vital Signs Temp Pulse Pulse Resp BP Pulse Ox O2 Del Method 08/09/22 16:11 93 H 08/09/22 16:09 36.3 C L 96 H 18 116/82 91 Oxymask 08/09/22 12:06 36.5 C 88 19 117/76 92 Oxymask 08/09/22 08:26 36.6 C 92 H 18 107/70 91 Oxymask 08/09/22 06:21 81 08/09/22 07:55 Oxymask O2 Flow Rate 08/09/22 16:11 08/09/22 16:09 4 08/09/22 12:06 4 08/09/22 08:26 7 08/09/22 06:21 08/09/22 07:55 4 Laboratory Results Abnormal lab results 08/09/22 08/09/22 Range/Units 05:48 05:49 WBC 17.91 H (4.8-10.8) K/ul RBC 3.67 L (4.70-6.10) M/uL Hgb 10.5 L (14.0-18.0) g/dl Hct 32.8 L (42.0-52.0) % Neut # (Auto) 15.38 H (1.40-6.50) K/uL Lymph # (Auto) 0.73 L (1.2-3.4) K/uL [place] # (Auto) 1.31 H (0.11-0.59) K/uL Immature Gran # (Auto) 0.46 H (0.01-0.20) K/uL Sodium 134 L (136-145) mmol/L BUN/Creatinine Ratio 24.3 H (10-20) Glucose 108 H (70-99(Fasting)) mg/dl Calcium 7.7 L (8.6-10.3) mg/dl AST 46 H (13-39) U/L Alkaline Phosphatase 308 H (34-104) U/L Total Protein 5.3 L (6.0-8.3) gm/dl Albumin 2.3 L (3.4-5.0) gm/dl Albumin/Globulin Ratio 0.8 L (0.9-2) Diagnostic Findings Paracentesis Ultrasound 08/09/22 14:42 Ultrasound-guided paracentesis INDICATION: Ascites PROCEDURE: Procedure and risks were explained. Informed consent was obtained. A final timeout was completed. The left lower quadrant was prepped and draped in sterile fashion. 1% buffered lidocaine was utilized for skin anesthesia. Utilizing ultrasound guidance, a 5 Frisian safety centesis catheter was advanced into the pocket of ascites. Ultrasound images were obtained. 4.8 L of cloudy yellow ascites fluid was removed, with 1 L sent to the lab for analysis. The catheter was removed and Band-Aid applied. The patient tolerated the procedure well. Vital signs will be monitored prior to discharge. IMPRESSION: Ultrasound-guided paracentesis as detailed above. Performed, dictated, and signed by Amado Ghosh PA-C; to be co-signed by Dr. Alex Boland. Electronically signed by: Alex Boland M.D. 08/09/2022 2:54 PM PG Care Time/CCT Total # of Minutes Spent Total Time Spent with Patient: Total time spent is greater than 50% in coordination of care (as documented) at patient's floor/unit and/or counseling patient: Coding Level of Care Code 01298 SUB INP/OBS CARE 2/35MIN Diagnoses MSSA bacteremia R78.81; B95.61 SBO (small bowel obstruction) K56.609 Colon cancer C18.9 Colon location: unspecified part of colon Pulmonary metastases C78.01; C78.02 Laterality: bilateral Ascites R18.8 Leukocytosis D72.829 Demand ischemia of myocardium I24.8 Hyponatremia E87.1 Peripheral edema R60.9 (3) Colon cancer Colon location: unspecified part of colon Qualified Code(s): C18.9 - Malignant neoplasm of colon, unspecified (4) Pulmonary metastases Laterality: bilateral Qualified Code(s): C78.01 - Secondary malignant neoplasm of right lung; C78.02 - Secondary malignant neoplasm of left lung
[2022-08-09] MEDS: SODIUM CHLORIDE 0.9% 1000ML 1,000 ML IV SCH (18:37)
[2022-08-10] MEDS: ceFAZolin 2000MG 2,000 MG/15 ML SYR IV SCH ×3 (03:10→18:08)
[2022-08-10] MEDS: ACETAMINOPHEN 325 MG TAB PO PRN ×2 (04:49→19:41)
[2022-08-10] MEDS: SODIUM CHLORIDE 0.9% 1000ML 1,000 ML IV SCH (06:43)
[2022-08-10] MEDS: FLUTICASONE FUROATE 200MCG 14 PUFFS/INHALER INH SCH (08:35)
[2022-08-10] MEDS: UMECLIDINIUM/VILANTEROL 62.5/25MCG 7 PUFFS/INHALER INH SCH (08:35)
[2022-08-10] MEDS: POTASSIUM CHLORIDE 10 MEQ TABCR PO SCH (08:35)
--- NOTE | 2022-08-10 08:35 | Infectious Disease Progress Nt ---
Date of Service August 10, 2022 24 hours: Paracentesis Assessment & Plan (1) Colon cancer: Plan: 1.MSSA bacteremia 2. Leukocytosis 3. New diagnosis of Stage IV colon cancer 62 yo M without significant PMH was admitted to [facility] with abdominal distention and abdominal pain, found to have metastatic colon cancer. Infectious diseases consulted for bacteremia and ongoing leukocytosis. Patient was admitted on 07/30. He was found to have leukocytosis of 22, creatini ne normal, alkphos 437, CEA 70, PCT 5.39. Blood cultures 07/30 grew MSSA and CoNS not lugdenensis. CT abdomen and pelvis showed masslike area of soft tissue prominence within the cecum and ileocecal valve is suggestive of a primary mucosal colonic malignancy, extensive pulmonary metastasis, metastatic lymphadenopathy of the chest and abdomen along with hepatic, omental and peritoneal carcinomatosis and large volume of abdominal pelvic ascites. He underwent paracentesis on 07/31 which revealed colonic metastatic adenocarcinoma . he was initially placed on IV zosyn. 2DE negative for vegetation on 07/30. Zosyn was discontinued on 08/04. Cefazolin started on 08/06. Patient continues to have leukocytosis. ID consulted today for MSSA and leukocytosis evaluation Patient cleared his blood cultures on 07/31 but Abx stopped on 08/04. His port was placed on 08/02. It is very unlikely the bacteria seeded the port however given he was off antibiotics 48 hours it would not be impossible. I suspect his eleva kevin WBC irepeat CT AP no infectious etiology and JULIANE is negative, Paracentesis on 08/09 fluid WBC 211 (6%pmns), RBC 3000, not consistent with peritonitis (2) MSSA bacteremia: Plan -Repeat blood cultures from 08/06 are NGTD -CW Cefazolin 2G IV TID -Leukocytosis likely secondary is malignancy most likely but monitor closely -Since JULIANE is negative, would recommend treatment x 4 weeks total from first negative blood culture 07/31 through 08/28/22, with weekly CBCD and CMP to monitor and with repeat blood cultures in 3-5 days after completion of antibiotics to ensure no seeding of bacteremia. -Follow peritoneal fluid cultures to ensure no growth - He may proceed to chemotherapy from ID standpoint. I spoke Primary regarding my recommendations I will s/o at this time, please call me with any questions Pallavi Bustos MD Infectious Diseases Admission and Anticipated Discharge Date Admission Date: July 30, 2022 Subjective This patient recommendation is based on a telemedicine consult request which was completed asynchronously through chart review and information provided by the primary physician. The patient was not seen or examined today. The evaluation is consultative in nature and all patient care and treatment decisions can either be accepted or rejected by the patient's primary hospital-based treating physician using their own independent medical judgment for their patient. Time Spent Reviewing Chart: 21 - 30 minutes Results & Data Vital Signs (Past 12 Hours) Vital Signs Temp Pulse Pulse Resp BP BP Pulse Ox 08/10/22 08:09 36.6 C 83 20 113/76 92 08/10/22 04:52 36.3 C L 107 H 20 129/75 91 08/09/22 23:00 94 H 08/09/22 22:04 36.5 C 90 18 120/77 91 O2 Del Method O2 Flow Rate 08/10/22 08:09 Nasal Cannula 3.5 08/10/22 04:52 Nasal Cannula 4 08/09/22 23:00 08/09/22 22:04 Nasal Cannula 4 Laboratory Results Laboratory Results - last 48 hr 07/30/22 08/09/22 08/09/22 Unknown 05:48 05:49 WBC 17.91 H RBC 3.67 L Hgb 10.5 L Hct 32.8 L MCV 89.4 MCH 28.6 MCHC 32.0 RDW Std Deviation 43.8 RDW Coeff of Andrew 13.9 Plt Count 313 MPV 10.4 Immature Gran % (Auto) 2.6 Neut % (Auto) 85.8 Lymph % (Auto) 4.1 [place] % (Auto) 7.3 Eos % (Auto) 0.1 Baso % (Auto) 0.1 Neut # (Auto) 15.38 H Lymph # (Auto) 0.73 L [place] # (Auto) 1.31 H Eos # (Auto) 0.01 Baso # (Auto) 0.02 Immature Gran # (Auto) 0.46 H Sodium 134 L Potassium 4.4 Chloride 99 Carbon Dioxide 30 Anion Gap 5 BUN 17 Creatinine 0.70 Est Cr Clr Drug Dosing 110.1 Est GFR ( Amer) 115.6 Est GFR (Non-Af Amer) 99.7 BUN/Creatinine Ratio 24.3 H Glucose 108 H Calcium 7.7 L Magnesium 1.9 Total Bilirubin 0.4 AST 46 H ALT 16 Alkaline Phosphatase 308 H Total Protein 5.3 L Albumin 2.3 L Globulin 3.0 Albumin/Globulin Ratio 0.8 L Fluid Neutrophils % Fluid Lymphocytes % Fluid Meso/Macro/[place] % Fluid Comment Peritoneal Color Peritoneal Appearance Peritoneal WBC (Auto) Peritoneal RBC (Auto) Peritoneal Other Cells Peritoneal Tot Protein Peritoneal Albumin IHC Stain and Interp 08/09/22 08/09/22 08/09/22 Unknown Unknown Unknown WBC RBC Hgb Hct MCV MCH MCHC RDW Std Deviation RDW Coeff of Andrew Plt Count MPV Immature Gran % (Auto) Neut % (Auto) Lymph % (Auto) [place] % (Auto) Eos % (Auto) Baso % (Auto) Neut # (Auto) Lymph # (Auto) [place] # (Auto) Eos # (Auto) Baso # (Auto) Immature Gran # (Auto) Sodium Potassium Chloride Carbon Dioxide Anion Gap BUN Creatinine Est Cr Clr Drug Dosing Est GFR ( Amer) Est GFR (Non-Af Amer) BUN/Creatinine Ratio Glucose Calcium Magnesium Total Bilirubin AST ALT Alkaline Phosphatase Total Protein Albumin Globulin Albumin/Globulin Ratio Fluid Neutrophils % 6 Fluid Lymphocytes % 52 Fluid Meso/Macro/[place] % 33 Fluid Comment Peritoneal Color Yellow Peritoneal Appearance Cloudy Peritoneal WBC (Auto) 211 Peritoneal RBC (Auto) 3000 Peritoneal Other Cells 9 Peritoneal Tot Protein < 3.0 Peritoneal Albumin 1.5 IHC Stain and Interp Microbiology 08/09/22 Unknown Peritoneal Fluid Gram Stain - Final 08/06/22 10:51 Blood Aerobic Blood Culture - Preliminary No growth in Aerobic bottle after 48 hours. 08/06/22 10:51 Blood Anaerobic Blood Culture - Preliminary No growth in Anaerobic bottle after 48 hours. 08/06/22 10:43 Blood Aerobic Blood Culture - Preliminary No growth in Aerobic bottle after 48 hours. 08/06/22 10:43 Blood Anaerobic Blood Culture - Preliminary No growth in Anaerobic bottle after 48 hours. 08/02/22 17:57 Peritoneal Fluid Gram Stain - Final 08/02/22 17:57 Peritoneal Fluid Aerobic and Anaerobic Culture - Final No growth 07/31/22 14:59 Blood Aerobic Blood Culture - Final No growth in Aerobic bottle after 5 days. 07/31/22 14:59 Blood Anaerobic Blood Culture - Final No growth in Anaerobic bottle after 5 days. 07/31/22 14:59 Blood Aerobic Blood Culture - Final No growth in Aerobic bottle after 5 days. 07/31/22 14:59 Blood Anaerobic Blood Culture - Final No growth in Anaerobic bottle after 5 days. 07/31/22 Unknown Peritoneal Fluid Gram Stain - Final 07/31/22 Unknown Peritoneal Fluid Aerobic and Anaerobic Culture - Final No growth 07/30/22 17:25 Blood Aerobic Blood Culture - Final No growth in Aerobic bottle after 5 days. 07/30/22 17:25 Blood Anaerobic Blood Culture - Final No growth in Anaerobic bottle after 5 days. 08/02/22 17:00 Urine,Indwelling Cath Urine Culture - Final No growth - less than 1,000 colonies/mL. 07/30/22 17:25 Blood Aerobic Blood Culture - Final Staphylococcus aureus Coag neg staph not lugdunensis 07/30/22 17:25 Blood Anaerobic Blood Culture - Final Staphylococcus aureus Coag neg staph not lugdunensis (1) Colon cancer Colon location: unspecified part of colon Qualified Code(s): C18.9 - Malignant neoplasm of colon, unspecified
--- NOTE | 2022-08-10 10:39 | Surgery Progress Note ---
Date of Service August 10, 2022 Assessment & Plan (1) Ascites, malignant: (2) Leukocytosis: (3) Ileostomy in place: (4) Colonic mass: Plan Patient remains afebrile with negative blood cultures. Leukocytosis was improving as of yesterday, patient on antibiotics. Ascites drained yesterday. No organisms in fluid. Oxygen requirements decreased. Consider ostomy nurse evaluation for recommendations on securing the ostomy appliance as the patient reports it started leaking last night unless there was just a particular difference in the last application compared to previous. Chemotherapy coordination and rehab placement as per medicine Follow up next week to evaluate for ileostomy bridge removal. Admission and Anticipated Discharge Date Admission Date: July 30, 2022 Subjective Patient seen this am. Continues to tolerate his diet with a functioning ileostomy. Denies fevers, chills, nausea and vomiting. Physical Exam Constitutional: WD/WN, vitals as above Respiratory: normal respiratory effort; no respiratory distress, no labored breathing and does not use accessory muscles Gastrointestinal (Abdomen): ileostomy functioning Results & Data Vital Signs (Past 12 Hours) Vital Signs Temp Pulse Pulse Resp BP BP Pulse Ox 08/10/22 07:15 08/10/22 08:09 36.6 C 83 20 113/76 92 08/10/22 04:52 36.3 C L 107 H 20 129/75 91 08/09/22 23:00 94 H O2 Del Method O2 Flow Rate 08/10/22 07:15 Nasal Cannula 4 08/10/22 08:09 Nasal Cannula 3.5 08/10/22 04:52 Nasal Cannula 4 08/09/22 23:00 PG Care Time/CCT Total # of Minutes Spent Total Time Spent with Patient: Total time spent is greater than 50% in coordination of care (as documented) at patient's floor/unit and/or counseling patient: Coding Level of Care Code 35861 SUB INP/OBS CARE 2/35MIN Diagnoses Ascites, malignant R18.0 Leukocytosis D72.[address] Z93.2 Colonic mass K63.89
--- NOTE | 2022-08-10 15:42 | Hospitalist Progress Note ---
Date of Service August 10, 2022 Assessment & Plan (1) MSSA bacteremia: Plan: 07/30 05/09 BCx with Staph epidermidis and MSSA; I am concerned at this point given ongoing leukocytosis and had port placed for future chemo, that this is likely a true infection Fortunately repeat BCx 07/31 negative, BCx 08/06 no growth to date JULIANE on 08/08 without evidence of vegetation Infectious disease consulted and appreciate recommendations, anticipate 4 weeks of IV antibiotics as long as no other source of infection is determined that would change to this care plan, prescription provided to case management IV antibiotics via Port-A-Cath since it will not be used for chemotherapy until the patient is out of the rehab unit Case management to assist given patient's low health literacy, multiple antibiotic infusions daily, lives alone, no primary care provider; plan for discharge to rehab facility once medically stable and bed available (2) SBO (small bowel obstruction): Plan: Narrowing of the ileocecal valve with resultant upstream small bowel obstruction secondary to soft tissue prominence within the cecum and ileocecal valve suggestive of primary mucosal colonic malignancy General surgery consulted: s/p diverting ileostomy 08/02, healing well and will need outpatient follow-up (2 weeks post-op) Tolerating low fiber diet without issues Continue KCl elixir for hypokalemia As needed antiemetics and analgesics (3) Colon cancer: Plan: Patient has not seen a doctor in his adult life, needs PCP, case management assisting Soft tissue prominence within the cecum and ileocecal valve 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 Chemo to start after he is discharged from the rehab facility PT and OT evaluations ongoing for dispo planning (4) Pulmonary metastases: Plan: With acute respiratory failure with hypoxia - tolerating supplemental oxygen CT Chest with innumerable mets from colon cancer, CTA Chest 08/04 without evidence of PNA or PE Mets are suspected cause of hypoxia, multifactorial with suspected underlying undiagnosed COPD given for decades smoking history, patient quit 1 week ago and does not intend to resume smoking Continue ICS/LABA/LAMA while admitted, to continue on discharge with follow-up pulmonary function testing (5) Ascites: Plan: 2/2 metastatic disease Paracentesis performed and 6L removed on admission, repeat paracentesis 08/09 for large volume ascites on repeat CTAP Peritoneal fluid analysis on admission with elevated WBCs, Gram stain no growth, cytology positive for adenocarcinoma. 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 With LE edema on exam which is likely related to ascites and peritoneal carcinomatosis, checked ECHO normal EF, no WMA Continue tele monitoring (8) Hyponatremia: Plan: Continue to monitor, sodium on 08/08 of 136 (9) Peripheral edema: Plan: Likely 2/2 abdominal mets, hypoalbuminemia from cancer Dopplers venous LEs bilat negative ECHO without evidence of systolic or diastolic dysfunction ROXI hosiery Plan DVT proph -resume Lovenox Patient remains FULL CODE at this time Disposition: Likely discharge Saturday Admission and Anticipated Discharge Date Admission Date: July 30, 2022 Subjective Patient feels well today. Denies any chest pain or shortness of breath. Says that his belly feels softer after paracentesis done yesterday. Review of Systems Review of Systems: All systems reviewed & are unremarkable except as noted in Subjective Physical Exam Physical Exam: General: Awake, conversant. Cachectic with bitemporal and intercostal muscle wasting Heart: S1, S2/regular rate and rhythm, no murmur rubs or gallops Lungs: Diminished breath sounds bilaterally. Normal effort Abdomen: Soft/nontender/distended with ascites. Extremities: No clubbing/cyanosis. 1+ pitting bilateral edema Behavior: Appropriate, cooperative Results & Data Results & Data Vital Signs (Past 12 Hours) Vital Signs Temp Pulse Pulse Resp BP BP Pulse Ox 08/10/22 15:08 112 H 08/10/22 06:00 108 H 08/10/22 11:52 36.5 C 106 H 22 120/72 90 08/10/22 07:15 08/10/22 08:09 36.6 C 83 20 113/76 92 08/10/22 04:52 36.3 C L 107 H 20 129/75 91 O2 Del Method O2 Flow Rate 08/10/22 15:08 08/10/22 06:00 08/10/22 11:52 Nasal Cannula 3.5 08/10/22 07:15 Nasal Cannula 4 08/10/22 08:09 Nasal Cannula 3.5 08/10/22 04:52 Nasal Cannula 4 PG Care Time/CCT Total # of Minutes Spent Total Time Spent with Patient: Total time spent is greater than 50% in coordination of care (as documented) at patient's floor/unit and/or counseling patient: Coding Level of Care Code 75823 SUB INP/OBS CARE Diagnoses MSSA bacteremia R78.81; B95.61 SBO (small bowel obstruction) K56.609 Colon cancer C18.9 Colon location: unspecified part of colon Pulmonary metastases C78.01; C78.02 Laterality: bilateral Ascites R18.8 Leukocytosis D72.829 Demand ischemia of myocardium I24.8 Hyponatremia E87.1 Peripheral edema R60.9 (3) Colon cancer Colon location: unspecified part of colon Qualified Code(s): C18.9 - Malignant neoplasm of colon, unspecified (4) Pulmonary metastases Laterality: bilateral Qualified Code(s): C78.01 - Secondary malignant neoplasm of right lung; C78.02 - Secondary malignant neoplasm of left lung
[2022-08-10] MEDS: HEPARIN 100 UNIT/ML 5ML FLUSH FLUSH PRN (18:08)
[2022-08-11] MEDS: HEPARIN 100 UNIT/ML 5ML FLUSH FLUSH PRN ×4 (01:54→18:46)
[2022-08-11] MEDS: ceFAZolin 2000MG 2,000 MG/15 ML SYR IV SCH ×3 (01:54→18:46)
[2022-08-11] MEDS: ACETAMINOPHEN 325 MG TAB PO PRN ×2 (01:54→08:20)
[2022-08-11 08:01] LABS: Hematocrit (blood only) 34.9 % (42.0-52.0); Hemoglobin 11.4 g/dl (14.0-18.0); Mean Corpuscular Hgb Conc 32.7 g/dL (32.0-36.0); Mean Corpuscular Volume 88.8 fL (80.0-100.0); Mean Platelet Volume 10.3 fL (9.4-12.4); Platelet Count 340 K/uL (130-400); RDW Coefficient of Variation 14.3 % (11.5-14.5); Red Blood Count 3.93 M/uL (4.70-6.10); White Blood Count 17.64 K/ul (4.8-10.8)
[2022-08-11] MEDS: UMECLIDINIUM/VILANTEROL 62.5/25MCG 7 PUFFS/INHALER INH SCH (08:19)
[2022-08-11] MEDS: FLUTICASONE FUROATE 200MCG 14 PUFFS/INHALER INH SCH (08:19)
[2022-08-11] MEDS: POTASSIUM CHLORIDE 10 MEQ TABCR PO SCH (08:20)
[2022-08-11 08:38] LABS: Anion Gap 6 (3-11); Blood Urea Nitrogen 18 mg/dl (6-23); Calcium 7.5 mg/dl (8.6-10.3); Carbon Dioxide 25 mmol/L (21-32); Chloride 101 mmol/L (98-107); Creatinine Clr Calc Pharmacy 124.3 ml/min; Est GFR (African American) 121.5 ml/min; Est GFR (Non-African American) 104.8 ml/min; Glucose 105 mg/dl (70-99(Fasting)); Sodium 132 mmol/L (136-145)
--- NOTE | 2022-08-11 13:37 | Hospitalist Progress Note ---
Date of Service August 11, 2022 Assessment & Plan (1) MSSA bacteremia: Plan: 07/30 05/09 BCx with Staph epidermidis and MSSA; I am concerned at this point given ongoing leukocytosis and had port placed for future chemo, that this is likely a true infection Fortunately repeat BCx 07/31 negative, BCx 08/06 no growth to date JULIANE on 08/08 without evidence of vegetation Infectious disease consulted and appreciate recommendations, anticipate 4 weeks of IV antibiotics as long as no other source of infection is determined that would change to this care plan, prescription provided to case management IV antibiotics via Port-A-Cath since it will not be used for chemotherapy until the patient is out of the rehab unit Case management to assist given patient's low health literacy, multiple antibiotic infusions daily, lives alone, no primary care provider; plan for discharge to rehab facility once medically stable and bed available (2) SBO (small bowel obstruction): Plan: Narrowing of the ileocecal valve with resultant upstream small bowel obstruction secondary to soft tissue prominence within the cecum and ileocecal valve suggestive of primary mucosal colonic malignancy General surgery consulted: s/p diverting ileostomy 08/02, healing well and will need outpatient follow-up (2 weeks post-op) Tolerating low fiber diet without issues Continue KCl for hypokalemia As needed antiemetics and analgesics (3) Colon cancer: Plan: Patient has not seen a doctor in his adult life, needs PCP, case management assisting Soft tissue prominence within the cecum and ileocecal valve 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 Chemo to start after he is discharged from the rehab facility PT and OT evaluations ongoing for dispo planning (4) Pulmonary metastases: Plan: With acute respiratory failure with hypoxia - tolerating supplemental oxygen CT Chest with innumerable mets from colon cancer, CTA Chest 08/04 without evidence of PNA or PE Mets are suspected cause of hypoxia, multifactorial with suspected underlying undiagnosed COPD given for decades smoking history, patient quit 1 week ago and does not intend to resume smoking Continue ICS/LABA/LAMA while admitted, to continue on discharge with follow-up pulmonary function testing Nurse notified me of shortness of breath, tachycardia, sats in the 88 to 89% on 4 L of oxygen. He was given fluid yesterday after paracentesis. Will check chest x-ray. Possibilities include fluid overload versus worsening pulmonary metastatic disease. (5) Ascites: Plan: 2/2 metastatic disease Paracentesis performed and 6L removed on admission, repeat paracentesis 08/09 for large volume ascites on repeat CTAP Peritoneal fluid analysis on admission with elevated WBCs, Gram stain no growth, cytology positive for adenocarcinoma. 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 With LE edema on exam which is likely related to ascites and peritoneal carcinomatosis, checked ECHO normal EF, no WMA Continue tele monitoring (8) Hyponatremia: Plan: Continue to monitor, sodium on 08/08 of 136 (9) Peripheral edema: Plan: Likely 2/2 abdominal mets, hypoalbuminemia from cancer Dopplers venous LEs bilat negative ECHO without evidence of systolic or diastolic dysfunction ROXI jacobs Plan DVT proph -resume Lovenox Patient remains FULL CODE at this time Disposition: Likely discharge Saturday Admission and Anticipated Discharge Date Admission Date: July 30, 2022 Subjective Patient states that he feels relatively well today. However the nurse noted that he appeared to be short of breath and is saturating at 88 to 89% on 4 L of oxygen Review of Systems Review of Systems: All systems reviewed & are unremarkable except as noted in Subjective Physical Exam Physical Exam: General: Awake, conversant. Cachectic with bitemporal and intercostal muscle wasting Heart: S1, S2/regular rate and rhythm, no murmur rubs or gallops Lungs: Diminished breath sounds bilaterally. Normal effort Abdomen: Soft/nontender/distended with ascites. Extremities: No clubbing/cyanosis. 1+ pitting bilateral edema Behavior: Appropriate, cooperative Results & Data Results & Data Vital Signs (Past 12 Hours) Vital Signs Temp Pulse Pulse Resp BP Pulse Ox O2 Del Method 08/11/22 11:23 36.4 C L 124 H 22 117/76 90 Nasal Cannula 08/11/22 08:02 120 H 08/11/22 07:51 Oxymask 08/11/22 07:18 36.4 C L 102 H 20 117/78 90 Oxymask 08/11/22 02:55 36.7 C 72 18 145/74 H 93 Oxymask O2 Flow Rate 08/11/22 11:23 5 08/11/22 08:02 08/11/22 07:51 3.5 08/11/22 07:18 4 08/11/22 02:55 3.5 PG Care Time/CCT Total # of Minutes Spent Total Time Spent with Patient: Total time spent is greater than 50% in coordination of care (as documented) at patient's floor/unit and/or counseling patient: Coding Level of Care Code 98217 SUB INP/OBS CARE MIN Diagnoses MSSA bacteremia R78.81; B95.61 SBO (small bowel obstruction) K56.609 Colon cancer C18.9 Colon location: unspecified part of colon Pulmonary metastases C78.01; C78.02 Laterality: bilateral Ascites R18.8 Leukocytosis D72.829 Demand ischemia of myocardium I24.8 Hyponatremia E87.1 Peripheral edema R60.9 (3) Colon cancer Colon location: unspecified part of colon Qualified Code(s): C18.9 - Malignant neoplasm of colon, unspecified (4) Pulmonary metastases Laterality: bilateral Qualified Code(s): C78.01 - Secondary malignant neoplasm of right lung; C78.02 - Secondary malignant neoplasm of left lung
--- NOTE | 2022-08-11 13:49 | XRay Report ---
XR chest 1V portable CLINICAL HISTORY: SOB, increasing O2 needs COMPARISON STUDY: Chest radiograph August 02, 2022. Chest CT August 04, 2022. FINDINGS: Left subclavian [id number] is in place. Extensive pulmonary metastases are again noted. There are small bilateral pleural effusions. There is no pneumothorax. Cardiomediastinal silhouette i s stable. Possible superimposed pulmonary edema. IMPRESSION: 1. Extensive pulmonary metastases. 2. Small bilateral pleural effusions. Possible interstitial pulmonary edema. ACT 112: Negative or not required by law. Electronically signed by: Jose Cordova M.D. 08/11/2022 1:48 PM
[2022-08-11] MEDS ORDERED: FUROSEMIDE INJ 20 MG/2 ML VIAL IV ONE (13:59)
[2022-08-11] MEDS: MELATONIN 3 MG TAB PO PRN (23:40)
[2022-08-12] MEDS: ceFAZolin 2000MG 2,000 MG/15 ML SYR IV SCH ×3 (02:18→18:38)
[2022-08-12] MEDS: HEPARIN 100 UNIT/ML 5ML FLUSH FLUSH PRN ×3 (02:19→18:38)
[2022-08-12] MEDS: ACETAMINOPHEN 325 MG TAB PO PRN (02:46)
[2022-08-12] MEDS: MoRPHine SULFATE 2 MG/ML CARP IV PRN (03:11)
[2022-08-12] MEDS: FLUTICASONE FUROATE 200MCG 14 PUFFS/INHALER INH SCH (08:52)
[2022-08-12] MEDS: POTASSIUM CHLORIDE 10 MEQ TABCR PO SCH (08:52)
[2022-08-12] MEDS: UMECLIDINIUM/VILANTEROL 62.5/25MCG 7 PUFFS/INHALER INH SCH (08:52)
[2022-08-12] MEDS ORDERED: FUROSEMIDE 20 MG TAB PO ONE (15:32)
[2022-08-12] MEDS ORDERED: traMADol HCL 50 MG TABLET PO PRN (15:33)
--- NOTE | 2022-08-12 15:38 | Hospitalist Progress Note ---
Date of Service August 12, 2022 Assessment & Plan (1) MSSA bacteremia: Plan: 07/30 1 BCx with Staph epidermidis and MSSA; I am concerned at this point given ongoing leukocytosis and had port placed for future chemo, that this is likely a true infection Fortunately repeat BCx 07/31 negative, BCx 08/06 no growth to date JULIANE on 08/08 without evidence of vegetation Infectious disease consulted and appreciate recommendations, anticipate 4 weeks of IV antibiotics as long as no other source of infection is determined that would change to this care plan, prescription provided to case management IV antibiotics via Port-A-Cath since it will not be used for chemotherapy until the patient is out of the rehab unit Case management to assist given patient's low health literacy, multiple antibiotic infusions daily, lives alone, no primary care provider; plan for discharge to rehab facility when bed available (2) SBO (small bowel obstruction): Plan: Narrowing of the ileocecal valve with resultant upstream small bowel obstruction secondary to soft tissue prominence within the cecum and ileocecal valve suggestive of primary mucosal colonic malignancy General surgery consulted: s/p diverting ileostomy 08/02, healing well and will need outpatient follow-up (2 weeks post-op) Tolerating low fiber diet without issues Discontinue KCl as potassium rising As needed antiemetics and analgesics (3) Colon cancer: Plan: Patient has not seen a doctor in his adult life, needs PCP, case management assisting Soft tissue prominence within the cecum and ileocecal valve 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 Chemo to start after he is discharged from the rehab facility PT and OT evaluations ongoing for dispo planning (4) Pulmonary metastases: Plan: With acute respiratory failure with hypoxia - tolerating supplemental oxygen CT Chest with innumerable mets from colon cancer, CTA Chest 08/04 without evidence of PNA or PE Mets are suspected cause of hypoxia, multifactorial with suspected underlying undiagnosed COPD given for decades smoking history, patient quit 1 week ago and does not intend to resume smoking Continue ICS/LABA/LAMA while admitted, to continue on discharge with follow-up pulmonary function testing Nurse notified me of shortness of breath, tachycardia, sats in the 88 to 89% on 4 L of oxygen. Chest x-ray showed some pulmonary edema thus he was given a dose of IV Lasix yesterday He diuresed in response to IV Lasix yesterday Will give him another dose of p.o. Lasix today. Check BMP in a.m. (5) Ascites: Plan: 2/2 metastatic disease Paracentesis performed and 6L removed on admission, repeat paracentesis 08/09 for large volume ascites on repeat CTAP Peritoneal fluid analysis on admission with elevated WBCs, Gram stain no growth, cytology positive for adenocarcinoma. 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 With LE edema on exam which is likely related to ascites and peritoneal carcinomatosis, checked ECHO normal EF, no WMA Continue tele monitoring (8) Hyponatremia: Plan: Continue to monitor, sodium on 4/5 of 136 (9) Peripheral edema: Plan: Likely 2/2 abdominal mets, hypoalbuminemia from cancer Dopplers venous LEs bilat negative ECHO without evidence of systolic or diastolic dysfunction ROXI jacobs Plan DVT proph -resume Lovenox Patient remains FULL CODE at this time Disposition: Likely discharge Saturday Admission and Anticipated Discharge Date Admission Date: July 30, 2022 Subjective Patient states that he feels relatively well today. But is going through emotional turmoil because of his new diagnosis Review of Systems Review of Systems: All systems reviewed & are unremarkable except as noted in Subjective Physical Exam Physical Exam: General: Awake, conversant. Cachectic with bitemporal and intercostal muscle wasting Heart: S1, S2/regular rate and rhythm, no murmur rubs or gallops Lungs: Diminished breath sounds bilaterally. Normal effort Abdomen: Soft/nontender/distended with ascites. Extremities: No clubbing/cyanosis. 1+ pitting bilateral edema Behavior: Appropriate, cooperative Results & Data Results & Data Vital Signs (Past 12 Hours) Vital Signs Temp Pulse Pulse Resp BP BP Pulse Ox 08/12/22 15:21 111 H 08/12/22 12:35 36.6 C 115 H 22 109/71 91 08/12/22 09:45 110 H 08/12/22 09:15 08/12/22 07:33 36.4 C L 101 H 21 120/86 94 08/12/22 03:52 36.3 C L 107 H 17 125/83 93 O2 Del Method O2 Flow Rate 08/12/22 15:21 08/12/22 12:35 Nasal Cannula 4 08/12/22 09:45 08/12/22 09:15 Nasal Cannula 4 08/12/22 07:33 Nasal Cannula 4.5 08/12/22 03:52 Nasal Cannula 4 PG Care Time/CCT Total # of Minutes Spent Total Time Spent with Patient: Total time spent is greater than 50% in coordination of care (as documented) at patient's floor/unit and/or counseling patient: Coding Level of Care Code 77355 SUB INP/OBS CARE MIN Diagnoses MSSA bacteremia R78.81; B95.61 SBO (small bowel obstruction) K56.609 Colon cancer C18.9 Colon location: unspecified part of colon Pulmonary metastases C78.01; C78.02 Laterality: bilateral Ascites R18.8 Leukocytosis D72.829 Demand ischemia of myocardium I24.8 Hyponatremia E87.1 Peripheral edema R60.9 (3) Colon cancer Colon location: unspecified part of colon Qualified Code(s): C18.9 - Malignant neoplasm of colon, unspecified (4) Pulmonary metastases Laterality: bilateral Qualified Code(s): C78.01 - Secondary malignant neoplasm of right lung; C78.02 - Secondary malignant neoplasm of left lung
[2022-08-13] MEDS: MELATONIN 3 MG TAB PO PRN (01:24)
[2022-08-13] MEDS: HEPARIN 100 UNIT/ML 5ML FLUSH FLUSH PRN ×2 (01:27→10:48)
[2022-08-13] MEDS: ceFAZolin 2000MG 2,000 MG/15 ML SYR IV SCH ×2 (01:27→10:48)
[2022-08-13] MEDS: ACETAMINOPHEN 325 MG TAB PO PRN (04:50)
[2022-08-13 07:06] LABS: BUN Creatinine Ratio 34.7 (10-20); Calcium 7.6 mg/dl (8.6-10.3); Creatinine Clr Calc Pharmacy 156.8 ml/min; Est GFR (African American) 133.8 ml/min; Est GFR (Non-African American) 115.5 ml/min; Potassium 5.1 mmol/L (3.5-5.1)
[2022-08-13] MEDS: FLUTICASONE FUROATE 200MCG 14 PUFFS/INHALER INH SCH (08:43)
--- NOTE | 2022-08-13 09:09 | Surgery Progress Note ---
I have seen and examined this patient today. I agree with the surgical PA's assessment. The patient is leaving for rehab today. I removed the ileostomy supporting ginger. Patient should continue with medical oncology and plan for CTX if still appropriate. The medi port has remained in place. May follow up with surgery as needed. Date of Service August 13, 2022 Assessment & Plan (1) Ileostomy in place: Plan: Patient s/p mediport placement and diverting loop ileostomy for stage 4 colon ca no abdominal complaints. all incisions c/d/i without evidence of infection he is tolerating a low fiber diet. ostomy is viable and functioning well ID following for abx guidance continue low fiber diet. when medically stable for discharge f/u in clinic with Dr. Domingo in 1-2 weeks Admission and Anticipated Discharge Date Admission Date: July 30, 2022 Subjective Patient is feeling well. Denies any abdominal complaints. Reports feeling some relief after paracentesis on saturday. on nasal cannula. tolerating diet, no n/v. ostomy functioning. reports he is not sleeping well on hospital bed. Physical Exam Physical Exam: awake/alert, no distress Gastrointestinal (Abdomen): Inspection/Auscultation: + abdomen distended (softly distended, unchanged) and + abdominal surgical incision (c/d/i with no signs of infection) ostomy viable, + stool in bag Results & Data Vital Signs (Past 12 Hours) Vital Signs Temp Pulse Pulse Resp BP BP Pulse Ox 08/13/22 08:18 08/13/22 07:29 36.5 C 109 H 20 115/77 92 08/13/22 07:15 101 H 08/13/22 03:30 18 93 08/13/22 03:17 36.5 C 106 H 28 H 126/83 92 08/13/22 00:00 08/12/22 22:00 108 H 08/12/22 22:53 36.8 C 116 H 22 133/86 91 Pulse Ox O2 Del Method O2 Del Method O2 Flow Rate O2 Flow Rate 08/13/22 08:18 Nasal Cannula 4 08/13/22 07:29 Nasal Cannula 4 08/13/22 07:15 08/13/22 03:30 Nasal Cannula 4 08/13/22 03:17 Nasal Cannula 4 08/13/22 00:00 93 Nasal Cannula 4 08/12/22 22:00 08/12/22 22:53 Nasal Cannula 4 PG Care Time/CCT Total # of Minutes Spent Total Time Spent with Patient: Total time spent is greater than 50% in coordination of care (as documented) at patient's floor/unit and/or counseling patient: Coding Level of Care Code 56271 Post Operative Follow-Up Diagnoses Ileostomy in place Z93.2
[2022-08-13] MEDS: UMECLIDINIUM/VILANTEROL 62.5/25MCG 7 PUFFS/INHALER INH SCH (09:21)
--- NOTE | 2022-08-13 10:34 | Discharge Summary ---
Date of Service August 13, 2022 Admission HPI Per Admitting Provider Redd Puckett is a 62-year-old male with no known past medical history and no PCP who presented today referred from urgent care due to abdominal pain and swelling. Patient had presented mostly for a gradual buildup of fluid in his abdomen over the past few months. He did report abdominal pain and shortness of breath on exertion. The patient states he never had a regular doctor and had not had any preventative medical care. 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 There is narrowing of the ileocecal valve with resultant upstream small bowel obstruction. Extensive pulmonary metastasis is noted in conjunction with metastatic lymphadenopathy of the chest and abdomen along with hepatic, omental and peritoneal carcinomatosis. Large volume of abdominal pelvic ascites. Questioned filling defects within the left external iliac vein is likely secondary to mixing artifact. As a precautionary measure, correlation with lower extremity Doppler recommended to exclude a DVT. Lab work showed WBC of 12.14, Hgb 12.1, Plt count 531. Sodium level 131, BUN 27 creatinine 0.97, calcium 8.5, AST 53, ALT 48, alk phos 437, troponin 31.3. Procalcitonin 5.39, CEA 70.1. At this time he continues to report abdominal bloating, discomfort, and difficulty taking deep breaths. Can't specify when last BM was but not within past few days. Denies f/c, n/v, CP, palp, HARDING, dizziness. He is understandably concerned/distraught about his cancer diagnosis and is interested in discussing possible treatment options. Admission Exam Per Admitting Provider GENERAL: A&Ox3. NAD. HEENT: PERRL, EOMI. Moist mucous membranes. NECK: No JVD. No lymphadenopathy. CHEST/LUNGS: CTAB A/P. No crackles, wheezes, rales, rhonchi. HEART: RRR. No m/g/r. No carotid bruits. ABDOMEN: NT/ND, soft. BS+ x4 EXTREMITIES: No cyanosis, no clubbing, no edema SKIN: Warm and dry. No rashes or lesions. NEUROLOGIC: No FND. Principal Diagnosis Colon cancer with metastases to lung, peritoneal cavity, Small bowel obstruction due to colon cancer status post diverting ileostomy on 08/02, MSSA bacteremia, unknown source. Will be discharged on IV Ancef Ascites due to metastatic disease. Cytology positive for adenocarcinoma Leukocytosis most likely secondary to malignancy Demand ischemia of myocardium Hyponatremia Peripheral edema secondary to abdominal ascites and hypoalbuminemia Severe protein calorie malnutrition Generalized weakness Discharge Exam General: Awake, conversant. Cachectic with bitemporal and intercostal muscle wasting Heart: S1, S2/regular rate and rhythm, no murmur rubs or gallops Lungs: Diminished breath sounds bilaterally. Normal effort Abdomen: Soft/nontender/distended with ascites. Extremities: No clubbing/cyanosis. 1+ pitting bilateral edema Behavior: Appropriate, cooperative Discharge Data Allergies Allergy/AdvReac Type Severity Reaction Status Date / Time No Known Allergies Allergy Unverified 07/30/22 19:24 Consultations 07/30/22 17:11 Consult General Surgery Stat 07/30/22 17:37 ED Decision to Admit Stat 07/31/22 08:00 Consult Oncology Routine 08/01/22 08:56 Consult Palliative Care Routine 08/06/22 10:02 Consult Infectious Diseases Routine 08/07/22 14:22 Consult Cardiology Routine 08/08/22 07:22 Consult Anesthesiology Routine Procedures Performed Operation Date: 08/08/22 07:30 Actual Procedures p Echo Transesophageal - Moisés Grant MD s Echo Color Flow - Moisés Grant MD s Echo Doppler Complete - Moisés Grant MD Ordered Studies 07/30/22 12:53 CT abd pelvis IV con only Stat 07/30/22 17:08 US leg [US venous doppler LE BI] Stat 07/31/22 21:10 IR paracentesis abd w/img US Routine 08/01/22 09:23 CT chest diagnostic w con Urgent 08/02/22 14:00 FL fluoro (infusaport) to 1 hr Routine 08/04/22 08:10 CT angio chest PE protocol Urgent 08/07/22 14:20 CT Abd and Pelvis [CT abd pelvis IV con only] Urgent 08/09/22 14:42 IR paracentesis abd w/img US Routine Hospital Course (1) MSSA bacteremia: 07/30 1/4 BCx with Staph epidermidis and MSSA; I am concerned at this point given ongoing leukocytosis and had port placed for future chemo, that this is likely a true infection Fortunately repeat BCx 07/31 negative, BCx 08/06 no growth to date JULIANE on 08/08 without evidence of vegetation Infectious disease consulted and appreciate recommendations, anticipate 4 weeks of IV antibiotics as long as no other source of infection is determined that would change to this care plan IV antibiotics via Port-A-Cath since it will not be used for chemotherapy until the patient is out of the rehab unit (2) SBO (small bowel obstruction): Narrowing of the ileocecal valve with resultant upstream small bowel obstruction secondary to soft tissue prominence within the cecum and ileocecal valve suggestive of primary mucosal colonic malignancy General surgery consulted: s/p diverting ileostomy 08/02, healing well and will need outpatient follow-up (2 weeks post-op) Tolerating low fiber diet without issues As needed antiemetics and analgesics (3) Colon cancer: Patient has not seen a doctor in his adult life, needs PCP, case management assisting Soft tissue prominence within the cecum and ileocecal valve 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 Chemo to start after he is discharged from the rehab facility PT and OT evaluations ongoing for dispo planning (4) Pulmonary metastases: With acute respiratory failure with hypoxia - tolerating supplemental oxygen CT Chest with innumerable mets from colon cancer, CTA Chest 08/04 without evidence of PNA or PE Mets are suspected cause of hypoxia, multifactorial with suspected underlying undiagnosed COPD given for decades smoking history, patient quit 1 week ago and does not intend to resume smoking Continue ICS/LABA/LAMA while admitted, to continue on discharge with follow-up pulmonary function testing (5) Ascites: 2/2 metastatic disease Paracentesis performed and 6L removed on admission, repeat paracentesis 08/09 for large volume ascites on repeat CTAP Peritoneal fluid analysis on admission with elevated WBCs, Gram stain no growth, cytology positive for adenocarcinoma. 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 Palliative care should follow the patient outpatient given metastatic cancer and poor prognosis. Disposition: Discharged today Total Time Total Time Spent Total Time Spent (In Minutes): 35 Discharge Plan Discharge Items Patient Disposition: Transfer [facility] Reason For Visit: ABDOMINAL SWELLING/PAIN Discharge Diagnosis: Metastatic colon cancer to lung and peritoneal cavity, small bowel obstruction status post diverting ileostomy, MSSA bacteremia, severe protein calorie malnutrition, generalized weakness Activity: As commented below Activity Comment: Per PT/OT recommendations Lifting: No more than 10 pounds Bathing Comment: may shower; no soaking in tubs/pools2 Exercise/Sports: Wait until after follow-up appointment Driving/Machine Use: no driving while on narcotics for pain Non-emergency contact: Primary Care Provider, Surgeon and Oncologist Call non-emergency contact if: you have any medication questions, your symptoms worsen, your pain is not controlled, you have a fever, your temperature is above 101.5, your wound has increased redness, your wound has increased drainage and your wound pain has increased Follow-up/Referrals: Reese Domingo DO [Physician] - (follow up in clinic within 2 weeks) PCP,NO [Primary Care Provider] - Diet: Low Fiber Addtl Attending Provider Instructions: Advised to follow-up with PCP in 1 week Advised to follow-up with surgery in 1 week Advised to follow-up with oncology in 1 week of discharge from rehab Advised to note that patient had a left [id number] insertion done on 08/02/2022 and is going to the rehab with the port in place. This is intended for chemotherapy eventually when he is discharged from rehab but it can be accessed for antibiotic use in the interim. IV Ancef to continue through 08/28/22, with weekly CBC and CMP to monitor and with repeat blood cultures in 3-5 days after completion of antibiotics to ensure no seeding of bacteremia. Pending Studies at Discharge: No Stand-Alone Forms: My [facility] Skilled Items Patient informed of condition?: Yes DNR: No Discharge Level of Care: Skilled Communicable Disease: No Discharge Prognosis: Stable Lines: Serna Urinary Catheter: No Medications and DC Order Prescriptions: New acetaminophen 325 mg Tablet 650 mg PO Q4H PRN (Reason: fever or pain) Qty: 30 0RF ipratropium-albuterol 0.5 mg-3 mg(2.5 mg base)/3 mL Solution For Nebulization 3 ml inhalation Q6R PRN (Reason: shortness of breath or wheezing) Qty: 90 0RF cefazolin 2 gram recon soln 2 g IV Q8H Qty: 25 0RF Discontinued naproxen sodium [Aleve] 220 mg Tablet 220 mg PO BID PRN (Reason: Pain) Discharge Orders: Discharge Order (Routine); Ordered 08/13/22 Ordered By: Bryn Domínguez Admission Data Admit Date/Time: 07/30/22 18:39 Attending Provider: Bryn Domínguez Admit Provider: Rashaad Soto Primary Care Provider: PCP,NO Other Providers: Reese Domingo ; Stas Zimmerman ; Bobbi Díaz ; Roselia Major ; Indu Deluca ; Anam Momin ; Paola Machado ; Alen Quintana ; Marlee Lee ; Pallavi Bustos ; aKry Sher Antonie J. ; Ramonita Burnett ; [facility] ; Moisés Grant Other Interventions: Discharge Summary Assessment (RN) Last Done: 08/13/22 12:06 Coding Level of Care Code 99660 INP/OBS DISCH >30 MIN Diagnoses MSSA bacteremia R78.81; B95.61 SBO (small bowel obstruction) K56.609 Colon cancer C18.9 Colon location: unspecified part of colon Pulmonary metastases C78.01; C78.02 Laterality: bilateral Ascites R18.8 Leukocytosis D72.829 Demand ischemia of myocardium I24.8 Hyponatremia E87.1 Peripheral edema R60.9
== END 2022-08-13 13:16 | DRG 329 ==
LOC: ED 11:59 → SUATTDRO 18:39 → EDINP 18:39 → 4W 07-31 04:25

== ENCOUNTER 2022-08-20 02:27 | Inpatient (IN) ==
--- NOTE | 2022-08-20 02:51 | Emergency Department Note ---
History of Present Illness General Chief complaint: Shortness of Breath/Dyspnea Stated complaint: BREATHING DIFFICULTY History of Present Illness 62-year-old male presents via EMS from [facility] facility reportedly recently diagnosed with metastatic lung disease lung mass ascites CHF. Patient was recently in our facility and was discharged to [place] [facility]. EMS states this evening they received a call for increased shortness of breath he is typically on 4 L of oxygen he states. Patient in the hospital notes had a Pap care consult and the CODE STATUS at the [facility] facility states full code. Patient's had increased work of breathing he states much improved after neb treatment. Patient states this has been ongoing for the past 24 hours. Patient states swelling to his abdomen and legs. Home Medications Medication Instructions Recorded Confirmed Type cefazolin 2 gram intravenous 2 g IV Q8H #25 ea 08/13/22 08/20/22 Rx solution Morphine Sulfate 5 - 10 mg PO Q4H PRN Pain (Scale 08/20/22 08/20/22 History Score 9-10) acetaminophen 325 mg tablet 650 mg PO Q6H PRN fever or pain 08/20/22 08/20/22 History heparin lock flush (porcine) 10 0 unit IV TID 08/20/22 08/20/22 History unit/mL intravenous solution ipratropium 0.5 mg-albuterol 3 mg 3 ml inhalation Q6H PRN shortness 08/20/22 08/20/22 History (2.5 mg base)/3 mL nebulization of breath or wheezing soln lorazepam 0.5 mg tablet 0.5 mg PO Q6H PRN Anxiety 08/20/22 08/20/22 History sodium chloride 0.9 % (flush) 10 ml IV Q8H 08/20/22 08/20/22 History spironolactone 50 mg tablet 50 mg PO BID 08/20/22 08/20/22 History Allergies Allergy/AdvReac Type Severity Reaction Status Date / Time No Known Allergies Allergy Verified 08/20/22 02:34 Past Med/Surg History Medical History Abdominal pain, generalized Advanced care planning/counseling discussion Ascites Cancer related pain Palliative care by specialist Surgical History Ileostomy in place (08/02/22) p Laparoscopic Loop Ilieostomy(Not Applicable) - Reese Domingo DO s Infusaport Insertion(Left) - Arie Ramon MD, FACS Port-A-Cath in place (08/02/22) p Laparoscopic Loop Ilieostomy(Not Applicable) - Reese Domingo DO s Infusaport Insertion(Left) - Arie Ramon MD, FACS Social History Smoking Status: Former smoker Hx Alcohol Use: Yes Hx Substance Use: No Communication Ability: Effective Director Of Student Financial Aid Required: No Beliefs That Will Affect Care: Spiritual Current Living Situation: Alone Feels Safe at Home: Yes Assistive Devices: None Review of Systems A total of 10 systems reviewed and were otherwise negative Respiratory: + dyspnea and + dyspnea on exertion Physical Exam Vital Signs Vital Signs - 24 hr 08/20/22 02:41 08/20/22 02:46 08/20/22 02:46 Pulse Rate 126 H Pulse Rate [Finger] Pulse Rhythm [Finger] Respiratory Rate 28 H Respiratory Effort / Characteristics Accessory Muscle Use Accessory Muscle Use Respiratory Depth Deep Deep Respiratory Pattern Regular Blood Pressure 97/72 L Blood Pressure [Right Arm] Blood Pressure Mean 80 Blood Pressure Mean [Right Arm] Pulse Oximetry 83 L 83 L Oxygen Delivery Method Non-rebreather Non-rebreather Non-rebreather Oxygen Flow Rate 15 15 15 Fraction of Inspired Oxygen Sepsis Recent Fever Within 48 Hours Yes Sepsis New/Unexplained Change in Mental Status No Sepsis Action Taken by Nursing Previously Notified 08/20/22 02:46 08/20/22 03:11 08/20/22 03:03 Pulse Rate 125 H Pulse Rate [Finger] 122 H 123 H Pulse Rhythm [Finger] Regular Respiratory Rate 28 H 26 H 28 H Respiratory Effort / Characteristics Respiratory Depth Respiratory Pattern Blood Pressure Blood Pressure [Right Arm] 101/63 91/68 L Blood Pressure Mean Blood Pressure Mean [Right Arm] 75 75 Pulse Oximetry 83 L 92 84 L Oxygen Delivery Method Non-rebreather Non-rebreather Non-rebreather Oxygen Flow Rate 15 15 15 Fraction of Inspired Oxygen Sepsis Recent Fever Within 48 Hours Sepsis New/Unexplained Change in Mental Status Sepsis Action Taken by Nursing 08/20/22 03:45 08/20/22 02:32 Pulse Rate 123 H 128 H Pulse Rate [Finger] Pulse Rhythm [Finger] Respiratory Rate 24 Respiratory Effort / Characteristics Spontaneous Short of Breath Respiratory Depth Normal Respiratory Pattern Regular Blood Pressure Blood Pressure [Right Arm] Blood Pressure Mean Blood Pressure Mean [Right Arm] Pulse Oximetry 93 Oxygen Delivery Method Oxygen Flow Rate Fraction of Inspired Oxygen 100 Sepsis Recent Fever Within 48 Hours Sepsis New/Unexplained Change in Mental Status Sepsis Action Taken by Nursing GENERAL: Patient is awake alert in mild respiratory distress however speaking in full sentences, cachectic, very sick appearing EYES: The conjunctivae are clear. The pupils are round and reactive. EARS, NOSE, MOUTH AND THROAT: The nose is without any evidence of any deformity. Mucous membranes are moist. Tongue is midline. NECK: The neck is nontender and supple. RESPIRATORY: Breath sounds anteriorly sound normal, patient has slight increased work of breathing CARDIOVASCULAR: Regular rate and rhythm noted there no murmurs rubs or gallops normal S1 normal S2. GASTROINTESTINAL: The abdomen is soft. Abdomen is nontender. Abdomen is di stended BACK: Full range of motion MUSCULOSKELETAL/EXTREMITIES: Bilateral lower extremity pitting edema SKIN: Pale NEUROLOGIC: Patient is awake alert and oriented Psych normal affect Course Reevaluation(s) Reevaluation #1: Patient was given IV antibiotics, was on a nonrebreather, on my reexamination the patient actually took the nonrebreather off he states that he felt much improved although his pulse oximetry was 75%. Patient was placed on BiPAP. Time: 04:06 Consultations Consultation #1: Case was discussed with the [facility] for admission Time: 04:06 Administered Medications Discontinued Medications Furosemide (Furosemide 40 Mg/4 Ml Vial) 40 mg IV ONE ONE Stop: 08/20/22 02:55 Last Admin: 08/20/22 03:11 Dose: 40 mg Documented By: ETIENNE Cefepime HCl (Maxipime) 2,000 mg in 20 mls @ 5 mls/min IV NOW STA; Protocol Stop: 08/20/22 03:47 Last Admin: 08/20/22 03:54 Dose: 5 mls/min Documented By: BASHIR Critical Care Time Critical Care Time: Yes Total Critical Care Time: 45 I have personally spent greater than 45 minutes of critical care time in the direct management of this patient. This includes bedside care, interpretation of diagnostic studies, and testing, discussion with consultants, patient, and family members, and other required patient management activities. These minutes are in excess of all separately billable procedures. Medical Decision Making Medical Records Attestation: I reviewed the patient's medical records. Home Medications Current Medication List: was personally reviewed by me Laboratory Data Attestation: I reviewed the patient's lab results. Patient has an elevated white blood cell count low sodium 08/20/22 02:39 08/20/22 02:39 Lab Results 08/20/22 08/20/22 08/20/22 Range/Units 02:35 02:39 02:39 WBC 26.30 H (4.8-10.8) K/ul RBC 3.93 L (4.70-6.10) M/uL Hgb 11.5 L (14.0-18.0) g/dl Hct 36.2 L (42.0-52.0) % MCV 92.1 (80.0-100.0) fL MCH 29.3 (25.0-34.0) pg MCHC 31.8 L (32.0-36.0) g/dL RDW Std Deviation 52.1 H (36.4-46.3) fL RDW Coeff of Andrew 15.8 H (11.5-14.5) % Plt Count 391 (130-400) K/uL MPV 9.7 (9.4-12.4) fL Immature Gran % (Auto) 0.8 % Neut % (Auto) 94.3 % Lymph % (Auto) 1.6 % [place] % (Auto) 3.1 % Eos % (Auto) 0.0 % Baso % (Auto) 0.2 % Neut # (Auto) 24.82 H (1.40-6.50) K/uL Lymph # (Auto) 0.41 L (1.2-3.4) K/uL [place] # (Auto) 0.82 H (0.11-0.59) K/uL Eos # (Auto) 0.00 (0-0.50) K/uL Baso # (Auto) 0.04 (0-0.2) K/uL Immature Gran # (Auto) 0.21 H (0.01-0.20) K/uL Echinocytes 1+ PT (9.0-12.0) Seconds INR (0.9-1.1) APTT (21.0-31.0) Seconds PTT Ratio VBG pH (7.36-7.41) VBG pCO2 (38-50) mmHg VBG pO2 mmHg VBG HCO3 mmol/L VBG O2 Saturation % VBG Base Excess mEq/L Sodium (136-145) mmol/L Potassium (3.5-5.1) mmol/L Chloride (98-107) mmol/L Carbon Dioxide (21-32) mmol/L Anion Gap (3-11) BUN (6-23) mg/dl Creatinine (0.6-1.4) mg/dl Est Cr Clr Drug Dosing ml/min Est GFR ( Amer) ml/min Est GFR (Non-Af Amer) ml/min BUN/Creatinine Ratio (10-20) Glucose (70-99(Fasting)) mg/dl Calcium (8.6-10.3) mg/dl Magnesium (1.7-2.4) mg/dl Total Bilirubin (0.2-1.0) mg/dl AST (13-39) U/L ALT (7-52) U/L Alkaline Phosphatase (34-104) U/L Troponin I High Sens (0-20) pg/ml B-Natriuretic Peptide 58 (0-100) pg/ml Total Protein (6.0-8.3) gm/dl Albumin (3.4-5.0) gm/dl Globulin (2.5-4.0) gm/dl Albumin/Globulin Ratio (0.9-2) SARS-CoV-2, RNA, NAAT NEGATIVE (NEGATIVE) 08/20/22 08/20/22 08/20/22 Range/Units 02:39 02:39 02:44 WBC (4.8-10.8) K/ul RBC (4.70-6.10) M/uL Hgb (14.0-18.0) g/dl Hct (42.0-52.0) % MCV (80.0-100.0) fL MCH (25.0-34.0) pg MCHC (32.0-36.0) g/dL RDW Std Deviation (36.4-46.3) fL RDW Coeff of Andrew (11.5-14.5) % Plt Count (130-400) K/uL MPV (9.4-12.4) fL Immature Gran % (Auto) % Neut % (Auto) % Lymph % (Auto) % [place] % (Auto) % Eos % (Auto) % Baso % (Auto) % Neut # (Auto) (1.40-6.50) K/uL Lymph # (Auto) (1.2-3.4) K/uL [place] # (Auto) (0.11-0.59) K/uL Eos # (Auto) (0-0.50) K/uL Baso # (Auto) (0-0.2) K/uL Immature Gran # (Auto) (0.01-0.20) K/uL Echinocytes PT 11.0 (9.0-12.0) Seconds INR 1.0 (0.9-1.1) APTT 25.0 (21.0-31.0) Seconds PTT Ratio 0.9 VBG pH 7.26 L (7.36-7.41) VBG pCO2 56 H (38-50) mmHg VBG pO2 37 mmHg VBG HCO3 25 mmol/L VBG O2 Saturation < 60.0 % VBG Base Excess -2.8 mEq/L Sodium 129 L (136-145) mmol/L Potassium 5.4 H (3.5-5.1) mmol/L Chloride 100 (98-107) mmol/L Carbon Dioxide 25 (21-32) mmol/L Anion Gap 4 (3-11) BUN 27 H (6-23) mg/dl Creatinine 0.87 (0.6-1.4) mg/dl Est Cr Clr Drug Dosing 88.6 ml/min Est GFR ( Amer) 105.7 ml/min Est GFR (Non-Af Amer) 91.2 ml/min BUN/Creatinine Ratio 31.0 H (10-20) Glucose 126 H (70-99(Fasting)) mg/dl Calcium 8.1 L (8.6-10.3) mg/dl Magnesium 1.9 (1.7-2.4) mg/dl Total Bilirubin 0.4 (0.2-1.0) mg/dl AST 63 H (13-39) U/L ALT 24 (7-52) U/L Alkaline Phosphatase 700 H (34-104) U/L Troponin I High Sens 29.4 H (0-20) pg/ml B-Natriuretic Peptide (0-100) pg/ml Total Protein 5.2 L (6.0-8.3) gm/dl Albumin 2.2 L (3.4-5.0) gm/dl Globulin 3.0 (2.5-4.0) gm/dl Albumin/Globulin Ratio 0.7 L (0.9-2) SARS-CoV-2, RNA, NAAT (NEGATIVE) Imaging Data Attestation: I personally reviewed and interpreted this imaging study as follows: My Impression: Chest x-ray interpreted by me florid pulmonary edema versus metastatic disease with a right lung mass present ECG Data Attestation: I personally reviewed and interpreted this ECG as follows: Additional Comments: EKG interpreted by me sinus tachycardia rate of 127 normal intervals normal axis no obvious ST segment elevation or depression Telemetry was ordered by me, interpreted as sinus tachycardia rate of 125 MDM Narrative Medical decision making differential diagnosis includes CHF, pneumonia, pulmonary edema, lung cancer, ascites, sepsis, electrolyte abnormality Plan is to check labs, EKG, chest x-ray EMS gave me bedside report Patient's recent admission and consults were reviewed by me Patient was started on IV antibiotics empirically, and also given IV Lasix I have held giving any IV fluids as this patient's lung valentino are either pulmo nary edema or metastatic disease which is difficult to differentiate at this time. Patient has a MAP that is greater than 65 therefore I do not think that the patient requires a 30 mL/kg IV bolus of fluids. Patient was started on BiPAP I reviewed his medical records. Case was discussed with the hospitalist for admission as the patient is high risk for extremely increased morbidity and mortality Impression & Plan Respiratory failure, Lung cancer, Hypoxia Discharge Plan Visit Data Chief Complaint: Shortness of Breath/Dyspnea Stated Complaint: BREATHING DIFFICULTY ED Provider: Dick Marshall Discharge Problem: Respiratory failure, Lung cancer, Hypoxia Patient Disposition: Admitted As Inpatient Forms Stand Alone Forms: [facility] Pres[facility] Prescriptions: No Action lorazepam 0.5 mg Tablet 0.5 mg PO Q6H PRN (Reason: Anxiety) Rx Instructions: ENDS 08/30/22 heparin lock flush (porcine) [Heparin Lock] 10 unit/mL Solution 0 unit IV TID Rx Instructions: UNSURE OF STRENGTH, USE 5 ML. spironolactone 50 mg Tablet 50 mg PO BID Rx Instructions: 0830 & 1630 sodium chloride 0.9 % (flush) [Saline Flush] Syringe 10 ml IV Q8H Rx Instructions: administer before and after IV drug administration as part of [facility] protocol Morphine Sulfate 5 - 10 mg PO Q4H PRN (Reason: Pain (Scale Score 9-10)) Rx Instructions: SOLUTION 20 MG/ML---GIVE 5 MG FOR PAIN 5-8/10 PAIN SCALE, GIVE 10 MG FOR 9- 10/10 PAIN SCALE. acetaminophen 325 mg tablet 650 mg PO Q6H PRN (Reason: fever or pain) ipratropium-albuterol 0.5 mg-3 mg(2.5 mg base)/3 mL solution for nebulization 3 ml inhalation Q6H PRN (Reason: shortness of breath or wheezing) cefazolin 2 gram recon soln 2 g IV Q8H Qty: 25 0RF Rx Instructions: STARTED 08/13/22, ENDS 08/28/22 Referrals Referrals: [facility] [Primary Care Provider] -
[2022-08-20] MEDS ORDERED: FUROSEMIDE 40 MG/4 ML VIAL IV ONE (02:54)
[2022-08-20 03:05] LABS: Base Excess VBG -2.8 mEq/L; HCO3 VBG 25 mmol/L; Oxygen Saturation VBG < 60.0 %; PCO2 VBG 56 mmHg (38-50); PO2 VBG 37 mmHg; pH VBG 7.26 (7.36-7.41)
[2022-08-20 03:13] LABS: Hematocrit (blood only) 36.2 % (42.0-52.0); Hemoglobin 11.5 g/dl (14.0-18.0); Mean Corpuscular Hemoglobin 29.3 pg (25.0-34.0); Mean Corpuscular Hgb Conc 31.8 g/dL (32.0-36.0); Mean Corpuscular Volume 92.1 fL (80.0-100.0); Mean Platelet Volume 9.7 fL (9.4-12.4); Platelet Count 391 K/uL (130-400); RDW Coefficient of Variation 15.8 % (11.5-14.5); RDW Standard Deviation 52.1 fL (36.4-46.3); Red Blood Count 3.93 M/uL (4.70-6.10)
[2022-08-20 03:29] LABS: Albumin Globulin Ratio 0.7 (0.9-2); Albumin Level 2.2 gm/dl (3.4-5.0); Bilirubin,Total 0.4 mg/dl (0.2-1.0); Calcium 8.1 mg/dl (8.6-10.3); Creatinine Clr Calc Pharmacy 88.6 ml/min; Est GFR (African American) 105.7 ml/min; Est GFR (Non-African American) 91.2 ml/min; Magnesium 1.9 mg/dl (1.7-2.4); Potassium 5.4 mmol/L (3.5-5.1); Total Protein 5.2 gm/dl (6.0-8.3)
[2022-08-20 03:35] LABS: Basophils # (auto) 0.04 K/uL (0-0.2); Basophils % (auto) 0.2 %; Echinocytes 1+; Immature Granulocytes # (auto) 0.21 K/uL (0.01-0.20); Immature Granulocytes % (auto) 0.8 %; Lymphocytes # (auto) 0.41 K/uL (1.2-3.4); Lymphocytes % (auto) 1.6 %; Monocytes # (auto) 0.82 K/uL (0.11-0.59); Monocytes % (auto) 3.1 %; Neutrophils # (auto) 24.82 K/uL (1.40-6.50); Neutrophils % (auto) 94.3 %
[2022-08-20 03:43] LABS: Partial Thromboplastin Ratio 0.9
[2022-08-20] MEDS ORDERED: CEFEPIME 2,000 MG/20 ML VIAL IV STA (03:44)
[2022-08-20 03:46] LABS: Troponin I High Sensitivity 29.4 pg/ml (0-20)
--- NOTE | 2022-08-20 04:38 | History & Physical Report ---
Date of Service August 20, 2022 Assessment & Plan (1) Acute respiratory failure with hypoxia and hypercarbia: Plan: 62-year-old man with recent diagnosis of metastatic colon cancer with lung, liver mets (on 07/30/2022), who presents today with increased work of breathing from [facility]. Now admitted for management of acute hypoxic respiratory failure. Acute hypoxic respiratory failure/pleural effusion/pulmonary edema -WBC 26.3 CXR read unavailable. Per my read, appears to show diffuse bilateral opacities. Right middle lobe consolidation appears advanced vs. prior CXR on 08/11. Left-sided pleural effusion appears greater as well. -Most recent CT obtained during prior admission noted "innumerable pulmonary nodules, lymphadenopathy in the mediastinum, gisele" and "bilateral pleural effusions with associated atelectasis." -Now s/p IV cefepime, IV Lasix in the ED. -Currently on BiPAP. -Likely multifactorial etiology. Lactate, procalcitonin labs pending. * Admit to PCU floor * Continue supplemental oxygen therapy with BiPAP (patient is conditional code and does not want to be intubated) * Continue IV cefepime 2 g every 8 hours * IV Lasix 40 mg daily * Consider chest CT, therapeutic thoracentesis Leukocytosis -Likely pulmonary source. * Empiric antibiotic management as above. * Trend CBC. Ascites/elevated alkaline phosphatase -Patient s/p ultrasound paracentesis on 08/07, removing 4.8 L of cloudy yellow ascitic fluid * Continue IV cefepime. Adjust following paracentesis. * Repeat CT A/P ordered, consider second therapeutic paracentesis Metastatic colon cancer -Discovered on last admission 07/30/2022. -Metastasis to lung, liver, omentum, and peritoneum. Initially studies cytology confirmed adenocarcinoma of the colon. -Oncology consulted at that time, was informed of advanced stage, limited curative options. -Review of last progress note on 08/04/2022 notes patient chose systemic therapy (with IV FOLFOX) as opposed to supportive care/hospice planning. -S/p ostomy placement, Mediport placement on 08/02/2022. * Recommend palliative consult to revisit possibility of discharge to hospice Electrolyte derangement -Sodium 129, potassium 5.4. Pattern suggestive of adrenal failure/crisis. -Suspect secondary to primary malignant process. * Cosyntropin test ordered. * Trend electrolytes. Replete as needed. Elevated troponin -Around baseline. No abnormalities on EKG. Suspect demand ischemia. 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 He presented to the emergency room from [facility] where he was found to have increased work of breathing. In the ED, he was found to be tachycardic, tachypneic, and hypoxic. He was immediately placed on oxygen via nonrebreather mask. Work-up was notable for leukocytosis 26.3, hyponatremia 129, hyperkalemia 5.4, elevated troponin of 29.4, though review of recent labs suggests this is around his baseline. Alkaline phosphatase is elevated at 700, as well as AST at 63. BNP was negative. He received a dose of IV cefepime, and IV Lasix, after which overnight hospitalist was consulted for admission. On admission, he is unable to corroborate HPI, as he is arousable to voice but inattentive and drowsy. He is attached to a BiPAP machine and unable to verbalize much. When asked about code status, he shakes his head when asked if he'd like to be intubated in the event of respiratory failure and nods when asked if he would want chest compressions. Allergies Allergy/AdvReac Type Severity Reaction Status Date / Time No Known Allergies Allergy Verified 08/20/22 02:34 Home Medications Medication Instructions Recorded Confirmed Type cefazolin 2 gram intravenous 2 g IV Q8H #25 ea 08/13/22 08/20/22 Rx solution Morphine Sulfate 5 - 10 mg PO Q4H PRN Pain (Scale 08/20/22 08/20/22 History Score 9-10) acetaminophen 325 mg tablet 650 mg PO Q6H PRN fever or pain 08/20/22 08/20/22 History heparin lock flush (porcine) 10 0 unit IV TID 08/20/22 08/20/22 History unit/mL intravenous solution ipratropium 0.5 mg-albuterol 3 mg 3 ml inhalation Q6H PRN shortness 08/20/22 08/20/22 History (2.5 mg base)/3 mL nebulization of breath or wheezing soln lorazepam 0.5 mg tablet 0.5 mg PO Q6H PRN Anxiety 08/20/22 08/20/22 History sodium chloride 0.9 % (flush) 10 ml IV Q8H 08/20/22 08/20/22 History spironolactone 50 mg tablet 50 mg PO BID 08/20/22 08/20/22 History Past Med/Surg History Medical History Abdominal pain, generalized Advanced care planning/counseling discussion Ascites Cancer related pain Palliative care by specialist Surgical History Ileostomy in place (08/02/22) p Laparoscopic Loop Ilieostomy(Not Applicable) - Reese Domingo DO s Infusaport Insertion(Left) - Arie Ramon MD, FACS Port-A-Cath in place (08/02/22) p Laparoscopic Loop Ilieostomy(Not Applicable) - Reese Domingo DO s Infusaport Insertion(Left) - Arie Rmaon MD, FACS Social History Smoking Status: Former smoker Hx Alcohol Use: Yes Hx Substance Use: No Communication Ability: bipap Fire Extinguisher Sprinkler Inspector Required: No Beliefs That Will Affect Care: Spiritual Current Living Situation: Prison Feels Safe at Home: Yes Assistive Devices: None Review of Systems Review of Systems: All systems reviewed & are unremarkable except as noted in HPI & below Physical Exam Physical Exam: General: No acute distress HEENT: Unable to assess due to BiPAP machine. Respiratory: Unable to auscultate due to BiPAP. Chest port noted Cardiovascular: Unable to auscultate due to BiPAP machine. 3+ pedal edema. GI: RLQ ostomy (beefy red) attached to bag. Surrounding skin uninflamed. Abdomen appears distended. Neuro: Drowsy, unable to ascertain orientation at this time. Results & Data Results & Data Vital Signs (Past 12 Hours) Vital Signs Pulse Pulse Resp BP BP Pulse Ox O2 Del Method 08/20/22 02:32 128 H 08/20/22 03:45 123 H 24 93 08/20/22 03:03 123 H 28 H 91/68 L 84 L Non-rebreather 08/20/22 03:11 122 H 26 H 101/63 92 Non-rebreather 08/20/22 02:46 125 H 28 H 83 L Non-rebreather 08/20/22 02:46 83 L Non-rebreather 08/20/22 02:46 Non-rebreather 08/20/22 02:41 126 H 28 H 97/72 L 83 L Non-rebreather O2 Flow Rate FiO2 08/20/22 02:32 08/20/22 03:45 100 08/20/22 03:03 15 08/20/22 03:11 15 08/20/22 02:46 15 08/20/22 02:46 15 08/20/22 02:46 15 08/20/22 02:41 15 Code Status & VTE Plan VTE Prophylaxis Plan VTE Prophylaxis will be ordered: Yes Resident Activity Tracking Resident Involvement: Resident Care Provided Care Provided: Adult Hospital Medicine (2) Colon cancer Colon location: unspecified part of colon Qualified Code(s): C18.9 - Malignant neoplasm of colon, unspecified (3) Pulmonary metastases Laterality: bilateral Qualified Code(s): C78.01 - Secondary malignant neoplasm of right lung; C78.02 - Secondary malignant neoplasm of left lung (5) Abdominal ascites Ascites type: malignant Qualified Code(s): R18.0 - Malignant ascites
[2022-08-20] MEDS ORDERED: SODIUM CHLORIDE 0.9% 10ML FLUSH IV SCH (05:48)
[2022-08-20] MEDS ORDERED: LORazepam 0.5 MG TAB PO PRN (05:48)
[2022-08-20] MEDS ORDERED: ACETAMINOPHEN 325 MG TAB PO PRN (05:48)
[2022-08-20] MEDS ORDERED: ALBUT/IPRATROP 3MG/0.5MG NEB 3 ML VIAL INH PRN (05:48)
[2022-08-20] MEDS ORDERED: MoRPHine SULFATE 10 MG/0.5 ML UDP PO PRN (06:11)
[2022-08-20] MEDS ORDERED: SODIUM CHLORIDE 0.9% 1000ML 500 ML IV ONE (07:58)
[2022-08-20] MEDS ORDERED: COSYNTROPIN 250 MCG in SYRINGE 4 ML IV SCH (08:00)
--- NOTE | 2022-08-20 08:17 | XRay Report ---
XR chest 1V portable CLINICAL HISTORY: Dyspnea TECHNIQUE: Single frontal radiograph of the chest was obtained. Comparison: Comparison is made to chest radiograph 08/11/2022 FINDINGS: A left portacatheter is seen. Interval worsening of right lung density superimposed on extensive nodu lar disease. The lungs are clear. Small bilateral pleural effusions are seen. IMPRESSION: Extensive pulmonary metastatic disease is again seen. Density in the interval increase which may repr esent confluent metastases or airspace disease. ACT 112: Negative or not required by law. Electronically signed by: Robby Fernandez M.D. 08/20/2022 8:15 AM
[2022-08-20] MEDS ORDERED: OPTIRAY 350 100ml IV ONE (08:39)
[2022-08-20] MEDS ORDERED: SPIRONOLACTONE 25 MG TAB PO SCH (09:00)
[2022-08-20] MEDS ORDERED: FUROSEMIDE 40 MG/4 ML VIAL IV SCH (09:00)
--- NOTE | 2022-08-20 09:12 | CT Scan Report ---
CT OF THE ABDOMEN AND PELVIS WITH CONTRAST CLINICAL HISTORY: Ascites. Malignancy. COMPARISON STUDY: CT of the abdomen and pelvis August 07, 2022. TECHNIQUE: Following IV administration of 87 mL of Optiray, axial images of the abdomen and pelvis we re obtained from the lung bases to the proximal femurs. Images were reviewed in the axial, sagittal, and coronal planes. IV contrast was administered without complication. Automated exposure control wa s utilized for the study. A dose lowering technique was utilized adhering to the principles of ALARA . CT DOSE: 393.17 mGy.cm FINDINGS: Extensive pulmonary metastases within the lower lungs are again noted. Small bilateral pleu ral fusions are again noted. Left pleural effusion is similar to CT of August 17, 2022. The right pleu ral effusion has slightly increased. Extensive right lower lobe consolidation has developed. Left low er lobe airspace opacity is similar to prior exam. No pneumatosis, free air or portal venous gas is p resent. Hepatic metastases have increased in size since exam of August 07, 2022. Index lateral segment hepatic lesion measures approximately 5.1 cm. It previously measured 4.7 cm. Spleen, adrenal glands a re unremarkable. Mild pancreatic ductal dilatation remains unchanged. There is no hydronephrosis. The re is no evidence for a bowel obstruction. Right lower quadrant ileostomy is noted. Mass within the c ecum/ileocecal valve is again noted. Large amount of stool within the rectum is present. A Wise ball oon within the bladder is present. Large volume ascites is noted. Retroperitoneal lymphadenopathy and peritoneal carcinomatosis appear similar to prior exam. No suspicious osseous lesions are noted. Jevon or vasculature is grossly patent. Anasarca is present. IMPRESSION: 1. Large volume ascites. 2. No bowel obstruction. Large amount of stool within the rectum. Status post ileostomy. 3. Development of extensive right lower lobe consolidation suggestive of pneumonia. Persistent left l ower lobe consolidation. 4. Extensive metastatic disease, as shown on CT of August 17, 2022. Increased conspicuity of numerous hepatic metastases. This favors disease progression although could be treatment related. ACT 112: Negative or not required by law. Electronically signed by: Jose Cordova M.D. 08/20/2022 9:10 AM
[2022-08-20] MEDS ORDERED: CEFEPIME 2,000 MG in SYRINGE 0 ML IV SCH (12:00)
[2022-08-20] MEDS ORDERED: MoRPHine SULFATE 2 MG/ML CARP IV PRN (12:05)
--- NOTE | 2022-08-20 12:57 | Palliative Care Consultation ---
Date of Consultation August 20, 2022 Assessment & Plan (1) Dyspnea: Severe despite previous morphine dosing Will bolus with 4mg IV x 1 and start infusion I talked with Domingo and his sisters about use of morphine to relieve air hunger and work of breathing. We also discussed oxygen support. He finds the face mask uncomfortable. He had been on bipap and is now on 15L. Discussed transition to nasal cannula with RN. Goal of oxygen is to relieve dyspnea in conjunction with opioids rather than maintain adequate O2 saturation. (2) Palliative care encounter: I talked with Domingo and his sisters. He realizes that he is approaching his dying time. I asked him if he had any fears or worries. He told me that he was worried about leaving his family behind. His sisters tell me that he has not been making his health a priority since the of his a few years ago. We talked about using medications to manage his symptoms and provide some control to allow him to have a peaceful , particulaly when everything seems so beyond his control at this time. His sisters asked about prognosis which we discussed outside the room. They also asked about hospice. We discussed hospice care and possibility of return to [facility] with hospice, though he is likely to within hours to a day or two. Asked RN to reach out to take out waiter/waitress for spiritual support as Domingo has not really had time to process his diagnosis or grieve. History of Present Illness Reason for Consultation: goals of care Requesting Physician: Dr. Domínguez Attending Physician: Bryn Domínguez MD History of Present Illness 62 yo gentleman with history of COPD who was recently diagnosed with widely metastatic colon cancer. He has know metastatic disease in lung and liver with peritoneal carcinomatosis. 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 He is s/p laparascopic loop ileostomy. He was admitted earlier today with tachypnea, tachycardia and hypoxia with elevated troponin. He has leukocytosis with elevated lactate, hyponatremia and hyperkalemia. Chest CT shows bilateral pleural effusions with extensive pulmonary mets, as well as liver mets with suggestion of disease progression compared to study two weeks ago. He is awake and alert and has spoken with Dr. Domínguez about the severity of his illness. He realizes that he is approaching his dying time. He denies pain but does complain of feeling short of breath. He has had 13mg OME in prn morphine dosing in the last two hours. Allergies Allergy/AdvReac Type Severity Reaction Status Date / Time No Known Allergies Allergy Verified 08/20/22 02:34 Home Medications Medication Instructions Recorded Confirmed Type cefazolin 2 gram intravenous 2 g IV Q8H #25 ea 08/13/22 08/20/22 Rx solution Morphine Sulfate 5 - 10 mg PO Q4H PRN Pain (Scale 08/20/22 08/20/22 History Score 9-10) acetaminophen 325 mg tablet 650 mg PO Q6H PRN fever or pain 08/20/22 08/20/22 History heparin lock flush (porcine) 10 0 unit IV TID 08/20/22 08/20/22 History unit/mL intravenous solution ipratropium 0.5 mg-albuterol 3 mg 3 ml inhalation Q6H PRN shortness 08/20/22 08/20/22 History (2.5 mg base)/3 mL nebulization of breath or wheezing soln lorazepam 0.5 mg tablet 0.5 mg PO Q6H PRN Anxiety 08/20/22 08/20/22 History sodium chloride 0.9 % (flush) 10 ml IV Q8H 08/20/22 08/20/22 History spironolactone 50 mg tablet 50 mg PO BID 08/20/22 08/20/22 History Patient History Medical History Abdominal pain, generalized Advanced care planning/counseling discussion Ascites Cancer related pain Palliative care by specialist Surgical History Ileostomy in place (08/02/22) p Laparoscopic Loop Ilieostomy(Not Applicable) - Reese Domingo DO s Infusaport Insertion(Left) - Arie Ramon MD, FACS Port-A-Cath in place (08/02/22) p Laparoscopic Loop Ilieostomy(Not Applicable) - Reese Domingo, DO s Infusaport Insertion(Left) - Arie Ramon MD, FACS Social History Smoking Status: Former smoker Hx Alcohol Use: Yes Hx Substance Use: No Communication Ability: bipap Commercial Loan 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 Required: No Beliefs That Will Affect Care: None Current Living Situation: [facility] Feels Safe at Home: Yes Assistive Devices: None Review of Systems Review of Systems: Pain 0/3 Dyspnea 2/3 Nausea 0/3 Drowsiness 1/3 Anxiety 1/3 Physical Exam Constitutional: + ill appearing Respiratory: + labored breathing and + uses accessory muscles Cardiovascular: Rate/Rhythm: + tachycardic and + irregularly irregular Gastrointestinal (Abdomen): nontender Musculoskeletal: Extremities: + muscle atrophy Neurologic: Speech / Cognition: normal cognition Results & Data Vital Signs (Past 12 Hours) Vital Signs Temp Pulse Pulse Resp BP BP Pulse Ox 08/20/22 10:49 98.4 F 110 H 22 104/69 94 08/20/22 10:29 113 H 19 94 08/20/22 07:56 97.2 F L 113 H 20 107/78 97 08/20/22 07:13 107 H 19 94 08/20/22 05:46 100 H 08/20/22 05:56 08/20/22 05:56 98.8 F 116 H 18 101/74 97 08/20/22 02:32 128 H 08/20/22 03:45 123 H 24 93 08/20/22 03:03 123 H 28 H 91/68 L 84 L 08/20/22 03:11 122 H 26 H 101/63 92 08/20/22 02:46 125 H 28 H 83 L 08/20/22 02:46 83 L 08/20/22 02:46 08/20/22 02:41 126 H 28 H 97/72 L 83 L O2 Del Method O2 Flow Rate FiO2 08/20/22 10:49 BiPAP 08/20/22 10:29 90 08/20/22 07:56 BiPAP 08/20/22 07:13 100 08/20/22 05:46 08/20/22 05:56 BiPAP 08/20/22 05:56 BiPAP 08/20/22 02:32 08/20/22 03:45 100 08/20/22 03:03 Non-rebreather 15 08/20/22 03:11 Non-rebreather 15 08/20/22 02:46 Non-rebreather 08/20/22 02:46 Non-rebreather 15 08/20/22 02:46 Non-rebreather 15 08/20/22 02:41 Non-rebreather 15 PG Care Time/CCT Total # of Minutes Spent Total Time Spent: 62 Total Time Spent with Patient: Total time spent is greater than 50% in coordination of care (as documented) at patient's floor/unit and/or counseling patient: [id number] symptom management, patient and family education and support, prognosis, hospice, coordination of care Coding Level of Care Code 94773 INT INP/OBS CARE 2/55MIN Diagnoses Dyspnea R06.00 Palliative care encounter Z51.5
[2022-08-20] MEDS ORDERED: GLYCOPYRROLATE 0.2 MG/ML VIAL IV PRN (13:37)
[2022-08-20] MEDS ORDERED: MoRPHine BOLUS from BAG IV PRN (13:37)
[2022-08-20] MEDS ORDERED: ONDANSETRON INJ 2 MG/ML 2 ML VIAL IV PRN (13:37)
[2022-08-20] MEDS ORDERED: LORazepam 2 MG/1 ML VIAL IV PRN (13:37)
[2022-08-20] MEDS ORDERED: MoRPHine SULFATE 4 MG/ML 1 ML CARP\\VIAL IV ONE (13:44)
[2022-08-20] MEDS ORDERED: MoRPHine SULF/NSS 250 MG/250 ML BTL IV SCH (13:45)
--- NOTE | 2022-08-20 14:23 | Hospitalist Progress Note ---
Date of Service August 20, 2022 Assessment & Plan (1) Dyspnea: (2) Acute respiratory failure with hypoxia and hypercarbia: (3) Respiratory failure: (4) Hypoxia: (5) Ascites, malignant: (6) Ileostomy in place: Plan I had a conversation with the patient and her family. Explained the grim situation with stage IV colon cancer and the poor prognosis. He is not a candidate for chemotherapy given his level of deconditioning and malnutrition. The patient decided on comfort measures only. He decided on DNR/DNI status. I informed palliative care about his decision. The BiPAP mask will be removed according to his wishes. He was ordered IV morphine as needed for air hunger and pain. Admission and Anticipated Discharge Date Admission Date: August 20, 2022 Subjective Mr. Puckett is known to me from his last hospitalization. He was diagnosed with stage IV colon cancer the last time he was here. He was seen by palliative care the last time he was here but was resistant to switch to a palliative approach. He had MSSA bacteremia which needed IV antibiotics and thus he was transferred to SNF to complete IV antibiotics. The plan was for him to finish the antibiotic course, be discharged from rehab, and then follow-up with oncology to initiate chemotherapy. However, he is back to the hospital with increased work of breathing. He is now on the BiPAP. He is accompanied by his 2 sisters and [id number]. His and the sisters would be his next of kin. I spoke to the patient and the family about his diagnosis and grim prognosis. After a long discussion, he decided on comfort measures only. He wishes to be off of the BiPAP. He is now a DNR/DNI. I informed palliative care team about this new change. Review of Systems Review of Systems: Unobtainable due to reduced consciousness Physical Exam Physical Exam: General: Drowsy but able to converse. Frail looking. Cachectic Heart: S1, S2/regular rate and rhythm, no murmur rubs or gallops Lungs: Diminished breath sounds bilaterally. Increased effort when BiPAP mask removed Abdomen: Distended abdomen. Ostomy bag in place. Extremities: No clubbing/cyanosis. 2+ bilateral edema Behavior: Appropriate, cooperative Results & Data Results & Data Vital Signs (Past 12 Hours) Vital Signs Temp Pulse Pulse Resp BP BP Pulse Ox 08/20/22 09:00 08/20/22 10:49 36.9 C 110 H 22 104/69 94 08/20/22 10:29 113 H 19 94 08/20/22 07:56 36.2 C L 113 H 20 107/78 97 08/20/22 07:13 107 H 19 94 08/20/22 05:46 100 H 08/20/22 05:56 08/20/22 05:56 37.1 C 116 H 18 101/74 97 08/20/22 02:32 128 H 08/20/22 03:45 123 H 24 93 08/20/22 03:03 123 H 28 H 91/68 L 84 L 08/20/22 03:11 122 H 26 H 101/63 92 08/20/22 02:46 125 H 28 H 83 L 08/20/22 02:46 83 L 08/20/22 02:46 08/20/22 02:41 126 H 28 H 97/72 L 83 L O2 Del Method O2 Flow Rate FiO2 08/20/22 09:00 BiPAP 08/20/22 10:49 BiPAP 08/20/22 10:29 90 08/20/22 07:56 BiPAP 08/20/22 07:13 100 08/20/22 05:46 08/20/22 05:56 BiPAP 08/20/22 05:56 BiPAP 08/20/22 02:32 08/20/22 03:45 100 08/20/22 03:03 Non-rebreather 15 08/20/22 03:11 Non-rebreather 15 08/20/22 02:46 Non-rebreather 15 08/20/22 02:46 Non-rebreather 15 08/20/22 02:46 Non-rebreather 15 08/20/22 02:41 Non-rebreather 15 PG Care Time/CCT Total # of Minutes Spent Total Time Spent with Patient: Total time spent is greater than 50% in coordination of care (as documented) at patient's floor/unit and/or counseling patient: Coding Level of Care Code None Diagnoses Dyspnea R06.00 Acute respiratory failure with hypoxia and hypercarbia J96.01; J96.02 Respiratory failure J96.90 Hypoxia R09.02 Ascites, malignant R18.[address] Z93.2
--- NOTE | 2022-08-20 17:49 | Electrocardiogram Report ---
Test Reason : Blood Pressure : / mmHG Vent. Rate : 127 BPM Atrial Rate : 127 BPM P-R Int : 158 ms QRS Dur : 082 ms QT Int : 304 ms P-R-T Axes : 055 067 085 degrees QTc Int : 441 ms Poor data quality, interpretation may be adversely affected Sinus tachycardia Otherwise normal ECG When compared with ECG of 30-JUL-2022 14:10, No significant change was found Confirmed by Hong Joya ([id number]) on 08/20/2022 5:49:20 PM Referred By: REFERRED SELF Confirmed By:Tray Joya
--- NOTE | 2022-08-21 00:21 | Death Pronouncement Note ---
Date of Service August 20, 2022 Pronouncement Note Admission Date Admission Date: August 20, 2022 Date and Time of Date of : 08/20/22 Time of : 23:32 Contributing Factors (1) Acute respiratory failure with hypoxia and hypercarbia: (2) Colon cancer: (3) Pulmonary metastases: (4) SBO (small bowel obstruction): (5) Abdominal ascites: (6) Hyponatremia: (7) Peripheral edema: (8) Leukocytosis: (9) Ileostomy in place: Summary Additional details: At approximately 10:30 PM, was notified by nurse that patient was no longer breathing. Went to bedside to examine the patient. No family present at bedside. On exam, was unable to detect radial pulse. No heart sounds heard on auscultation. No breath sounds heard on auscultation. No pupillary reflex. No corneal scratch reflex. Time of at conclusion of exam at 11:32 PM. Notified sister, Kisha Castanon, who preferred to meet him [place] [facility] [place]. Instructed nursing to contact other family members, to determine whether they would prefer to see him at bedside or at the [facility] [place]. Additional Data Family: contacted Attending physician: Bryn Domínguez MD Was code activated?: No Resident Activity Tracking Resident Involvement: Resident Care Provided and Blood Bank Laboratory Technician Coverage Note Care Provided: Adult Hospital Medicine
--- NOTE | 2022-08-21 07:51 | Discharge Summary ---
Date of Service August 20, 2022 Admission HPI Per Admitting Provider Redd is a 62-year-old man with medical history of COPD on 4 L of oxygen, metastatic colon cancer with lung, liver mets, bowel obstruction 2/2 ileocecal mass, peritoneal carcinomatosis (s/p laparoscopic loop ileostomy, port placement on 08/02/2022). He presented to the emergency room from [facility] where he was found to have increased work of breathing. In the ED, he was found to be tachycardic, tachypneic, and hypoxic. He was immediately placed on oxygen via nonrebreather mask. Work-up was notable for leukocytosis 26.3, hyponatremia 129, hyperkalemia 5.4, elevated troponin of 29.4, though review of recent labs suggests this is around his baseline. Alkaline phosphatase is elevated at 700, as well as AST at 63. BNP was negative. He received a dose of IV cefepime, and IV Lasix, after which overnight hospitalist was consulted for admission. On admission, he is unable to corroborate HPI, as he is arousable to voice but inattentive and drowsy. He is attached to a BiPAP machine and unable to verbaliz e much. When asked about code status, he shakes his head when asked if he'd like to be intubated in the event of respiratory failure and nods when asked if he would want chest compressions. Admission Exam Per Admitting Provider General: No acute distress HEENT: Unable to assess due to BiPAP machine. Respiratory: Unable to auscultate due to BiPAP. Chest port noted Cardiovascular: Unable to auscultate due to BiPAP machine. 3+ pedal edema. GI: RLQ ostomy (beefy red) attached to bag. Surrounding skin uninflamed. Abdomen appears distended. Neuro: Drowsy, unable to ascertain orientation at this time. Principal Diagnosis Acute respiratory failure with hypoxia and hypercarbia due to pulmonary metastases Stage IV colon cancer Peritoneal carcinomatosis leading to malignant ascites Severe protein calorie malnutrition Generalized debility Discharge Exam General: Patient Discharge Data Allergies Allergy/AdvReac Type Severity Reaction Status Date / Time No Known Allergies Allergy Verified 08/20/22 02:34 Consultations 08/20/22 04:08 ED Decision to Admit Stat 08/20/22 07:46 Consult Palliative Care Routine 08/20/22 13:37 Consult Palliative Care Routine Ordered Studies 08/20/22 05:53 CT abd pelvis IV con only Routine Hospital Course (1) Dyspnea: (2) Acute respiratory failure with hypoxia and hypercarbia: (3) Respiratory failure: (4) Hypoxia: (5) Ascites, malignant: (6) Ileostomy in place: Plan The patient was recently discharged with a diagnosis of stage IV colon cancer, peritoneal carcinomatosis leading to ascites, pulmonary mets, MSSA bacteremia. He was discharged on IV antibiotics to complete the course. Once he completed the course, the plan was to discharge him from the rehab and outpatient follow- up with oncology to discuss starting chemotherapy. However the patient returned to the hospital within 1 week of discharge with acute hypoxic and hypercarbic respiratory failure and dyspnea. This is most likely related to his cancer and pulmonary mets. I had a conversation with the patient and his family. Explained the grim situation with stage IV colon cancer and the poor prognosis. He was not a candidate for chemotherapy given his level of deconditioning and malnutrition. The patient decided on comfort measures only. He decided on DNR/DNI status. Palliative care was informed. Comfort care orders were placed. Per the note, the patient on 08/20 at 2332. Total Time Total Time Spent Total Time Spent (In Minutes): 35 Discharge Plan Discharge Items Patient Disposition: Other Date/Time: 08/20/22 11:32 Coding Level of Care Code 13007 INP/OBS DISCH >30 MIN Diagnoses Dyspnea R06.00 Acute respiratory failure with hypoxia and hypercarbia J96.01; J96.02 Respiratory failure J96.90 Hypoxia R09.02 Ascites, malignant R18.[address] Z93.2
== END 2022-08-21 00:52 | disposition expired | DRG 189 ==
LOC: ED 02:27 → 2S 04:24 → SUATTDRO 04:24 → 2S 05:34 → 3N 17:42